=== PATIENT | male | born 1940 | race Caucasian/White ===

== ENCOUNTER 2017-08-20 12:15 | Outpatient (RCR) | payer MEDICARE, OTHER, SELFPAY ==
--- NOTE | 2017-07-11 11:16 | PT.OTN ---
Current Diagnoses Achilles tendinitis, left leg (07/11/17) Transition note: On July 10, 2017 our therapy services consisting of Speech, Occupational, and Physical Therapy transitioned from the [employer] electronic documentation system to a new [employer] electronic documentation system.?? All documentation prior to July 10 can be found under [employer] saved data. From July 10 forward all medical record documentation will be in [employer] 6[employer]1.
--- NOTE | 2017-07-11 15:21 | PT.OTN ---
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 6 PT-OP-C Subjective Start: 07/11/17 14:50 Freq: Status: Active Protocol: Activity Type Activity Date Activity User E-Sign Co-Sign Detail Recorded Client Recorded Date Recorded By Document 07/11/17 14:57 CHUY [id number] 07/11/17 14:59 EA 07/11/17 14:57 OP-PT Subjective [Patient Comments] -Patient Comments Pt reports able to help his neighbour to move furniture and left heel pain did not increa -Patient Reported Progress Improving PT-OP-Q Treatments Start: 07/11/17 14:50 Freq: Status: Active Protocol: Activity Type Activity Date Activity User E-Sign Co-Sign Detail Recorded Client Recorded Date Recorded By Document 07/11/17 15:04 CHUY [id number] 07/11/17 15:06 EA 07/11/17 15:04 Cardio Equipment [Recumbent Stepper (Sci-Fit)] -Duration (Minutes) 5 -Resistance 2 -Seat Position seat 12 w/ no arm help Gym Equipment [Shuttle Recovery] Unilateral Squats -Resistance 1-3 cords -Shuttle Recovery Platform Stable -Reps/Time 12 x3 Therapeutic Exercises [Sitting Exercises] 1 -Sitting Exercise Name GTB ankle plantarflexion -Side left -Resistance green TB -Reps/Minutes 12 x 3 [Other Exercises] 2 -Other Exercise Name Sit to stand heel raises w/ rails support -Side bilateral -Resistance BW -Reps/Minutes 10 x 2 1 -Other Exercise Name 4 step down and up backward leading w/ right foot -Side left -Resistance BW -Equipment Used step rails for support -Reps/Minutes 10x2 Manual Therapy Treatment [Soft Tissue Mobilization] 2 -Body Location Gastrocsoleus -Mobilization Type Sustained Pressure -Intensity/Depth Moderate -Body Position Prone 1 -Mobilization Type Cross-Friction -Intensity/Depth Moderate -Body Position Prone -Comments Left heel cord to calcaneal junction Self-Care/Home Management Treatment [Education] -Patient Education Home Exercise Program [Activities] -Self-Care/Home Management Activities TB exercises PT-OP-R Modalities Start: 07/11/17 14:50 Freq: Status: Active Protocol: Activity Type Activity Date Activity User E-Sign Co-Sign Detail Recorded Client Recorded Date Recorded By Document 07/11/17 15:00 CHUY [id number] 07/11/17 15:04 EA 07/11/17 15:00 Electric Stimulation [Electric Stimulation] Interferential Current (IFC) -Body Location L, gastrocsoleus -Duration (Minutes) 15 -Patient Position Sidelying -Combined With Heat/Cold Cold Pack Hot Pack/Cold Pack [Treatment] Cold Pack -Location left heel -Patient Position Sidelying -Treatment Duration (minutes) 15 -Patient Tolerance Good Ultrasound Therapy [Treatment] Left Ankle -Treatment Duration (minutes) 5 -Patient Position Prone -Coupling Medium Ultrasound Gel -Frequency Setting (mHz) 3 -Mode Setting Continuous -Intensity Setting (w/cm2) 1 -Patient Tolerance Good PT-OP-T Assessment and Plan Start: 07/11/17 14:50 Freq: Status: Active Protocol: Activity Type Activity Date Activity User E-Sign Co-Sign Detail Recorded Client Recorded Date Recorded By Document 07/11/17 14:59 CHUY [id number] 07/11/17 15:00 EA 07/11/17 14:59 Physical Therapy Assessment [Assessment Summary] -Assessment Patient tolerated treatment well w/ no signs of adverse effect after therapeutic exercises. Physical Therapy Plan [Next Visit Focus/Plan] -Next Visit Plan Cont. with current program , advance as toerated.
--- NOTE | 2017-07-16 16:15 | PT.OTN ---
Current Diagnoses Achilles tendinitis, left leg (07/16/17) Physical Therapy Treatment Note PT-OP-A Visit Information Start: 07/11/17 14:50 Freq: Status: Active Protocol: Activity Type Activity Date Activity User E-Sign Co-Sign Detail Recorded Client Recorded Date Recorded By Document 07/16/17 15:59 EA [id number] 07/16/17 16:13 EA 07/16/17 15:59 Out-Patient Physical Therapy Visit Information [Visit Information] -Total Visit Minutes 60 -Visit Number 7 PT-OP-C Subjective Start: 07/11/17 14:50 Freq: Status: Active Protocol: Activity Type Activity Date Activity User E-Sign Co-Sign Detail Recorded Client Recorded Date Recorded By Document 07/16/17 15:59 EA [id number] 07/16/17 16:13 EA 07/16/17 15:59 OP-PT Subjective [Patient Comments] -Patient Comments Patient reports left heel is getting better and he has been doing yard work and no reports of aggravating factors at this time. PT-OP-Q Treatments Start: 07/11/17 14:50 Freq: Status: Active Protocol: Activity Type Activity Date Activity User E-Sign Co-Sign Detail Recorded Client Recorded Date Recorded By Document 07/16/17 15:59 EA [id number] 07/16/17 16:13 EA 07/16/17 15:59 Cardio Equipment [Recumbent Stepper (Sci-Fit)] -Duration (Minutes) 5 -Resistance 2 -Seat Position seat 12 w/ no arm help Gym Equipment [Shuttle Recovery] Unilateral Squats -Resistance 1-3 cords -Shuttle Recovery Platform Stable -Reps/Time 12 x3 Therapeutic Exercises [Sitting Exercises] 1 -Sitting Exercise Name GTB ankle plantarflexion -Side left -Resistance green TB -Reps/Minutes 12 x 3 [Other Exercises] 2 -Other Exercise Name Sit to stand heel raises w/ rails support -Side bilateral -Resistance BW -Reps/Minutes 10 x 2 1 -Other Exercise Name 4 step down and up backward leading w/ right foot -Side left -Resistance BW -Equipment Used step rails for support -Reps/Minutes 10x2 Manual Therapy Treatment [Soft Tissue Mobilization] 2 -Body Location Gastrocsoleus -Mobilization Type Sustained Pressure -Intensity/Depth Moderate -Body Position Prone 1 -Mobilization Type Cross-Friction -Intensity/Depth Moderate -Body Position Prone -Comments Left heel cord to calcaneal junction PT-OP-R Modalities Start: 07/11/17 14:50 Freq: Status: Active Protocol: Activity Type Activity Date Activity User E-Sign Co-Sign Detail Recorded Client Recorded Date Recorded By Document 07/16/17 15:59 CHUY [id number] 07/16/17 16:13 EA 07/16/17 15:59 Hot Pack/Cold Pack [Treatment] Cold Pack -Location left heel -Patient Position Sidelying -Treatment Duration (minutes) 15 -Patient Tolerance Good Ultrasound Therapy [Treatment] Left Ankle -Treatment Duration (minutes) 5 -Patient Position Prone -Coupling Medium Ultrasound Gel -Frequency Setting (mHz) 3 -Mode Setting Continuous -Intensity Setting (w/cm2) 1 -Patient Tolerance Good PT-OP-T Assessment and Plan Start: 07/11/17 14:50 Freq: Status: Active Protocol: Activity Type Activity Date Activity User E-Sign Co-Sign Detail Recorded Client Recorded Date Recorded By Document 07/16/17 15:59 CHUY [id number] 07/16/17 16:13 EA 07/16/17 15:59 Physical Therapy Assessment [Assessment Summary] -Assessment Patient is progressing well Physical Therapy Plan [Next Visit Focus/Plan] -Next Visit Plan Cont. w/ current plan and progress as tolerated
--- NOTE | 2017-07-19 16:36 | PT.OTN ---
Current Diagnoses Achilles tendinitis, left leg (07/19/17) Physical Therapy Treatment Note PT-OP-A Visit Information Start: 07/11/17 14:50 Freq: Status: Active Protocol: Document 07/19/17 16:31 EA (Rec: 07/19/17 16:35 EA [id number]) Out-Patient Physical Therapy Visit Information Visit Information Visit Type Treatment Note Total Visit Minutes 60 Visit Number 8 PT-OP-C Subjective Start: 07/11/17 14:50 Freq: Status: Active Protocol: Document 07/19/17 16:31 EA (Rec: 07/19/17 16:35 EA [id number]) OP-PT Subjective Patient Comments Patient Comments Patient reports has been on his knees all day and foot is quite sore today. PT-OP-Q Treatments Start: 07/11/17 14:50 Freq: Status: Active Protocol: Document 07/19/17 16:31 EA (Rec: 07/19/17 16:35 EA [id number]) Cardio Equipment Recumbent Stepper (Sci-Fit) Duration (Minutes) 5 Resistance 2 Seat Position seat 12 w/ no arm help Gym Equipment Shuttle Recovery Unilateral Squats Resistance 1-3 cords Shuttle Recovery Platform Stable Reps/Time 12 x3 Therapeutic Exercises Sitting Exercises 1 Sitting Exercise Name GTB ankle plantarflexion Side left Resistance green TB Reps/Minutes 12 x 3 Other Exercises 2 Other Exercise Name Sit to stand heel raises w/ rails support Side bilateral Resistance BW Reps/Minutes 10 x 2 1 Other Exercise Name 4 step down and up backward leading w/ right foot Side left Resistance BW Equipment Used step rails for support Reps/Minutes 10x2 Manual Therapy Treatment Soft Tissue Mobilization 2 Body Location Gastrocsoleus Mobilization Type Sustained Pressure Intensity/Depth Moderate Body Position Prone 1 Mobilization Type Cross-Friction Intensity/Depth Moderate Body Position Prone Comments Left heel cord to calcaneal junction PT-OP-R Modalities Start: 07/11/17 14:50 Freq: Status: Active Protocol: Document 07/19/17 16:31 EA (Rec: 07/19/17 16:35 EA [id number]) Ultrasound Therapy Treatment Left Ankle Treatment Duration (minutes) 5 Patient Position Prone Coupling Medium Ultrasound Gel Frequency Setting (mHz) 3 Mode Setting Continuous Intensity Setting (w/cm2) 1 Patient Tolerance Good PT-OP-T Assessment and Plan Start: 07/11/17 14:50 Freq: Status: Active Protocol: Document 07/19/17 16:31 CHUY (Rec: 07/19/17 16:35 EA [id number]) Physical Therapy Assessment Assessment Summary Assessment Patient tolerated treatment well Physical Therapy Plan Next Visit Focus/Plan Next Visit Plan Advanced as tolerated
--- NOTE | 2017-07-25 17:02 | PT.OTN ---
Current Diagnoses Achilles tendinitis, left leg (07/25/17) Physical Therapy Treatment Note PT-OP-A Visit Information Start: 07/11/17 14:50 Freq: Status: Active Protocol: Document 07/25/17 15:14 EA (Rec: 07/25/17 15:24 EA [id number]) Out-Patient Physical Therapy Visit Information Visit Information Visit Type Treatment Note Total Visit Minutes 60 Visit Number 9 PT-OP-C Subjective Start: 07/11/17 14:50 Freq: Status: Active Protocol: Document 07/25/17 15:14 EA (Rec: 07/25/17 15:24 EA [id number]) OP-PT Subjective Patient Comments Patient Comments Patient reports that he has been working in the yard and no increased in pain and he feels that it's getting better . PT-OP-Q Treatments Start: 07/11/17 14:50 Freq: Status: Active Protocol: Document 07/25/17 15:14 EA (Rec: 07/25/17 15:24 EA [id number]) Cardio Equipment Recumbent Stepper (Sci-Fit) Duration (Minutes) 5 Resistance 3 Seat Position seat 12 w/ no arm help Gym Equipment Shuttle Recovery Unilateral Squats Resistance 2-4 cords Shuttle Recovery Platform Stable Reps/Time 12 x3 Therapeutic Exercises Prone Exercises 1 Prone Exercise Name Flexibility exercises to left HIP ER, and calves Reps/Minutes x 30 SH x 3 Sitting Exercises 1 Sitting Exercise Name GTB ankle plantarflexion Side left Resistance green TB Reps/Minutes 12 x 3 Other Exercises 2 Other Exercise Name Sit to stand heel raises w/ rails support Side bilateral Resistance BW Reps/Minutes 10 x 2 1 Other Exercise Name 4 step down and up backward leading w/ right foot Side left Resistance BW Equipment Used step rails for support Reps/Minutes 10x2 Manual Therapy Treatment Soft Tissue Mobilization 2 Body Location Gastrocsoleus Mobilization Type Sustained Pressure Intensity/Depth Moderate Body Position Prone 1 Mobilization Type Cross-Friction Intensity/Depth Moderate Body Position Prone Comments Left heel cord to calcaneal junction PT-OP-R Modalities Start: 07/11/17 14:50 Freq: Status: Active Protocol: Document 07/25/17 15:14 EA (Rec: 07/25/17 15:24 EA [id number]) Ultrasound Therapy Treatment Left Ankle Treatment Duration (minutes) 5 Patient Position Prone Coupling Medium Ultrasound Gel Frequency Setting (mHz) 3 Mode Setting Continuous Intensity Setting (w/cm2) 1 Patient Tolerance Good PT-OP-T Assessment and Plan Start: 07/11/17 14:50 Freq: Status: Active Protocol: Document 07/25/17 15:14 CHUY (Rec: 07/25/17 15:24 EA [id number]) Physical Therapy Assessment Goals One Impairment LEFS score of 45 Boom Man Goal (LTG) LEFS score of 55 LTG Duration 2 Progress Towards Goals Progress Towards Goals Progressing Toward Goals Assessment Summary Assessment Patient have improved gait and has decreased tednerness to left heel. Recommended to see patient in two weeks. Physical Therapy Plan Next Visit Focus/Plan Next Visit Plan Advance as tolerated. Re- assess next visit.
--- NOTE | 2017-08-07 16:00 | PT.OTN ---
Current Diagnoses Achilles tendinitis, left leg (08/07/17) Physical Therapy Treatment Note PT-OP-A Visit Information Start: 07/11/17 14:50 Freq: Status: Active Protocol: Document 08/07/17 14:18 EA (Rec: 08/07/17 14:31 EA [id number]) Out-Patient Physical Therapy Visit Information Visit Information Visit Type Treatment Note Visit Note No charge re-eval performed at this visit. Total Visit Minutes 60 Visit Number 10 PT-OP-C Subjective Start: 07/11/17 14:50 Freq: Status: Active Protocol: Document 08/07/17 14:18 EA (Rec: 08/07/17 14:31 EA [id number]) OP-PT Subjective Patient Comments Patient Comments Patient reports neck is improving very well and pain frequecy is much less than before. Patient reports that he has been doing yard work and pain to left heel is not bother him as much as before. Patient Reported Progress Improving Patient Questionnaires Lower Extremity Functional Scale LEFS Score 60 LEFS Impairment 20 to 39% Impaired (Score 48- 62) PT-OP-Q Treatments Start: 07/11/17 14:50 Freq: Status: Active Protocol: Document 08/07/17 14:18 EA (Rec: 08/07/17 14:31 EA [id number]) Therapeutic Exercises Prone Exercises 1 Prone Exercise Name Flexibility exercises to left HIP ER, and calves Reps/Minutes x 30 SH x 3 Sitting Exercises 1 Sitting Exercise Name RTB ankle plantarflexion Side left Resistance green TB Reps/Minutes 12 x 3 Other Exercises 2 Other Exercise Name Sit to stand heel raises w/ rails support Side bilateral Resistance BW Reps/Minutes 10 x 2 1 Other Exercise Name 6 step down and up backward leading w/ right foot Side left Resistance BW Equipment Used step rails for support Reps/Minutes 10x2 Manual Therapy Treatment Soft Tissue Mobilization 2 Body Location Gastrocsoleus Mobilization Type Sustained Pressure Intensity/Depth Moderate Body Position Prone 1 Mobilization Type Cross-Friction Intensity/Depth Moderate Body Position Prone Comments Left heel cord to calcaneal junction PT-OP-R Modalities Start: 07/11/17 14:50 Freq: Status: Active Protocol: Document 08/07/17 14:18 EA (Rec: 08/07/17 14:31 EA [id number]) Hot Pack/Cold Pack Treatment Cold Pack Location left heel Patient Position Sidelying Treatment Duration (minutes) 15 Patient Tolerance Good Ultrasound Therapy Treatment Left Ankle Treatment Duration (minutes) 5 Patient Position Prone Coupling Medium Ultrasound Gel Frequency Setting (mHz) 3 Mode Setting Continuous Intensity Setting (w/cm2) 1 Patient Tolerance Good PT-OP-T Assessment and Plan Start: 07/11/17 14:50 Freq: Status: Active Protocol: Document 08/07/17 14:18 EA (Rec: 08/07/17 14:31 EA [id number]) Physical Therapy Assessment Goals Two Impairment [place] 1 tenderness to distal TA attachment Fpc Goal (LTG) Patient will exhibit 0 tenderness to distal L heel cord attachment LTG Duration 4 wks One Impairment LEFS score of 60 Fpc Goal (LTG) LEFS score of 65 LTG Duration 4 wks Progress Towards Goals Progress Towards Goals Progressing Toward Goals Progress Comments Patient is progress well toward goals and will cont. to benefit with skilled PT. Assessment Summary Assessment Patient is progress well toward goals and will cont. to benefit with skilled PT. Physical Therapy Plan Frequency and Duration Frequency of Treatment 1x/Week Plan of Care Start Date 08/06/17 Plan of Care End Date 09/03/17 Therapeutic Interventions Therapeutic Interventions Home Exercise Program Neuromuscular Re-education Patient/Caregiver Education Self-Care/Home Management Soft Tissue Mobilization Taping Therapeutic Exercises Modalities Cold Pack/Ice Massage Hot Packs Ultrasound Next Visit Focus/Plan Next Visit Plan Functional mobility exercises that mimics kneeling, gardening and stari climbing. Please Sign and Return: I have reviewed this Plan of Care and certify that the skilled therapy services above are required to meet the patient???s needs. Physician Signature Date Printed Name and Credentials Clinical Instructor Signature Printed Name and Credentials
--- NOTE | 2017-08-07 16:01 | PT.OPPOC ---
Current Diagnoses Achilles tendinitis, left leg (08/07/17) Provider Visit Care Team Role Provider Type Dhruv Ocampo MD Family Provider Physician Primary Care Provider Specialty: Family Practice Address: [address] [place] [address], [id number] Email: [email or web address] Alvaro Peter DPM Attending Provider Physician Specialty: Podiatry Address: [address] [place] [address], [id number] Email: [email or web address] Plan Of Care PT-OP-T Assessment and Plan Start: 07/11/17 14:50 Freq: Status: Active Protocol: Document 08/07/17 14:18 EA (Rec: 08/07/17 14:31 EA [id number]) Physical Therapy Assessment Goals Two Impairment [place] 1 tenderness to distal TA attachment Residential Goal (LTG) Patient will exhibit 0 tenderness to distal L heel cord attachment LTG Duration 4 wks One Impairment LEFS score of 60 Residential Goal (LTG) LEFS score of 65 LTG Duration 4 wks Progress Towards Goals Progress Towards Goals Progressing Toward Goals Progress Comments Patient is progress well toward goals and will cont. to benefit with skilled PT. Assessment Summary Assessment Patient is progress well toward goals and will cont. to benefit with skilled PT. Physical Therapy Plan Frequency and Duration Frequency of Treatment 1x/Week Plan of Care Start Date 08/06/17 Plan of Care End Date 09/03/17 Therapeutic Interventions Therapeutic Interventions Home Exercise Program Neuromuscular Re-education Patient/Caregiver Education Self-Care/Home Management Soft Tissue Mobilization Taping Therapeutic Exercises Modalities Cold Pack/Ice Massage Hot Packs Ultrasound Next Visit Focus/Plan Next Visit Plan Functional mobility exercises that mimics kneeling, gardening and stari climbing. Plan of Care Dates Plan of Care Start Date 08/06/17 Plan of Care End Date 09/03/17 Please Sign and Return: I have reviewed this Plan of Care and certify that the skilled therapy services above are required to meet the patient???s needs. Physician Signature Date Printed Name and Credentials Clinical Instructor Signature Printed Name and Credentials
--- NOTE | 2017-08-13 13:43 | PT.OTN ---
Current Diagnoses Achilles tendinitis, left leg (08/13/17) Physical Therapy Treatment Note PT-OP-A Visit Information Start: 07/11/17 14:50 Freq: Status: Active Protocol: Document 08/13/17 13:38 EA (Rec: 08/13/17 13:43 EA [id number]) Out-Patient Physical Therapy Visit Information Visit Information Visit Type Treatment Note Total Visit Minutes 45 Visit Number 11 PT-OP-C Subjective Start: 07/11/17 14:50 Freq: Status: Active Protocol: Document 08/13/17 13:38 EA (Rec: 08/13/17 13:43 EA [id number]) OP-PT Subjective Patient Comments Patient Comments Patient reports left ankle is feeling much better at this time. PT-OP-Q Treatments Start: 07/11/17 14:50 Freq: Status: Active Protocol: Document 08/13/17 13:38 EA (Rec: 08/13/17 13:43 EA [id number]) Cardio Equipment Recumbent Stepper (Sci-Fit) Duration (Minutes) 5 Resistance 3 Seat Position seat 12 w/ no arm help Gym Equipment Shuttle Recovery Unilateral Squats Resistance 2-4 cords Shuttle Recovery Platform Stable Reps/Time 12 x3 Therapeutic Exercises Prone Exercises 1 Prone Exercise Name Flexibility exercises to left HIP ER, and calves Reps/Minutes x 30 SH x 3 Sitting Exercises 1 Sitting Exercise Name RTB ankle plantarflexion Side left Resistance green TB Reps/Minutes 12 x 3 Standing Exercises 1 Standing Exercise Name Lunges with // bars support Reps/Minutes x 8 reps x 2 sets each side Other Exercises 2 Other Exercise Name Sit to stand heel raises w/ rails support Side bilateral Resistance BW Reps/Minutes 10 x 2 1 Other Exercise Name 6 step down and up backward leading w/ right foot Side left Resistance BW Equipment Used step rails for support Reps/Minutes 10x2 PT-OP-R Modalities Start: 07/11/17 14:50 Freq: Status: Active Protocol: Document 08/13/17 13:38 EA (Rec: 08/13/17 13:43 EA [id number]) Ultrasound Therapy Treatment Left Ankle Treatment Duration (minutes) 5 Patient Position Prone Coupling Medium Ultrasound Gel Frequency Setting (mHz) 3 Mode Setting Continuous Intensity Setting (w/cm2) 1.5 PT-OP-T Assessment and Plan Start: 07/11/17 14:50 Freq: Status: Active Protocol: Document 08/13/17 13:38 EA (Rec: 08/13/17 13:43 EA [id number]) Physical Therapy Assessment Assessment Summary Assessment Tolerated treatment well. Physical Therapy Plan Next Visit Focus/Plan Next Note Type Treatment Note Next Visit Plan Progress as tolerated Please Sign and Return: I have reviewed this Plan of Care and certify that the skilled therapy services above are required to meet the patient?s needs. Physician Signature Date Printed Name and Credentials Clinical Instructor Signature Printed Name and Credentials
--- NOTE | 2017-08-20 17:33 | PT.OTN ---
Current Diagnoses Achilles tendinitis, left leg (08/20/17) Physical Therapy Treatment Note PT-OP-A Visit Information Start: 07/11/17 14:50 Freq: Status: Active Protocol: Document 08/20/17 12:56 EA (Rec: 08/20/17 13:00 EA [id number]) Out-Patient Physical Therapy Visit Information Visit Information Visit Type Treatment Note Total Visit Minutes 30 Visit Number 12 PT-OP-C Subjective Start: 07/11/17 14:50 Freq: Status: Active Protocol: Document 08/20/17 12:56 EA (Rec: 08/20/17 13:00 EA [id number]) OP-PT Subjective Patient Comments Patient Comments Patient reports pain is very minimal and frequency is less than 3 x per week. Patient reports he is now okay to discharge from skilled PT. PT-OP-Q Treatments Start: 07/11/17 14:50 Freq: Status: Active Protocol: Document 08/20/17 13:05 EA (Rec: 08/20/17 13:07 EA [id number]) Cardio Equipment Recumbent Stepper (Sci-Fit) Duration (Minutes) 5 Resistance 3 Seat Position seat 12 w/ no arm help Gym Equipment Shuttle Recovery Unilateral Squats Resistance 2-4 cords Shuttle Recovery Platform Stable Reps/Time 12 x3 Therapeutic Exercises Prone Exercises 1 Prone Exercise Name Flexibility exercises to left HIP ER, and calves Reps/Minutes x 30 SH x 3 Comments home component Sitting Exercises 1 Sitting Exercise Name RTB ankle plantarflexion Side left Resistance green TB Reps/Minutes 12 x 3 Comments Home component Standing Exercises 1 Standing Exercise Name Lunges with // bars support Reps/Minutes x 8 reps x 2 sets each side Comments HEP Other Exercises 2 Other Exercise Name Sit to stand heel raises w/ rails support Side bilateral Resistance BW Reps/Minutes 10 x 2 Comments home component 1 Other Exercise Name 6 step down and up backward leading w/ right foot Side left Resistance BW Equipment Used step rails for support Reps/Minutes 10x2 Comments Home component Self-Care/Home Management Treatment Education Patient Education Home Exercise Program Joint Protection Pain Management PT-OP-R Modalities Start: 07/11/17 14:50 Freq: Status: Active Protocol: Document 08/20/17 13:05 EA (Rec: 08/20/17 13:07 EA [id number]) Hot Pack/Cold Pack Treatment Cold Pack Location left heel Patient Position Sidelying Treatment Duration (minutes) 10 Patient Tolerance Good PT-OP-T Assessment and Plan Start: 07/11/17 14:50 Freq: Status: Active Protocol: Document 08/20/17 12:56 CHUY (Rec: 08/20/17 13:00 EA [id number]) Physical Therapy Assessment Goals Two Impairment Garde 1 tenderness to distal TA attachment Unhairing Machine Operator Goal (LTG) Patient will exhibit 0 tenderness to distal L heel cord attachment LTG Duration goal reached Progress Towards Goals Progress Towards Goals Progressing Toward Goals Assessment Summary Assessment Patient is discharge today with HEP. Patient tolerated treatment with no signs of discomfort. Patient educated with HEP and exhibit good/safe carryover. Physical Therapy Plan Next Visit Focus/Plan Next Visit Plan discharge. Please Sign and Return: I have reviewed this Plan of Care and certify that the skilled therapy services above are required to meet the patient?s needs. Physician Signature Date Printed Name and Credentials Clinical Instructor Signature Printed Name and Credentials
--- NOTE | 2017-08-20 17:33 | PT.OPDS ---
Current Diagnoses Achilles tendinitis, left leg (08/20/17) Provider Visit Care Team Role Provider Type Dhruv Ocampo MD Family Provider Physician Primary Care Provider Specialty: Family Practice Address: [address] [place] [address], [id number] Email: [email or web address] Alvaro Peter DPM Attending Provider Physician Specialty: Podiatry Address: [address] [place] [address], [id number] Email: [email or web address] Visit Number Visit Number 6 Discharge Summary PT-OP-C Subjective Start: 07/11/17 14:50 Freq: Status: Active Protocol: Document 08/20/17 12:56 EA (Rec: 08/20/17 13:00 EA [id number]) OP-PT Subjective Patient Comments Patient Comments Patient reports pain is very minimal and frequency is less than 3 x per week. Patient reports he is now okay to discharge from skilled PT. PT-OP-T Assessment and Plan Start: 07/11/17 14:50 Freq: Status: Active Protocol: Document 08/20/17 12:56 EA (Rec: 08/20/17 13:00 EA [id number]) Physical Therapy Assessment Goals Two Impairment Garde 1 tenderness to distal TA attachment Web Operations Administrator Goal (LTG) Patient will exhibit 0 tenderness to distal L heel cord attachment LTG Duration goal reached Progress Towards Goals Progress Towards Goals Progressing Toward Goals Assessment Summary Assessment Patient is discharge today with HEP. Patient tolerated treatment with no signs of discomfort. Patient educated with HEP and exhibit good/safe carryover. Physical Therapy Plan Next Visit Focus/Plan Next Visit Plan discharge.
== END 2017-11-09 09:45 ==
LOC: PHYS 12:15
PROVIDERS: Family Provider Family Medicine; PCP Family Medicine; Visit Provider Podiatrist
DX: M76.62 Achilles tendinitis, left leg (principal)
CPT/HCPCS: 97010; 97014; 97110; 97140; 97535; G0283

== ENCOUNTER → 2017-11-14 10:00 | Outpatient (CLI) | payer MEDICARE, OTHER, SELFPAY ==
[2017-11-14 11:03] LABS: Add Manual Diff / Slide Review NO; Basophils Percent Auto 0.8 % (0-2); Eosinophils Percent Auto 4.8 % (2-4); Hematocrit 41.5 % (41-53); Hemoglobin 14.1 g/dL (13.5-17.5); Mean Corpuscular HGB Conc 33.9 % (30-36); Mean Corpuscular Hemoglobin 34.3 PG (26-34); Mean Corpuscular Volume 101.3 fL (80-100); Monocytes Percent Auto 11.4 % (3-14); Neutrophils Absolute Auto 4000 /uL (3000-5900); Platelet Count 186 X10^3/uL (150-400); Red Cell Distribution Width 13.5 % (11.6-14.8); White Blood Cell Count 6.6 X10^3/uL (4.5-11.0)
[2017-11-14 11:17] LABS: Alanine Aminotransferase 30 IU/L (21-72); Albumin 4.8 g/dL (3.5-5.0); Albumin Globulin Ratio 1.7 (1.0-2.8); Alkaline Phosphatase 80 U/L (38-126); Aspartate Aminotransferase 32 IU/L (17-59); Bilirubin Total 0.8 mg/dL (0.2-1.3); Blood Urea Nitrogen 22 mg/dL (9-20); Calcium 9.7 mg/dL (8.4-10.2); Carbon Dioxide 23 mmol/L (22-32); Chloride 108 mmol/L (98-107); Cholesterol 108 mg/dL (140-199); Estimated Glomerular Filt Rate > 60.0 mL/min (>60); Globulin 2.9 g/dL (1.7-4.1); Glucose 100 mg/dL (80-110); HDL Cholesterol 38 mg/dL (40-60); HEMOLYSIS < 15 (0-50); LDL Cholesterol Calculated 51 mg/dL (<100); Sodium 147 mmol/L (137-145); Total Protein 7.7 g/dL (6.3-8.2); Triglycerides 96 mg/dL (35-150)
== END ==
PROVIDERS: PCP Family Medicine; Visit Provider Family Medicine
DX: E78.2 Mixed hyperlipidemia (principal); I25.10 Atherosclerotic heart disease of native coronary artery without angina pectoris; I50.9 Heart failure, unspecified
CPT/HCPCS: 36415; 80053; 80061; 85025

== ENCOUNTER → 2018-04-26 11:41 | Outpatient (CLI) | payer MEDICARE, OTHER, SELFPAY ==
[2018-04-26 12:42] LABS: Blood Urea Nitrogen 24 mg/dL (9-20); Calcium 9.9 mg/dL (8.4-10.2); Carbon Dioxide 22 mmol/L (22-32); Chloride 106 mmol/L (98-107); Estimated Glomerular Filt Rate 58.7 mL/min (>60); Glucose 106 mg/dL (80-110); HEMOLYSIS 22 (0-50); Potassium 4.6 mmol/L (3.4-5.1); Sodium 142 mmol/L (137-145)
== END ==
PROVIDERS: Family Provider Internal Medicine; PCP Internal Medicine; Visit Provider Nurse Practitioner Family
DX: I50.22 Chronic systolic (congestive) heart failure (principal)
CPT/HCPCS: 36415; 80048

== ENCOUNTER → 2018-10-11 14:10 | Outpatient (CLI) | payer MEDICARE, OTHER, SELFPAY ==
--- NOTE | 2018-10-11 | DI.US.S_ITS ---
PROCEDURE: US ABDOMEN COMPLETE INDICATIONS: RIGHT FLANK PAIN TECHNIQUE: Real-time scanning was performed of the abdominal and retroperitoneal organs, with image documentation. COMPARISON: None. FINDINGS: Liver: Liver is normal in size and homogeneous in echotexture. Gallbladder: Gallstones are seen. The gallbladder wall is not thickened, measuring 3 mm or less. No specific pericholecystic fluid is seen. The sonographic Tenorio sign is negative. Biliary ducts: Intrahepatic bile ducts are non-dilated. Extrahepatic bile duct caliber measures 4 mm. Normal is 6-7 mm or less in diameter, or 10 mm or less post-cholecystectomy. Pancreas: Visualized portions of the pancreas are sonographically normal. Spleen: Spleen is normal in size and homogeneous in echotexture. Kidneys: Kidneys are normal in size and echotexture. Right kidney measures 10.5 cm long; left kidney measures 9.9 cm long. No hydronephrosis or nephrolithiasis. No solid masses. The renal cortex measures within normal limits for thickness. A simple appearing renal cyst is seen superiorly that measures up to 2.3 cm in Aorta: Visualized aorta is normal in caliber at less than 3 cm. Iliacs: Proximal common iliac arteries are normal in caliber at less than 2.5 cm. IVC: Intrahepatic inferior vena cava is patent. Miscellaneous: No free abdominal fluid. IMPRESSION: Negative for hydronephrosis. No shadowing stones are seen. A simple appearing right renal cyst is seen that measures up to 2.3 cm. A gallstone can be seen, without additional sonographic signs of cholecystitis. Dictated by: Kel Lin M.D. on 10/11/2018 at 14:56 Approved by: Kel Lin M.D. on 10/11/2018 at 14:57
== END ==
PROVIDERS: PCP Internal Medicine; Visit Provider Internal Medicine
DX: R10.9 Unspecified abdominal pain (principal); N28.1 Cyst of kidney, acquired; K80.80 Other cholelithiasis without obstruction
CPT/HCPCS: 76700

== ENCOUNTER → 2019-01-07 14:51 | Outpatient (CLI) | payer MEDICARE, OTHER, SELFPAY ==
[2019-01-07 15:47] LABS: Add Manual Diff / Slide Review NO; Basophils Absolute Auto 0 /uL (0-100); Basophils Percent Auto 0.8 % (0-2); Eosinophils Absolute Auto 100 /uL (0-450); Eosinophils Percent Auto 1.9 % (2-4); Hematocrit 41.5 % (41-53); Hemoglobin 14.1 g/dL (13.5-17.5); Lymphocytes Absolute Auto 1500 /uL (1100-4500); Lymphocytes Percent Auto 23.7 % (25-40); Mean Corpuscular HGB Conc 34.1 % (30-36); Mean Corpuscular Hemoglobin 34.2 PG (26-34); Mean Corpuscular Volume 100.5 fL (80-100); Monocytes Absolute Auto 700 /uL (0-900); Neutrophils Absolute Auto 3800 /uL (1500-7000); Neutrophils Percent Auto 61.6 % (50-75); Platelet Count 178 X10^3/uL (150-400); Red Blood Cell Count 4.13 X10^6/uL (4.5-5.9); Red Cell Distribution Width 13.1 % (11.6-14.8); White Blood Cell Count 6.2 X10^3/uL (4.5-11.0)
[2019-01-07 16:24] LABS: Alanine Aminotransferase 38 IU/L (21-72); Albumin 4.7 g/dL (3.5-5.0); Albumin Globulin Ratio 1.9 (1.0-2.8); Alkaline Phosphatase 66 U/L (38-126); Aspartate Aminotransferase 31 IU/L (17-59); BUN Creatinine Ratio 13.8 (6-22); Bilirubin Total 0.9 mg/dL (0.2-1.3); Blood Urea Nitrogen 18 mg/dL (9-20); Calcium 9.9 mg/dL (8.4-10.2); Carbon Dioxide 23 mmol/L (22-32); Chloride 106 mmol/L (98-107); Estimated Glomerular Filt Rate 53.4 mL/min (>60); Globulin 2.5 g/dL (1.7-4.1); Glucose 99 mg/dL (80-110); HEMOLYSIS < 15 (0-50); Potassium 4.5 mmol/L (3.4-5.1); Sodium 141 mmol/L (137-145); Total Protein 7.2 g/dL (6.3-8.2)
== END ==
PROVIDERS: Family Provider Psychiatry & Neurology Neurology; PCP Internal Medicine; Visit Provider Nurse Practitioner Family
DX: I50.22 Chronic systolic (congestive) heart failure (principal); G25.0 Essential tremor
CPT/HCPCS: 36415; 80053; 85025

== ENCOUNTER → 2019-09-02 14:35 | Outpatient (CLI) | payer MEDICARE, OTHER, SELFPAY ==
[2019-09-02 16:40] LABS: BUN Creatinine Ratio 17.6 (6-22); Blood Urea Nitrogen 21 mg/dL (9-20); Calcium 9.9 mg/dL (8.4-10.2); Carbon Dioxide 17 mmol/L (22-32); Chloride 111 mmol/L (98-107); Glucose 122 mg/dL (80-110); HEMOLYSIS < 15 (0-50); Potassium 3.8 mmol/L (3.4-5.1); Sodium 141 mmol/L (137-145)
== END ==
PROVIDERS: Family Provider Psychiatry & Neurology Neurology; PCP Internal Medicine; Referring Provider Internal Medicine Cardiovascular Disease; Visit Provider Internal Medicine Cardiovascular Disease
DX: I50.22 Chronic systolic (congestive) heart failure (principal)
CPT/HCPCS: 36415; 80048

== ENCOUNTER → 2020-04-06 13:16 | Outpatient (CLI) | payer MEDICARE, OTHER, SELFPAY ==
[2020-04-06] MEDS: COVID-19 VACC #1, MRNA(MOD) 100 MCG/0.5 ML VIAL IM (13:22)
== END ==
PROVIDERS: Family Provider Psychiatry & Neurology Neurology; PCP Internal Medicine; Visit Provider Internal Medicine
DX: Z23 Encounter for immunization (principal)
CPT/HCPCS: 0011A; 91301

== ENCOUNTER → 2020-05-04 13:26 | Outpatient (CLI) | payer MEDICARE, OTHER, SELFPAY ==
[2020-05-04] MEDS: COVID-19 VACC #2, MRNA(MOD) 100 MCG/0.5 ML VIAL IM (13:29)
== END ==
PROVIDERS: Family Provider Psychiatry & Neurology Neurology; PCP Internal Medicine; Visit Provider Internal Medicine
DX: Z23 Encounter for immunization (principal)
CPT/HCPCS: 0012A; 91301

== ENCOUNTER → 2020-08-13 18:56 | Outpatient (ROUT) | payer MEDICARE, OTHER, SELFPAY ==
[2020-08-13 19:15] LABS: Add Manual Diff / Slide Review NO; Basophils Absolute Auto 0 /uL (0-100); Basophils Percent Auto 0.6 % (0-2); Eosinophils Absolute Auto 200 /uL (0-450); Eosinophils Percent Auto 2.5 % (2-4); Hematocrit 43.2 % (41-53); Hemoglobin 14.1 g/dL (13.5-17.5); Lymphocytes Absolute Auto 1100 /uL (1100-4500); Lymphocytes Percent Auto 16.8 % (25-40); Mean Corpuscular HGB Conc 32.7 % (30-36); Mean Corpuscular Hemoglobin 33.3 PG (26-34); Mean Corpuscular Volume 101.8 fL (80-100); Monocytes Absolute Auto 600 /uL (0-900); Monocytes Percent Auto 9.7 % (3-14); Neutrophils Absolute Auto 4500 /uL (1500-7000); Neutrophils Percent Auto 70.4 % (50-75); Platelet Count 188 X10^3/uL (150-400); Red Blood Cell Count 4.24 X10^6/uL (4.5-5.9); White Blood Cell Count 6.4 X10^3/uL (4.5-11.0)
[2020-08-13 19:34] LABS: Aspartate Aminotransferase 37 IU/L (17-59); Blood Urea Nitrogen 23 mg/dL (9-20); Calcium 10.2 mg/dL (8.4-10.2); Carbon Dioxide 21 mmol/L (22-32); Chloride 107 mmol/L (98-107); Cholesterol 123 mg/dL (140-199); Estimated Glomerular Filt Rate 54.1 mL/min (>60); Glucose 102 mg/dL (80-110); HDL Cholesterol 51 mg/dL (40-60); HEMOLYSIS < 15 (0-50); LDL Cholesterol Calculated 60 mg/dL (<100); Potassium 4.1 mmol/L (3.4-5.1); Sodium 140 mmol/L (137-145); Triglycerides 61 mg/dL (35-150)
== END ==
PROVIDERS: Family Provider Psychiatry & Neurology Neurology; PCP Internal Medicine; Visit Provider Internal Medicine
DX: I10 Essential (primary) hypertension (principal); E78.2 Mixed hyperlipidemia; I48.20 Chronic atrial fibrillation, unspecified
CPT/HCPCS: 80048; 80061; 84443; 84450; 85025

== ENCOUNTER → 2020-08-20 15:27 | Outpatient (CLI) | payer MEDICARE, OTHER, SELFPAY ==
[2020-08-20 16:24] LABS: BUN Creatinine Ratio 13.7 (6-22); Blood Urea Nitrogen 17 mg/dL (9-20); Calcium 9.6 mg/dL (8.4-10.2); Carbon Dioxide 23 mmol/L (22-32); Chloride 105 mmol/L (98-107); Estimated Glomerular Filt Rate 56.1 mL/min (>60); Glucose 107 mg/dL (80-110); HEMOLYSIS < 15 (0-50); Potassium 4.2 mmol/L (3.4-5.1); Sodium 137 mmol/L (137-145)
== END ==
PROVIDERS: Family Provider Psychiatry & Neurology Neurology; PCP Internal Medicine; Referring Provider Internal Medicine Cardiovascular Disease; Visit Provider Internal Medicine Cardiovascular Disease
DX: I50.22 Chronic systolic (congestive) heart failure (principal)
CPT/HCPCS: 36415; 80048

== ENCOUNTER 2021-06-22 13:10 | Inpatient (IN) | payer MEDICARE, OTHER, SELFPAY ==
[2021-06-22] VITALS (30 sets, daily range): BP systolic 102–141; BP diastolic 48–65; PULSE 39–63; RESP 13–24; TEMP 36.2–36.8; O2SAT 97–100; BMI 24.3
--- NOTE | 2021-06-22 13:20 | DI.RAD.S_ITS ---
PROCEDURE: XR CHEST 1V INDICATIONS: short of breath TECHNIQUE: One view of the chest was acquired. COMPARISON: [facility], , CHEST 1 VIEW, 07/13/2016, 7:29. FINDINGS: Surgical changes and devices: Sternotomy and CABG. Lungs and pleura: Lungs are clear. No pleural effusions or pneumothorax. Mediastinum: Mediastinal contours appear normal. Heart size is normal. Bones and chest wall: No suspicious bony lesions. Overlying soft tissues appear unremarkable. IMPRESSION: No acute cardiopulmonary disease. Dictated by: Yris Salinas M.D. on 06/22/2021 at 13:38 Approved by: Yris Salinas M.D. on 06/22/2021 at 13:38
--- NOTE | 2021-06-22 13:22 | ED_ITS ---
HPI - SOB/Dyspnea General Chief Complaint: Shortness of Breath/Dyspnea Stated Complaint: SOB dyspnea Time Seen by Provider: 06/22/21 13:19 Source: patient Mode of arrival: Ambulatory History of Present Illness HPI Narrative: Patient is 81-year-old male who has a history of atrial fibrillation on Eliquis and Coreg presenting with increased weakness. He said he has had shortness of breath for a number of weeks. However he is feeling extremely weak and lightheaded. Heart rate is noted to be intermittently in the 30s. He has no numbness or tingling or obvious focal deficits but complaining of generalized weakness. He has no chest pain or palpitations. No fever chills nausea or vomiting. He states that he has not passed out or fallen. Related Data Home Medications Medication Instructions Recorded Confirmed aspirin 81 mg tablet,delayed 81 mg PO QDAY #0 04/10/16 06/22/21 release omeprazole 20 mg capsule,delayed 20 mg PO DAILY #0 04/10/16 06/22/21 release carvedilol 6.25 mg tablet (Coreg) 6.25 mg PO 1-2XD #0 08/15/16 06/22/21 losartan 25 mg tablet (Cozaar) 12.5 mg PO QDAY #0 09/20/16 06/22/21 spironolactone 25 mg tablet 12.5 mg PO QDAY #0 09/20/16 06/22/21 (Aldactone) [Vitamin B12] 15 ml PO QDAY #0 03/14/17 06/22/21 primidone 50 mg tablet (Mysoline) 1 - 5 tab PO QDAY #0 03/14/17 06/22/21 Disabled Parking Permit See Protocol DAILY 06/22/21 06/22/21 Previous Rx's Medication Instructions Recorded furosemide 40 mg tablet 40 mg PO Q DAY #30 07/05/16 nystatin 100,000 unit/gram topical 1 grey TOPICAL BID #30 gm 03/14/17 cream lamotrigine 200 mg tablet 200 mg PO BID #180 tab 05/31/17 (Lamictal) bupropion HCl 75 mg tablet 75 mg PO BID #60 tab 04/10/18 Allergies Allergy/AdvReac Type Severity Reaction Status Date / Time No Known Drug Allergies Allergy Verified 04/06/20 13:19 Review of Systems Constitutional Constitutional: Denies body ache(s), Denies chills, Denies headache(s), Reports lethargy and Reports weakness Eyes Eyes: Denies blurry vision ENT Ears, Nose, Mouth, and Throat: Denies headache(s) Cardiovascular Cardiovascular: Denies chest pain, Reports irregular heart rhythm (hx afib) and Reports dyspnea Respiratory Respiratory: Denies chest congestion, Denies cough and Reports dyspnea Neurologic Neurologic: Denies headache(s) and Reports weakness Patient History Surgical History (Updated 07/10/17 @ 05:46 by Conversion Provider) Status post appendectomy Status post coronary artery bypass graft Family History (Updated 12/22/14 @ 00:00 by Conversion Provider) Sister Age: 79 COPD (chronic obstructive pulmonary disease) Social History household members: spouse Smoking Status: Never smoker alcohol intake: never Exam Initial Vital Signs Initial Vital Signs: Vital Signs Temperature 97.2 F L 06/22/21 13:13 Pulse Rate 39 L 06/22/21 13:13 Respiratory Rate 24 06/22/21 13:13 Blood Pressure 141/65 H 06/22/21 13:13 Pulse Oximetry 99 06/22/21 13:13 GENERAL: Alert week 81-year-old male slightly pale HEENT: Head atraumatic,EOMI, pupils reactive, face symmetric, moist mucous membranes CARDIOVASCULAR: Bradycardic irregular RESPIRATORY: Breath sounds equal bilaterally, no wheezes rales or rhonchi. ABDOMEN: Soft, nontender. Normoactive bowel sounds all 4 quadrants. No guarding or rebound. EXTREMITIES: Normal range of motion, no clubbing or edema. Neurovascularly intact NEUROLOGICAL: Alert and oriented x4. Digital Account Manager strength equal bilaterally lower extremity equal SKIN: Warm, dry, no laceration, no petechiae, no rashes or lesions. Course Orders Ordered: ED Orders 06/22/21 13:20 XR chest 1V Stat EKG-12 Lead Stat 06/22/21 13:37 D Dimer Stat Partial Thromboplastin Time Stat Prothrombin Time INR Stat 06/22/21 13:45 Complete Blood Count AUTO DIFF Stat Comprehensive Metabolic Panel Stat Lipase Stat MAG [Magnesium] Stat NT-proBNP (BNP-Adult 18+) Stat Troponin & CK Cardiac Panel Stat 06/22/21 13:48 CT head/brain wo con Stat 06/22/21 13:50 COVID19 -Nasal RAPID/Pre-Proc Stat 06/22/21 14:15 Lactate (Lactic Acid) Stat Apixaban (Apixaban 5 Mg Tablet) 5 mg PO BID NAVDEEP Aspirin (Aspirin Ec 81 Mg Tablet) 81 mg PO DAILY NAVDEEP Bupropion HCl (Bupropion 75 Mg Tablet) 75 mg PO BID NAVDEEP Furosemide (Furosemide 40 Mg Tablet) 40 mg PO DAILY NAVDEEP Lamotrigine (Lamotrigine 100 Mg Tablet) 200 mg PO BID NAVDEEP Discontinued Medications Atropine Sulfate (Atropine 1 Mg/10 Ml Syringe) 0.5 mg IV NOW ONE Stop: 06/22/21 14:35 Last Admin: 06/22/21 14:38 Dose: 0.5 mg Documented by: KPETERSON Sodium Chloride (Normal Saline 0.9%) 1,000 mls @ 150 mls/hr IV CONT NAVDEEP Last Infusion: 06/22/21 16:24 Dose: 0 mls/hr Documented by: BTONESherry Admin: 06/22/21 14:18 Dose: 150 mls/hr Documented by: DAMASO Vital Signs Vital signs: Vital Signs - 8 hr 06/22/21 13:13 06/22/21 13:22 06/22/21 13:30 Temperature 97.2 F L Pulse Rate 39 L 50 L 62 Respiratory Rate 24 14 21 Blood Pressure 141/65 H Pulse Oximetry 99 100 100 06/22/21 13:40 06/22/21 13:41 06/22/21 13:50 Temperature Pulse Rate 52 L 51 L 47 L Respiratory Rate 19 20 19 Blood Pressure 128/58 L 105/53 L Pulse Oximetry 99 100 100 06/22/21 13:58 06/22/21 14:00 06/22/21 14:06 Temperature Pulse Rate 50 L 47 L 52 L Respiratory Rate 19 17 Blood Pressure 118/52 L 107/51 L 107/53 L Pulse Oximetry 99 98 99 06/22/21 14:10 06/22/21 14:20 06/22/21 14:21 Temperature Pulse Rate 50 L 46 L 49 L Respiratory Rate 18 14 16 Blood Pressure 119/58 L 118/53 L Pulse Oximetry 99 98 99 06/22/21 14:30 06/22/21 14:31 06/22/21 14:40 Temperature Pulse Rate 40 L 44 L 55 L Respiratory Rate 17 17 Blood Pressure 112/53 L 106/51 L Pulse Oximetry 99 98 98 06/22/21 14:50 06/22/21 14:51 06/22/21 15:00 Temperature Pulse Rate 63 60 59 L Respiratory Rate Blood Pressure 120/53 L 123/59 L Pulse Oximetry 99 99 99 06/22/21 15:10 06/22/21 15:20 06/22/21 15:30 Temperature Pulse Rate 58 L 54 L 52 L Respiratory Rate Blood Pressure 113/53 L 118/55 L 122/58 L Pulse Oximetry 99 97 98 06/22/21 15:40 06/22/21 15:43 Temperature Pulse Rate 50 L 62 Respiratory Rate Blood Pressure 102/49 L 106/51 L Pulse Oximetry 98 98 MDM - SOB/Dyspnea Lab Data Result diagrams: 06/22/21 13:45 06/22/21 13:45 Labs: Lab Results 06/22/21 06/22/21 06/22/21 Range/Units 13:37 13:45 13:45 WBC 7.7 (4.5-11.0) X10^3/uL RBC 4.18 L (4.5-5.9) X10^6/uL Hgb 13.8 (13.5-17.5) g/dL Hct 41.8 (41-53) % MCV 100.0 (80-100) fL MCH 33.0 (26-34) PG MCHC 33.0 (30-36) % RDW 13.6 (11.6-14.8) % Plt Count 210 (150-400) X10^3/uL Neut % (Auto) 75.2 H (50-75) % Lymph % (Auto) 12.4 L (25-40) % Nolan % (Auto) 9.8 (3-14) % Eos % (Auto) 2.0 (2-4) % Baso % (Auto) 0.6 (0-2) % Neut # (Auto) 5800 (5020-7815) /uL Lymph # (Auto) 1000 L (5391-1656) /uL Nolan # (Auto) 800 (0-900) /uL Eos # (Auto) 200 (0-450) /uL Baso # (Auto) 0 (0-100) /uL PT 24.3 H (10.1-12.7) SECONDS INR 2.1 H (0.9-1.3) APTT 39 H (26.4-36.2) SECONDS D-Dimer < 200 (<230) ng/mL Sodium 140 (137-145) mmol/L Potassium 4.0 (3.4-5.1) mmol/L Chloride 106 (98-107) mmol/L Carbon Dioxide 21 L (22-32) mmol/L BUN 25 H (9-20) mg/dL Creatinine 1.52 H (0.66-1.25) mg/dL Estimated GFR 46 L (>60) mL/min BUN/Creatinine Ratio 16.4 (6-22) Glucose 108 (80-110) mg/dL Lactate (0.7-2.1) mmol/L Calcium 9.1 (8.4-10.2) mg/dL Magnesium (1.6-2.3) mg/dL Total Bilirubin 0.8 (0.2-1.3) mg/dL AST 40 (17-59) IU/L ALT 38 (<50) IU/L Alkaline Phosphatase 79 (38-126) U/L Total Creatine Kinase 54 L (55-170) U/L CK-MB (CK-2) TNP CK-MB (CK-2) Rel Index TNP Troponin I 0.016 (0.01-0.034) ng/mL NT-Pro-B Natriuret Pep 1080 H (<450) pg/mL Total Protein 7.5 (6.3-8.2) g/dL Albumin 4.4 (3.5-5.0) g/dL Globulin 3.1 (1.7-4.1) g/dL Albumin/Globulin Ratio 1.4 (1.0-2.8) Lipase 50 (23-300) U/L SARS-CoV-2 (PCR) (Negative) 06/22/21 06/22/21 06/22/21 Range/Units 13:45 13:50 14:15 WBC (4.5-11.0) X10^3/uL RBC (4.5-5.9) X10^6/uL Hgb (13.5-17.5) g/dL Hct (41-53) % MCV (80-100) fL MCH (26-34) PG MCHC (30-36) % RDW (11.6-14.8) % Plt Count (150-400) X10^3/uL Neut % (Auto) (50-75) % Lymph % (Auto) (25-40) % Nolan % (Auto) (3-14) % Eos % (Auto) (2-4) % Baso % (Auto) (0-2) % Neut # (Auto) (9470-9900) /uL Lymph # (Auto) (6682-0282) /uL Nolan # (Auto) (0-900) /uL Eos # (Auto) (0-450) /uL Baso # (Auto) (0-100) /uL PT (10.1-12.7) SECONDS INR (0.9-1.3) APTT (26.4-36.2) SECONDS D-Dimer (<230) ng/mL Sodium (137-145) mmol/L Potassium (3.4-5.1) mmol/L Chloride (98-107) mmol/L Carbon Dioxide (22-32) mmol/L BUN (9-20) mg/dL Creatinine (0.66-1.25) mg/dL Estimated GFR (>60) mL/min BUN/Creatinine Ratio (6-22) Glucose (80-110) mg/dL Lactate 1.2 (0.7-2.1) mmol/L Calcium (8.4-10.2) mg/dL Magnesium 2.3 (1.6-2.3) mg/dL Total Bilirubin (0.2-1.3) mg/dL AST (17-59) IU/L ALT (<50) IU/L Alkaline Phosphatase (38-126) U/L Total Creatine Kinase (55-170) U/L CK-MB (CK-2) CK-MB (CK-2) Rel Index Troponin I (0.01-0.034) ng/mL NT-Pro-B Natriuret Pep (<450) pg/mL Total Protein (6.3-8.2) g/dL Albumin (3.5-5.0) g/dL Globulin (1.7-4.1) g/dL Albumin/Globulin Ratio (1.0-2.8) Lipase (23-300) U/L SARS-CoV-2 (PCR) Negative (Negative) ECG Data Interpretation: Atrial fibrillation rate 37 previous EKG with right bundle-branch block noted MDM Narrative Medical decision making narrative: Patient has had ongoing weakness some shortness of breath with exertion ongoing for number of weeks. He overall is getting weaker without focal deficits. He is found to be quite bradycardic in the high 30s and low 40s and in atrial fibrillation rhythm. He is also noted to be on Coreg but a low dose. His head CT and other workup negative. No sign of infection at this time. is given 1 dose of atropine which she response to nicely and remains in AFib however it does wear off. [address] Yan Cardiology who agrees that patient needs observation and holding of Coreg. Patient remains stable. He does have mild elevation of BNP at 1000 but no evidence of acute congestive heart failure. His lungs are clear no peripheral edema or hypoxia. Discharge Plan Departure Patient Disposition: Admitted as Observation Clinical Impression: Bradycardia Admit Date/Time: 06/22/21 15:47 Admit Provider: Esme Baig
--- NOTE | 2021-06-22 13:48 | DI.CT.S_ITS ---
PROCEDURE: CT HEAD/BRAIN WO CON INDICATIONS: weakness on eliquis TECHNIQUE: Noncontrast 4.5 mm thick angled axial sections acquired from the foramen magnum to the vertex, with coronal and sagittal reformats. For radiation dose reduction, the following was used: automated exposure control, adjustment of mA and/or kV according to patient size. COMPARISON: [facility], MR, STROKE PROTOCOL, 11/15/2012, 12:19. [facility], CT, HEAD WITHOUT CONTRAST, 10/09/2012, 11:31. FINDINGS: Image quality: Excellent. CSF spaces: Basal cisterns are patent. No extra-axial fluid collections. Ventricles are normal in size and shape. Brain: No midline shift. No intracranial masses or hemorrhage. No area of hypodensity in a large vascular distribution to suggest acute infarction. Periventricular hypodensity consistent with chronic microvascular ischemic change. Age-related parenchymal loss. Skull and face: Calvarium and visualized facial bones are intact, without suspicious lesions. Sinuses: Left maxillary mucosal thickening. Mastoids are clear. IMPRESSION: No acute intracranial abnormality. Chronic microvascular ischemic disease. Dictated by: Mak Funk M.D. on 06/22/2021 at 14:13 Approved by: Mak Funk M.D. on 06/22/2021 at 14:16
[2021-06-22 13:55] LABS: Add Manual Diff / Slide Review NO; Basophils Absolute Auto 0 /uL (0-100); Basophils Percent Auto 0.6 % (0-2); Eosinophils Absolute Auto 200 /uL (0-450); Hematocrit 41.8 % (41-53); Hemoglobin 13.8 g/dL (13.5-17.5); Lymphocytes Absolute Auto 1000 /uL (1100-4500); Lymphocytes Percent Auto 12.4 % (25-40); Monocytes Absolute Auto 800 /uL (0-900); Monocytes Percent Auto 9.8 % (3-14); Neutrophils Absolute Auto 5800 /uL (1500-7000); Neutrophils Percent Auto 75.2 % (50-75); Platelet Count 210 X10^3/uL (150-400); Red Blood Cell Count 4.18 X10^6/uL (4.5-5.9); Red Cell Distribution Width 13.6 % (11.6-14.8); White Blood Cell Count 7.7 X10^3/uL (4.5-11.0)
[2021-06-22 13:57] LABS: INR 2.1 (0.9-1.3); Prothrombin Time 24.3 SECONDS (10.1-12.7)
[2021-06-22 14:00] LABS: PTT Partial Thromboplastin Tim 39 SECONDS (26.4-36.2)
[2021-06-22 14:07] LABS: D Dimer < 200 ng/mL (<230)
[2021-06-22 14:09] LABS: Alanine Aminotransferase 38 IU/L (<50); Albumin 4.4 g/dL (3.5-5.0); Albumin Globulin Ratio 1.4 (1.0-2.8); Alkaline Phosphatase 79 U/L (38-126); Aspartate Aminotransferase 40 IU/L (17-59); BUN Creatinine Ratio 16.4 (6-22); Bilirubin Total 0.8 mg/dL (0.2-1.3); Blood Urea Nitrogen 25 mg/dL (9-20); Calcium 9.1 mg/dL (8.4-10.2); Carbon Dioxide 21 mmol/L (22-32); Chloride 106 mmol/L (98-107); Creatine Kinase 54 U/L (55-170); Estimated Glomerular Filt Rate 46 mL/min (>60); Globulin 3.1 g/dL (1.7-4.1); Glucose 108 mg/dL (80-110); HEMOLYSIS < 15 (0-50); Lipase 50 U/L (23-300); Sodium 140 mmol/L (137-145); Total Protein 7.5 g/dL (6.3-8.2)
[2021-06-22] MEDS: SODIUM CHLORIDE 0.9% 1,000 ML 150 ML IV (14:18)
[2021-06-22 14:19] LABS: NT-proBNP (BNP-Adult 18+) 1080 pg/mL (<450); Troponin I 0.016 ng/mL (0.01-0.034)
[2021-06-22 14:22] LABS: COVID19 -Nasal RAPID Negative (Negative)
[2021-06-22] MEDS: ATROPINE 1 MG/10 ML SYRINGE 0.5 MG IV (14:38)
[2021-06-22 15:25] LABS: Lactate (Lactic Acid) 1.2 mmol/L (0.7-2.1)
[2021-06-22 15:26] LABS: Magnesium 2.3 mg/dL (1.6-2.3)
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
[2021-06-22] MEDS: buPROPion 75 MG TABLET PO (20:26)
[2021-06-22] MEDS: lamoTRIgine 100 MG TABLET 200 MG PO (20:26)
[2021-06-22] MEDS: APIXABAN 5 MG TABLET PO (20:26)
[2021-06-23 03:00] VITALS: BP 117/50; PULSE 64; RESP 14; TEMP 36.1; O2SAT 100
[2021-06-23 05:34] LABS: BUN Creatinine Ratio 17.6 (6-22); Blood Urea Nitrogen 21 mg/dL (9-20); Calcium 9.1 mg/dL (8.4-10.2); Carbon Dioxide 20 mmol/L (22-32); Chloride 110 mmol/L (98-107); Estimated Glomerular Filt Rate > 60 mL/min (>60); Glucose 84 mg/dL (80-110); HEMOLYSIS < 15 (0-50); Magnesium 2.2 mg/dL (1.6-2.3); Potassium 4.1 mmol/L (3.4-5.1); Sodium 142 mmol/L (137-145)
[2021-06-23 08:55] VITALS: BP 121/53; PULSE 63; RESP 16; TEMP 36.5; O2SAT 98
[2021-06-23] MEDS: FUROSEMIDE 40 MG TABLET PO (09:42)
[2021-06-23] MEDS: APIXABAN 5 MG TABLET PO (09:42)
[2021-06-23] MEDS: ASPIRIN EC 81 MG TABLET PO (09:42)
[2021-06-23] MEDS: buPROPion 75 MG TABLET PO (09:42)
[2021-06-23] MEDS: lamoTRIgine 100 MG TABLET 200 MG PO (09:42)
[2021-06-23] MEDS: ACETAMINOPHEN 325 MG TABLET 650 MG PO (10:39)
--- NOTE | 2021-06-23 11:51 | DI.ECHO.S_ITS ---
[facility] +---------+ : : [address] : : : : [id number] : : : : Phone: [phone]+ Echocardiogram Report + + :Name: AAKASH DARBY Study Date: 06/23/2021 Height: 67 in : :[facility] ReadingLocation: Weight: 155 lb : : Gender: Male BSA: 1.8 m2 : :: 1940 Age: 81 yrs BP: 114/48 mmHg: :Reason For Study: SYMPTOMATIC BRADYCARDIA, POSSIBLE SICK SINUS : :SYNDROM : :Ordering Physician: ANASTACIO ALONSO : : Performed By: Thalia Watts : :Referring: ANASTACIO ALONSO MD : + + Interpretation Summary Afib with variable rate. HR was 45-61 bpm during the study. Mildly dilated LV size and normal wall thickness. There is basal inferior akinesis; there is basal inferoseptal, mid-inferoseptal, mid-inferior and distal inferior hypokinesis. Otheriwse normal wall motion. Severe LA enlargement; borderline RA enlargement. No significant valvular abnormalities. Compared to prior study 07/24/2016 LV is less dynamic. EF is down from 45-50%. to 30-35%. LV is more dilated. Afib is new. EPSS is up from 1.1 to 1.9 cm consistent with worsening cardiomyopathy. Procedure: A two-dimensional transthoracic echocardiogram with color flow and Doppler was performed. The study quality was technically adequate. Comparison is made with the echocardiogram of 07/24/2016. The patient was in atrial fibrillation with heart rates between 48-66 bpm during the exam. Left Ventricle: The left ventricle is borderline dilated. The estimated left ventricular end diastolic volume is 137 ml. There is normal left ventricular wall thickness. The ejection fraction is estimated to be 30-35%. Right Ventricle: The right ventricle is mildly dilated. Right ventricular systolic function is at the lower limits of normal. Atria: The left atrium is severely dilated. The right atrium is borderline dilated. There is no Doppler evidence for an interatrial shunt. Mitral Valve: The mitral valve leaflets appear mildly thickened, but open well. There is mild to moderate mitral regurgitation. Aortic Valve: The aortic valve is trileaflet. The aortic valve opens well. There is no aortic valve stenosis. There is mild to moderate aortic regurgitation. Tricuspid Valve: The tricuspid valve is normal in structure and function. There is mild tricuspid regurgitation. The right ventricular systolic pressure is estimated to be at least 30 mmHg based on an estimated right atrial pressure of 3 mm Hg. Pulmonic Valve: The pulmonic valve leaflets are thin and pliable; valve motion is normal. There is a trace or physiologic amount of pulmonic regurgitation. Great Vessels: The aortic root is normal size. The dimensions of the ascending aorta are normal. The IVC is of normal diameter and collapses greater than 50% with a sniff. This suggests a low right atrial pressure of 3 mm Hg. Pericardium/ Pleura There is no pericardial effusion. There is no pleural effusion. MMode/2D Measurements & Calculations LVIDd: 6.0 cm LVOT diam: 2.0 cm LVIDs: 5.1 cm Ao root diam: 3.1 cm FS: 16.3 % asc Aorta Diam: 3.4 cm EPSS: 1.9 cm Ao Arch Diam (Prox Trans): 2.8 cm IVSd: 0.73 cm LVPWd: 1.0 cm LV zamarripa. diameter/BSA (cm/m^2): 3.3 LV sys. diameter/BSA (cm/m^2): 2.8 LA A2 area: 26.8 cm2 RA long axis: 5.8 cm LA A4 area: 23.0 cm2 RA area: 20.2 cm2 LA length (vol): 5.8 cm RA vol: 59.9 ml LA vol: 90.5 ml RA : 33.0 ml/m2 LA vol index: 49.9 ml/m2 IVC diam: 1.4 cm RVD1 (basal): 4.1 cm RVD2 (mid): 3.8 cm TAPSE: 1.6 cm Doppler Measurements & Calculations Ao V2 max: 142.7 cm/sec LVOT Max Andrés: 68.2 cm/sec Ao V2 mean: 103.3 cm/sec LV V1 max P.9 mmHg Ao max P.1 mmHg LV V1 VTI: 13.2 cm Ao mean P.7 mmHg ОЛЬГА(I,D): 1.3 cm2 Ao V2 VTI: 31.9 cm ОЛЬГА(V,D): 1.5 cm2 sev ratio: 0.41 ОЛЬГА indexed to BSA (cm^2/m^2): 0.73 AI P1/2t: 750.4 msec AI dec slope: 136.8 cm/sec2 MV E max andrés: 87.1 cm/sec TR max andrés: 261.4 cm/sec MV A max andrés: 2.2 cm/sec TR max P.3 mmHg MV E/A: 39.2 PA V2 max: 63.7 cm/sec Med Peak E' Andrés: 3.4 cm/sec PA V2 mean: 41.0 cm/sec E/E' med: 25.5 PA mean P.78 mmHg Lat Peak E' Andrés: 8.1 cm/sec PA pr(Accel): 44.7 mmHg E/E' lat: 10.7 E/e' average: 18.1 MV dec time: 0.20 sec SV(LVOT): 41.9 ml Electronically signed by: Gladis Vazquez M.D. on Reading Physician:06/23/2021 04:36 PM
[2021-06-23 12:40] VITALS: BP 119/54; PULSE 55; RESP 16; TEMP 36.4; O2SAT 99
--- NOTE | 2021-06-23 13:25 | CM.DANOTE ---
DCP: Case received, EMR reviewed and met with patient. Introduced self and role. Was able to obtain information regarding patient's baseline activity status at home prior to hospitalization. DCP assessment completed with information currently available. Patient is an 81 year old male who admitted yesterday afternoon to the care of the hospitalist team. PCP: Dr. Huber. Payer: confirmed: Medicare/[facility]. Patient came to the hospital via private vehicle secondary to having increased shortness of breath. Patient has history of atrial fibrillation, and is on Eliquis and Coreg. He presented with increased weakness. His heart rate was noted to be in the 30s. Patient had been given a dose of Atropine in the ER. Dr. Baig had discussed patient during team rounds. He had taken patient off some of his medications to see if his heart rate wound increase, but still bradycardic. He indicated that he would contact cardiology. He then later indicated that patient would need to be transferred out for a pacemaker. He was going to start with [facility]. Met with patient in his room. He was sitting up in his chair, marlyn. Confirmed that he resides here in [place] with his spouse, Kacy. At his baseline, he is independent and drives. Patient is aware that he will need a pacemaker, he stated, he heard [facility] is full, hospitalist may be looking for an alternate hospital. P: DCP to continue to follow to see when patient will be transferred, when higher level hospital is available. Delia Chatman RN/Sheep Shearer Discharge Planning/Care Management CM Discharge Assessment Start: 06/23/21 12:07 Freq: Status: Active Protocol: Document 06/23/21 13:23 (Rec: 06/23/21 13:25 [id number]) Discharge Planning Assessment Advance Directives? No History Provided By Patient,Medical Record Prior Living Arrangements House Household Members spouse Type of transporation used prior to Drives own vehicle admit Independent with ADL's Yes Is patient alert and oriented? Yes Comment Hospitalist is working on getting patient to higher level hospital for a pacemaker , [facility] is full, attempting other hospitals. Discharge Plan Transfer to Higher Level of Care Transportation Arrangement Ambulance, ALS Referrals Initiated None needed Review Status In Process Next Review Type Continued Stay Review
--- NOTE | 2021-06-23 14:03 | OT.IPNOTE ---
Pt getting echo, therefore not able to do OT eval. To check on the pt tomorrow.
--- NOTE | 2021-06-23 14:09 | PM.PN.1 ---
Subjective Subjective Interval history: The patient endorses episodes of lightheadedness overnight. RN reports overnight RN noted episodes of bradycardia into the 30's again. He denies any other acute complaints. Exam Vital Signs (past 8 hours): - 06/23/21 08:55 06/23/21 12:40 Temperature 97.7 F 97.5 F L Pulse Rate 63 55 L Respiratory Rate 16 16 Blood Pressure 121/53 L 119/54 L Pulse Oximetry 98 99 Oxygen Delivery Method Room Air Oxygen Flow Rate 0 Narrative Exam Narrative: Const Other: Patient is laying comfortably upon my entering the room, in no apparent acute distress Eyes Other: No scleral icterus appreciated Resp Other: Lungs clear to auscultation bilaterally Cardio Other: Bradycardic rate with irregularly irregular rhythm, S1 and S2 heart sounds normal, no extra heart sounds or murmurs appreciated GI Other: Soft, non-distended, non-tender, bowel sounds present Skin Other: No grossly abnormal skin lesions noted Extrem Other: Palpable doralis pedis pulses bilaterally Objective Labs Result Diagrams: 06/22/21 13:45 06/23/21 04:50 Labs: Laboratory Results - last 24 hr 06/22/21 06/22/21 06/22/21 13:45 13:45 13:50 Sodium 140 Potassium 4.0 Chloride 106 Carbon Dioxide 21 L BUN 25 H Creatinine 1.52 H Estimated GFR 46 L BUN/Creatinine Ratio 16.4 Glucose 108 Lactate Calcium 9.1 Magnesium 2.3 Total Bilirubin 0.8 AST 40 ALT 38 Alkaline Phosphatase 79 Total Creatine Kinase 54 L CK-MB (CK-2) TNP CK-MB (CK-2) Rel Index TNP Troponin I 0.016 NT-Pro-B Natriuret Pep 1080 H Total Protein 7.5 Albumin 4.4 Globulin 3.1 Albumin/Globulin Ratio 1.4 Lipase 50 TSH SARS-CoV-2 (PCR) Negative 06/22/21 06/23/21 06/23/21 14:15 04:50 04:50 Sodium 142 Potassium 4.1 Chloride 110 H Carbon Dioxide 20 L BUN 21 H Creatinine 1.19 Estimated GFR > 60 BUN/Creatinine Ratio 17.6 Glucose 84 Lactate 1.2 Calcium 9.1 Magnesium 2.2 Total Bilirubin AST ALT Alkaline Phosphatase Total Creatine Kinase CK-MB (CK-2) CK-MB (CK-2) Rel Index Troponin I NT-Pro-B Natriuret Pep Total Protein Albumin Globulin Albumin/Globulin Ratio Lipase TSH 2.00 SARS-CoV-2 (PCR) PFSH Surgical History (Updated 07/10/17 @ 05:46 by Conversion Provider) Status post appendectomy Status post coronary artery bypass graft Family History (Updated 12/22/14 @ 00:00 by Conversion Provider) Sister Age: 79 COPD (chronic obstructive pulmonary disease) Social History household members: spouse Smoking Status: Never smoker alcohol intake: never Assessment & Plan Assessment & Plan narrative: Assessment: 1. Bradycardia, likely medication-related, ongoing 2. JON, likely pre-renal, resolved 3. Atrial fibrillation on Eliquis 4. Hypertension 5. Hx of quintuple CABG, remote 6. Essential tremor 7. Bipolar disorder Plan: 1. Will hold home carvedilol indefinitely, along with any future negative chronotropic agents. Beta brendan is likely contributing to his tiredness, too. Telemetry on-board. Discussed continued episodes of symptomatic bradycardia with Dr. Canseco (on-call cardiology) and he recommends patient be transferred to [facility] for [facility] pacemaker [facility]. 2. Received IV fluids in ER, and will continue to encourage PO intake. 3. CHADSVASc 4 (HTN, age > 75, vasculopathy). Will continue home Eliquis 5 mg bid. If patient has episodes of nino-tachy, might have SSS. 4. Will continue home Lasix at half the dose. Will hold home losartan 12.5 mg daily and Aldactone 12.5 mg daily, for now, given relative normotension, along with JON. If patient is baseline normotensive, then these anti-BP agents might be contributing to his tiredness, too. 5. Will continue home aspirin 81 mg daily. Unclear as to why patient is not on home statin. 6. Will hold home primidone for now. 7. Will continue home bupropion 75 mg daily and Lamictal 200 mg bid. VTE prophylaxis: Beni, as above Time Spent With Patient Critical Care time: I spent a total of [] minutes of critical care time on this patient's care today; this time is exclusive of procedural time. Quality VTE Deep Vein Thrombosis/Pulmonary Embolism Present on Admission: No
--- NOTE | 2021-06-23 14:51 | PC.NURSE ---
Addendum entered by Hermelindo Cuellar R.N. 06/23/21 15:22: Pt taken by S staff offunit at 1523. Pt stable and report was given to S RN. Original Note: Day Shift - I called [facility] to give report on Pt to the nurse who will be taking over care his name is Rodriguez. Waiting for BLS to come and take the Pt.
--- NOTE | 2021-06-23 15:01 | PM.DS.1 ---
History of Present Illness History of Present Illness Chief complaint: SOB dyspnea Narrative: 81yo male with a history of remote quintuple CABG (2003), hypertension, atrial fibrillation on Coreg and Eliquis, and essential tremore that presents with feeling tired. The patient states this started about 2 weeks ago. He attributes this to a bout of bronchitis. He does endorse a productive cough, of yellow-green sputum. He denies any copious sputum production. He reports taking OTC cough suppresant medications with mild relief. He denies any recent sick contacts or travel. He reports being immunized against COVID. He denies any hx of catching COVID during the pandemic. The patient endorses taking all his listed medications, including Eliquis for a fib anticoagulation. He denies that carvedilol is a new medications. He denies having a hx of bradycardia in the past. He denies any new medications. He denies feelings of depression, hoplessness, guilt, lack of concentration, or anhedonia. He reports his bipolar disorder is stable on current meds. He states primidone was prescribed for essential tremor, and denies that this is a new med. The patient denies ever smoking tobacco, using illicit drugs, or abusing EtOH. Other than CABG, the patient has also undergone appendectomy. No other surgical history. He denies any known drug allergies. He lives with his nearby. 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 Discharge Providers Provider Date of admission: 06/23/21 14:32 Discharge Date: 06/23/21 Primary care physician: Shane Huber MD Consults: 06/22/21 17:20 Consult to Dietitian, Adult Routine Comment: Reason For Exam: Significant weight loss 06/23/21 09:14 Consult to Occupational Therapy Evaluate & Treat Comment: Physician Instructions: Evaluate and treat Consult to Physical Therapy Evaluate & Treat Comment: Physician Instructions: Evaluate and Treat Discharge provider: Esme Baig MD Summary Hospital Course Discharge Diagnosis: Assessment: 1. Bradycardia, symptomatic, possible SSS 2. JON, likely pre-renal, resolved 3. Atrial fibrillation on Eliquis 4. Hypertension 5. Hx of quintuple CABG, remote 6. Essential tremor 7. Bipolar disorder Plan: 1. Will hold home carvedilol indefinitely, along with any future negative chronotropic agents. Discussed continued episodes of symptomatic bradycardia with Dr. Canseco (on-call cardiology) and he recommends patient be transferred to [facility] for potential pacemaker placement. 2. Received IV fluids in ER, and will continue to encourage PO intake. 3. CHADSVASc 4 (HTN, age > 75, vasculopathy). Will continue home Eliquis 5 mg bid. 4. Will continue home Lasix at half the dose. Will hold home losartan 12.5 mg daily and Aldactone 12.5 mg daily, for now, given relative normotension, along with JON. If patient is baseline normotensive, then these anti-BP meds are likely not needed outpatient, too. 5. Will continue home aspirin 81 mg daily. Unclear as to why patient is not on home statin. 6. Will hold home primidone for now. 7. Will continue home bupropion 75 mg daily and Lamictal 200 mg bid. Exam Vital Signs (past 8 hours): - 06/23/21 08:55 06/23/21 12:40 Temperature 97.7 F 97.5 F L Pulse Rate 63 55 L Respiratory Rate 16 16 Blood Pressure 121/53 L 119/54 L Pulse Oximetry 98 99 Oxygen Delivery Method Room Air Oxygen Flow Rate 0 Objective Labs Result Diagrams: 06/22/21 13:45 06/23/21 04:50 Labs: Laboratory Results - last 24 hr 06/22/21 06/22/21 06/23/21 13:45 14:15 04:50 Sodium 142 Potassium 4.1 Chloride 110 H Carbon Dioxide 20 L BUN 21 H Creatinine 1.19 Estimated GFR > 60 BUN/Creatinine Ratio 17.6 Glucose 84 Lactate 1.2 Calcium 9.1 Magnesium 2.3 2.2 TSH 06/23/21 04:50 Sodium Potassium Chloride Carbon Dioxide BUN Creatinine Estimated GFR BUN/Creatinine Ratio Glucose Lactate Calcium Magnesium TSH 2.00 [facility] Surgical History (Updated 07/10/17 @ 05:46 by Conversion Provider) Status post appendectomy Status post coronary artery bypass graft Family History (Updated 12/22/14 @ 00:00 by Conversion Provider) Sister Age: 79 COPD (chronic obstructive pulmonary disease) Social History household members: spouse Smoking Status: Never smoker alcohol intake: never Discharge Assessment & Plan Assessment and Plan Assessment: Assessment: 1. Bradycardia, symptomatic, possible SSS 2. JON, likely pre-renal, resolved 3. Atrial fibrillation on Eliquis 4. Hypertension 5. Hx of quintuple CABG, remote 6. Essential tremor 7. Bipolar disorder Plan: 1. Will hold home carvedilol indefinitely, along with any future negative chronotropic agents. Discussed continued episodes of symptomatic bradycardia with Dr. Canseco (on-call cardiology) and he recommends patient be transferred to [facility] for potential pacemaker placement. 2. Received IV fluids in ER, and will continue to encourage PO intake. 3. CHADSVASc 4 (HTN, age > 75, vasculopathy). Will continue home Eliquis 5 mg bid. 4. Will continue home Lasix at half the dose. Will hold home losartan 12.5 mg daily and Aldactone 12.5 mg daily, for now, given relative normotension, along with JON. If patient is baseline normotensive, then these anti-BP meds are likely not needed outpatient, too. 5. Will continue home aspirin 81 mg daily. Unclear as to why patient is not on home statin. 6. Will hold home primidone for now. 7. Will continue home bupropion 75 mg daily and Lamictal 200 mg bid. Discharge Plan Discharge Plan Other facility: [facility] Discharge orders & Medications Discharge Orders: Discharge (Order); Ordered 06/23/21 Ordered By: Esme Baig Prescriptions: No Action aspirin 81 MG tablet,delayed release (DR/EC) 81 mg PO QDAY Qty: 0 0RF omeprazole 20 MG capsule,delayed release(DR/EC) 20 mg PO DAILY Qty: 0 0RF furosemide 40 MG tablet 40 mg PO Q DAY Qty: 30 0RF carvedilol [Coreg] 6.25 MG tablet 6.25 mg PO 1-2XD Qty: 0 0RF losartan [Cozaar] 25 MG tablet 12.5 mg PO QDAY Qty: 0 0RF spironolactone [Aldactone] 25 MG tablet 12.5 mg PO QDAY Qty: 0 0RF [Vitamin B12] 15 ml PO QDAY Qty: 0 0RF primidone [Mysoline] 50 MG tablet 1 - 5 tab PO QDAY Qty: 0 0RF nystatin 30 GM cream 1 grey Topical BID Qty: 30 0RF lamotrigine [Lamictal] 200 MG tablet 200 mg PO BID Qty: 180 3RF bupropion HCl 75 mg tablet 75 mg PO BID Qty: 60 2RF Rx Instructions: Will need to establish care or be seen by PCP prior to future fills. 3 months given. 04/10/18 Disabled Parking Permit See Protocol packet DAILY 0RF Protocol: Age Greater than 75 Protocol Text: Age less than 75 years, to be administred with initial in subcutaneous dose Follow up/Referrals: Shane Huber MD [Primary Care Provider] - Discharge Data Primary Care Provider: Shane Huber V Quality VTE Deep Vein Thrombosis/Pulmonary Embolism Present on Admission: No
--- NOTE | 2021-06-23 15:01 | PT-IP ANOTE ---
Received PT order and reviewed the chart. On attempt to meet with pt for evaluation, pt is in process of transfer to [facility].
== END 2021-06-23 15:23 | disposition short-term general hospital (02) | DRG 309 ==
LOC: ED 13:19 → AC 15:48
PROVIDERS: Admitting Provider Student in an Organized Health Care Education/Training Program; Emergency Provider Emergency Medicine; Family Provider Psychiatry & Neurology Neurology; PCP Internal Medicine; Referring Provider Emergency Medicine; Visit Provider Student in an Organized Health Care Education/Training Program
DX: I49.5 Sick sinus syndrome (principal); N17.9 Acute kidney failure, unspecified; I48.91 Unspecified atrial fibrillation; F31.9 Bipolar disorder, unspecified; I10 Essential (primary) hypertension; R53.1 Weakness; Z79.01 Long term (current) use of anticoagulants; Z95.1 Presence of aortocoronary bypass graft; Z20.822 Contact with and (suspected) exposure to COVID-19
CPT/HCPCS: 36415; 70450; 71045; 80048; 80053; 82550; 83605; 83690; 83735; 83880; 84443; 84484; 85025; 85379; 85610; 85730; 87635; 93005; 93010; 93306; 96374; 99284; 99285; C9803; G0378; J0461

== ENCOUNTER 2021-11-07 13:56 | Observation (INO) | payer MEDICARE, OTHER, SELFPAY ==
[2021-06-22 16:42] VITALS: BMI 24.3
[2021-11-07] VITALS (13 sets, daily range): BP systolic 105–142; BP diastolic 56–65; PULSE 68–72; RESP 16–21; TEMP 35.8–36.6; O2SAT 95–100; BMI 24.9
--- NOTE | 2021-11-07 | DI.ECHO.S_ITS ---
[facility]---------+ [facility] +---------+ : : [address] : : : : [id number] : : : : Phone: [phone] Echocardiogram Report + + :Name: AAKASH DARBY Study Date: 11/08/2021 Height: 67 in : :[facility] ReadingLocation: Weight: 159 lb : : Gender: Male BSA: 1.8 m2 : :: 1940 Age: 81 yrs BP: 122/68 mmHg: :Reason For Study: ASSESS LV FUNCTION : :Ordering Physician: RETA WESLEY : :Surinder Rizo Performed By: Thalia Watts : :Referring: RETA WESLEY D.O. : + + Interpretation Summary Left ventricular ejection fraction is estimated to be 25 +/- 5%. Mildly dilated LV size and normal wall thickness. There is basal inferior, mid-inferior, mid-inferoseptal akinesis; there is basal inferolateral, mid- inferolateral, distal inferior hypokinesis. Best mostion is demonstrated by anterior segments. There is a pacemaker lead in the right ventricle. There is moderate tricuspid regurgitation. The right ventricular systolic pressure is estimated to be at least 32 mmHg based on an estimated right atrial pressure of 3 mm Hg. Procedure: A two-dimensional transthoracic echocardiogram with color flow and Doppler was performed in limited views only to assess LV FUNCTION. The study quality was technically difficult. Comparison is made with the echocardiogram of 06/23/2021. The patient has a paced rhythm. The heart rate ranged between 70-74 bpm during the study. Left Ventricle: The left ventricle is borderline dilated. There is normal left ventricular wall thickness. Left ventricular ejection fraction is estimated to be 25 +/- 5%. Mildly dilated LV size and normal wall thickness. There is basal inferior, mid-inferior, mid-inferoseptal akinesis; there is basal inferolateral, mid-inferolateral, distal inferior hypokinesis. Best mostion is demonstrated by anterior segments. Compared to the prior exam, the left ventricular wall motion has not changed. Right Ventricle: There is a pacemaker lead in the right ventricle. Right ventricular systolic function is at the lower limits of normal. Atria: The left atrium is severely dilated. The right atrium is severely dilated. Tricuspid Valve: There is moderate tricuspid regurgitation. The right ventricular systolic pressure is estimated to be at least 32 mmHg based on an estimated right atrial pressure of 3 mm Hg. Great Vessels: The IVC is of normal diameter and collapses greater than 50% with a sniff. This suggests a low right atrial pressure of 3 mm Hg. Pericardium/ Pleura There is no pericardial effusion. There is no pleural effusion. MMode/2D Measurements & Calculations LVIDd: 5.9 cm LA A2 area: 29.7 cm2 LVIDs: 5.0 cm LA A4 area: 26.6 cm2 FS: 14.0 % LA length (vol): 6.7 cm EPSS: 1.9 cm LA vol: 99.9 ml IVSd: 0.98 cm LA vol index: 54.5 ml/m2 LVPWd: 0.66 cm LV zamarripa. diameter/BSA (cm/m^2): 3.2 LV sys. diameter/BSA (cm/m^2): 2.8 RA long axis: 5.9 cm TAPSE: 1.7 cm RA area: 26.7 cm2 RA vol: 102.9 ml RA : 56.1 ml/m2 IVC diam: 1.7 cm Doppler Measurements & Calculations TR max agustin: 271.2 cm/sec TR max P.4 mmHg Reading Physician:12:02 PM
--- NOTE | 2021-11-07 14:17 | DI.RAD.S_ITS ---
PROCEDURE: XR CHEST 1V INDICATIONS: Possible stroke TECHNIQUE: One view of the chest was acquired. COMPARISON: [facility], , XR CHEST 1V, 06/22/2021, 13:23. [facility], , CHEST 1 VIEW, 07/13/2016, 7:29. FINDINGS: Surgical changes and devices: Left chest wall pacer is seen with intact leads. The patient is status post median sternotomy and CABG. Lungs and pleura: Lungs are clear. No pleural effusions or pneumothorax. Mediastinum: Mediastinal contours appear normal. Heart size is normal. Bones and chest wall: Both shoulders and acromioclavicular joints have degenerative changes. No suspicious bony lesions. Overlying soft tissues appear unremarkable. IMPRESSION: No acute cardiopulmonary abnormality. Dictated by: Arturo Morris M.D. on 11/07/2021 at 14:40 Approved by: Arturo Morris M.D. on 11/07/2021 at 14:40
--- NOTE | 2021-11-07 14:17 | ED.DIZZY ---
HPI - Dizziness General Chief Complaint: Dizziness Stated Complaint: Light headed, double vision Time Seen by Provider: 11/07/21 14:12 Related Data Home Medications Medication Instructions Recorded Confirmed apixaban 5 mg tablet (Eliquis) 5 mg PO BID 11/07/21 11/10/21 atorvastatin 20 mg tablet 20 mg PO DAILY 11/07/21 11/10/21 bupropion HCl 75 mg tablet 75 mg PO BID 11/07/21 11/10/21 topiramate 200 mg tablet 200 mg PO BID 11/07/21 11/10/21 Previous Rx's Medication Instructions Recorded lamotrigine 200 mg tablet 200 mg PO BID #180 tabs 05/31/17 (Lamictal) losartan 25 mg tablet 12.5 mg PO DAILY 30 days #15 tabs 11/12/21 metoprolol succinate 25 mg 12.5 mg PO DAILY 30 days #15 tabs 11/12/21 tablet,extended release 24 hr Allergies Allergy/AdvReac Type Severity Reaction Status Date / Time No Known Drug Allergies Allergy Verified 11/10/21 10:53 Patient History Medical History Atrial fibrillation with controlled ventricular rate Bipolar disorder Cardiomyopathy CHF (congestive heart failure) Coronary artery disease due to lipid rich plaque Essential hypertension Essential tremor GERD (gastroesophageal reflux disease) Hyperlipidemia Obstructive sleep apnea Pacemaker Surgical History Hx of CABG Status post appendectomy Status post coronary artery bypass graft Family History Sister Age: 79 COPD (chronic obstructive pulmonary disease) Spouse Advanced dementia Social History household members: spouse Smoking Status: Former smoker alcohol intake: current Smoking Status: Never smoker Substance Use Type: does not use Exam Initial Vital Signs Initial Vital Signs: Vital Signs Temperature 98 F 11/07/21 14:18 Pulse Rate 69 11/07/21 14:18 Respiratory Rate 16 11/07/21 14:18 Blood Pressure 124/59 L 11/07/21 14:18 Pulse Oximetry 99 11/07/21 14:18 Oxygen Delivery Method 11/07/21 14:18 Course Orders Ordered: Discontinued Medications Acetaminophen (Acetaminophen 325 Mg Tablet) 650 mg PO Q6HR PRN PRN Reason: Fever/Mild Pain (1-3) Apixaban (Apixaban 5 Mg Tablet) 5 mg PO BID [facility] Last Admin: 11/08/21 09:00 Dose: 5 mg Documented By: LDV Aspirin (Aspirin 325 Mg Tablet) 325 mg PO NOW ONE Stop: 11/07/21 16:33 Last Admin: 11/07/21 17:27 Dose: 325 mg Documented By: RLS Aspirin (Aspirin Ec 81 Mg Tablet) 81 mg PO DAILY [facility] Last Admin: 11/08/21 09:03 Dose: Not Given Documented By: LDV Atorvastatin Calcium (Atorvastatin 20 Mg Tablet) 20 mg PO DAILY [facility] Last Admin: 11/08/21 09:00 Dose: 20 mg Documented By: LDV Bupropion HCl (Bupropion 75 Mg Tablet) 75 mg PO BID [facility] Last Admin: 11/08/21 09:00 Dose: 75 mg Documented By: Admin: 11/07/21 22:05 Dose: 75 mg Documented By: SH Carvedilol (Carvedilol 3.125 Mg Tablet) 6.25 mg PO DAILY [facility] Last Admin: 11/08/21 09:00 Dose: 6.25 mg Documented By: LDV Heparin Sodium (Porcine) (Heparin 5,000 Unit/Ml Vial) 5,000 unit SUBCUT BID [facility] Last Admin: 11/07/21 20:14 Dose: 5,000 unit Documented By: KEKE Sodium Chloride (Normal Saline 0.9%) 500 mls @ 1,000 mls/hr IV BOLUS ONE Stop: 11/07/21 14:47 Last Infusion: 11/07/21 16:00 Dose: 0 mls/hr Documented By: Admin: 11/07/21 15:30 Dose: 1,000 mls/hr Documented By: MLM Sodium Chloride (Normal Saline 0.9%) 1,000 mls @ 60 mls/hr IV CONT [facility] Stop: 11/08/21 05:59 Last Admin: 11/08/21 05:29 Dose: 60 mls/hr Documented By: Infusion: 11/08/21 05:29 Dose: 60 mls/hr Documented By: Infusion: 11/08/21 01:30 Dose: 60 mls/hr Documented By: Admin: 11/07/21 18:54 Dose: 100 mls/hr Documented By: HCW Lamotrigine (Lamotrigine 100 Mg Tablet) 200 mg PO BID [facility] Last Admin: 11/08/21 09:00 Dose: 200 mg Documented By: Admin: 11/07/21 21:24 Dose: 200 mg Documented By: KEKE Losartan Potassium (Losartan 25 Mg Tablet) 25 mg PO DAILY [facility] Last Admin: 11/08/21 09:01 Dose: 25 mg Documented By: LDV Metoprolol Succinate (Metoprolol Er 25 Mg Tablet) 25 mg PO BID [facility] Non-Formulary Medication (Carvedilol [Coreg]) 6.25 mg PO DAILY [facility] Non-Formulary Medication (Omeprazole) 20 mg PO DAILY [facility] Pantoprazole Sodium (Pantoprazole Dr 20 Mg Tablet) 20 mg PO 0600 [facility] Last Admin: 11/08/21 05:29 Dose: 20 mg Documented By: KEKE Topiramate (Topiramate 100 Mg Tablet) 200 mg PO BID [facility] Last Admin: 11/08/21 09:01 Dose: 200 mg Documented By: Admin: 11/07/21 21:24 Dose: 200 mg Documented By: KEKE Vital Signs Vital signs: Vital Signs - 8 hr 11/07/21 14:18 11/07/21 15:27 11/07/21 15:28 Temperature 98 F Pulse Rate 69 69 69 Respiratory Rate 16 Blood Pressure 124/59 L Pulse Oximetry 99 98 99 Oxygen Delivery Method Room Air 11/07/21 15:28 11/07/21 15:30 11/07/21 15:30 Temperature Pulse Rate 69 Respiratory Rate 21 Blood Pressure 142/64 H 119/61 Pulse Oximetry 100 Oxygen Delivery Method MDM - Dizziness Lab Data Result diagrams: 11/08/21 05:25 11/08/21 05:25 Labs: Lab Results 11/07/21 11/07/21 11/07/21 Range/Units 14:15 14:15 15:00 WBC 4.4 L (4.5-11.0) X10^3/uL RBC 3.67 L (4.5-5.9) X10^6/uL Hgb 12.7 L (13.5-17.5) g/dL Hct 37.4 L (41-53) % MCV 101.7 H (80-100) fL MCH 34.4 H (26-34) PG MCHC 33.9 (30-36) % RDW 13.8 (11.6-14.8) % Plt Count 138 L (150-400) X10^3/uL Neut % (Auto) 65.5 (50-75) % Lymph % (Auto) 18.4 L (25-40) % Mccormick % (Auto) 12.9 (3-14) % Eos % (Auto) 2.6 (2-4) % Baso % (Auto) 0.6 (0-2) % Neut # (Auto) 2900 (0207-8937) /uL Lymph # (Auto) 800 L (4167-3144) /uL Mccormick # (Auto) 600 (0-900) /uL Eos # (Auto) 100 (0-450) /uL Baso # (Auto) 0 (0-100) /uL PT 19.9 H (10.1-12.7) SECONDS INR 1.7 H (0.9-1.3) APTT 20 L (26-36) SECONDS Sodium 138 (137-145) mmol/L Potassium 4.1 (3.4-5.1) mmol/L Chloride 106 (98-107) mmol/L Carbon Dioxide 22 (22-32) mmol/L BUN 25 H (9-20) mg/dL Creatinine 1.38 H (0.66-1.25) mg/dL Estimated GFR 51 L (>60) mL/min BUN/Creatinine Ratio 18.1 (6-22) Glucose 89 (80-110) mg/dL Hemoglobin A1c (4.0-6.0) % Calcium 8.9 (8.4-10.2) mg/dL Magnesium 2.2 (1.6-2.3) mg/dL Total Bilirubin 1.2 (0.2-1.3) mg/dL AST 44 (17-59) IU/L ALT 32 (<50) IU/L Alkaline Phosphatase 66 (38-126) U/L Total Creatine Kinase 200 H (55-170) U/L CK-MB (CK-2) 2.58 H (<2.37) ng/mL CK-MB (CK-2) Rel Index 1.3 L (1.5-5.0) % Troponin I < 0.012 (0.01-0.034) ng/mL Total Protein 7.8 (6.3-8.2) g/dL Albumin 4.6 (3.5-5.0) g/dL Globulin 3.2 (1.7-4.1) g/dL Albumin/Globulin Ratio 1.4 (1.0-2.8) Vitamin B12 (239-931) pg/mL Folate (2.76-20.0) ng/mL TSH (0.47-4.68) uIU/mL SARS-CoV-2 (PCR) (Negative) 11/07/21 11/07/21 11/07/21 Range/Units 15:00 15:00 15:00 WBC (4.5-11.0) X10^3/uL RBC (4.5-5.9) X10^6/uL Hgb (13.5-17.5) g/dL Hct (41-53) % MCV (80-100) fL MCH (26-34) PG MCHC (30-36) % RDW (11.6-14.8) % Plt Count (150-400) X10^3/uL Neut % (Auto) (50-75) % Lymph % (Auto) (25-40) % Mccormick % (Auto) (3-14) % Eos % (Auto) (2-4) % Baso % (Auto) (0-2) % Neut # (Auto) (6988-2235) /uL Lymph # (Auto) (6633-4257) /uL Mccormick # (Auto) (0-900) /uL Eos # (Auto) (0-450) /uL Baso # (Auto) (0-100) /uL PT (10.1-12.7) SECONDS INR (0.9-1.3) APTT (26-36) SECONDS Sodium (137-145) mmol/L Potassium (3.4-5.1) mmol/L Chloride (98-107) mmol/L Carbon Dioxide (22-32) mmol/L BUN (9-20) mg/dL Creatinine (0.66-1.25) mg/dL Estimated GFR (>60) mL/min BUN/Creatinine Ratio (6-22) Glucose (80-110) mg/dL Hemoglobin A1c 5.3 (4.0-6.0) % Calcium (8.4-10.2) mg/dL Magnesium (1.6-2.3) mg/dL Total Bilirubin (0.2-1.3) mg/dL AST (17-59) IU/L ALT (<50) IU/L Alkaline Phosphatase (38-126) U/L Total Creatine Kinase (55-170) U/L CK-MB (CK-2) (<2.37) ng/mL CK-MB (CK-2) Rel Index (1.5-5.0) % Troponin I (0.01-0.034) ng/mL Total Protein (6.3-8.2) g/dL Albumin (3.5-5.0) g/dL Globulin (1.7-4.1) g/dL Albumin/Globulin Ratio (1.0-2.8) Vitamin B12 > 1000 H (239-931) pg/mL Folate > 20.0 H (2.76-20.0) ng/mL TSH 0.68 (0.47-4.68) uIU/mL SARS-CoV-2 (PCR) (Negative) 11/07/21 Range/Units 15:54 WBC (4.5-11.0) X10^3/uL RBC (4.5-5.9) X10^6/uL Hgb (13.5-17.5) g/dL Hct (41-53) % MCV (80-100) fL MCH (26-34) PG MCHC (30-36) % RDW (11.6-14.8) % Plt Count (150-400) X10^3/uL Neut % (Auto) (50-75) % Lymph % (Auto) (25-40) % Mccormick % (Auto) (3-14) % Eos % (Auto) (2-4) % Baso % (Auto) (0-2) % Neut # (Auto) (3145-1992) /uL Lymph # (Auto) (0512-2961) /uL Mccormick # (Auto) (0-900) /uL Eos # (Auto) (0-450) /uL Baso # (Auto) (0-100) /uL PT (10.1-12.7) SECONDS INR (0.9-1.3) APTT (26-36) SECONDS Sodium (137-145) mmol/L Potassium (3.4-5.1) mmol/L Chloride (98-107) mmol/L Carbon Dioxide (22-32) mmol/L BUN (9-20) mg/dL Creatinine (0.66-1.25) mg/dL Estimated GFR (>60) mL/min BUN/Creatinine Ratio (6-22) Glucose (80-110) mg/dL Hemoglobin A1c (4.0-6.0) % Calcium (8.4-10.2) mg/dL Magnesium (1.6-2.3) mg/dL Total Bilirubin (0.2-1.3) mg/dL AST (17-59) IU/L ALT (<50) IU/L Alkaline Phosphatase (38-126) U/L Total Creatine Kinase (55-170) U/L CK-MB (CK-2) (<2.37) ng/mL CK-MB (CK-2) Rel Index (1.5-5.0) % Troponin I (0.01-0.034) ng/mL Total Protein (6.3-8.2) g/dL Albumin (3.5-5.0) g/dL Globulin (1.7-4.1) g/dL Albumin/Globulin Ratio (1.0-2.8) Vitamin B12 (239-931) pg/mL Folate (2.76-20.0) ng/mL TSH (0.47-4.68) uIU/mL SARS-CoV-2 (PCR) Negative (Negative) ECG Data Interpretation: ECG taken it 2:08 p.m. shows a paced rhythm at 72 beats per minute. No acute ST or T-wave changes seen. Discharge Plan Departure Patient Disposition: Admitted As Inpatient Clinical Impression: Dizziness, Weakness Admit Date/Time: 11/07/21 18:11 Admit Provider: Oscar Rosenthal
--- NOTE | 2021-11-07 14:18 | DI.CT.S_ITS ---
PROCEDURE: CT HEAD/BRAIN WO CON INDICATIONS: dizziness TECHNIQUE: Noncontrast 4.5 mm thick angled axial sections acquired from the foramen magnum to the vertex, with coronal and sagittal reformats. For radiation dose reduction, the following was used: automated exposure control, adjustment of mA and/or kV according to patient size. COMPARISON: [facility], CT, CT HEAD/BRAIN WO CON, 06/22/2021, 14:03. FINDINGS: Image quality: Excellent. CSF spaces: Basal cisterns are patent. No extra-axial fluid collections. The ventricles are symmetric in size and shape. Brain: No intracranial bleeds or masses. There is cerebral volume loss for age, with resultant ventricular and sulcal prominence. There are periventricular and deep white matter chronic small vessel ischemic changes. There is intracranial internal carotid artery atherosclerosis. Skull and face: Calvarium and visualized facial bones appear intact, without suspicious lesions. Sinuses: Visualized sinuses and mastoids are clear. IMPRESSION: 1. No acute intracranial abnormality. 2. Cerebral volume loss and small vessel ischemic changes. Dictated by: Arturo Morris M.D. on 11/07/2021 at 14:41 Approved by: Arturo Morris M.D. on 11/07/2021 at 14:42
[2021-11-07 14:39] LABS: INR 1.7 (0.9-1.3); Prothrombin Time 19.9 SECONDS (10.1-12.7)
[2021-11-07 14:41] LABS: PTT Partial Thromboplastin Tim 20 SECONDS (26-36)
[2021-11-07 14:44] LABS: Alanine Aminotransferase 32 IU/L (<50); Albumin 4.6 g/dL (3.5-5.0); Albumin Globulin Ratio 1.4 (1.0-2.8); Alkaline Phosphatase 66 U/L (38-126); Aspartate Aminotransferase 44 IU/L (17-59); BUN Creatinine Ratio 18.1 (6-22); Bilirubin Total 1.2 mg/dL (0.2-1.3); Blood Urea Nitrogen 25 mg/dL (9-20); Calcium 8.9 mg/dL (8.4-10.2); Carbon Dioxide 22 mmol/L (22-32); Chloride 106 mmol/L (98-107); Creatine Kinase 200 U/L (55-170); Estimated Glomerular Filt Rate 51 mL/min (>60); Globulin 3.2 g/dL (1.7-4.1); Glucose 89 mg/dL (80-110); Magnesium 2.2 mg/dL (1.6-2.3); Potassium 4.1 mmol/L (3.4-5.1); Sodium 138 mmol/L (137-145); Total Protein 7.8 g/dL (6.3-8.2)
[2021-11-07 14:45] LABS: HEMOLYSIS 54 (0-50)
[2021-11-07 14:53] LABS: Troponin I < 0.012 ng/mL (0.01-0.034)
[2021-11-07 14:58] LABS: CKMB % Relative Index 1.3 % (1.5-5.0); Creatine Kinase MB 2.58 ng/mL (<2.37)
--- NOTE | 2021-11-07 15:14 | ED.DIZZY ---
HPI - Dizziness General Chief Complaint: Dizziness Stated Complaint: Light headed, double vision Time Seen by Provider: 11/07/21 14:12 Source: patient and family Mode of arrival: Ambulatory History of Present Illness HPI Narrative: This 81-year-old gentleman was last known well at 12:30 p.m. when he got into a car to travel over to [place] [place] to do some [place] on the beach. They got to the parking lot on [address] he could not stand or walk with a steady gait at that time. He felt very dizzy. He denies any illness leading up to this today. His daughter does report that yesterday was a very busy day for him and he did a large barbecue for a large group of friends gathered. His suffers from significant dementia and they were in the company of a caregiver. No fever, no cough, no nausea, no vomiting, no pain or headache or neck pain. Related Data Home Medications Medication Instructions Recorded Confirmed aspirin 81 mg tablet,delayed 81 mg PO QDAY ##0 04/10/16 06/22/21 release omeprazole 20 mg capsule,delayed 20 mg PO DAILY ##0 04/10/16 06/22/21 release carvedilol 6.25 mg tablet (Coreg) 6.25 mg PO 1-2XD ##0 08/15/16 06/22/21 losartan 25 mg tablet (Cozaar) 12.5 mg PO QDAY ##0 09/20/16 06/22/21 spironolactone 25 mg tablet 12.5 mg PO QDAY ##0 09/20/16 06/22/21 (Aldactone) [Vitamin B12] 15 ml PO QDAY ##0 03/14/17 06/22/21 primidone 50 mg tablet (Mysoline) 1 - 5 tab PO QDAY ##0 03/14/17 06/22/21 Disabled Parking Permit See Protocol DAILY 06/22/21 06/22/21 Previous Rx's Medication Instructions Recorded furosemide 40 mg tablet 40 mg PO Q DAY ##30 07/05/16 nystatin 100,000 unit/gram topical 1 grey topical BID ##30 03/14/17 cream lamotrigine 200 mg tablet 200 mg PO BID #180 tabs 05/31/17 (Lamictal) bupropion HCl 75 mg tablet 75 mg PO BID #60 tabs 04/10/18 Allergies Allergy/AdvReac Type Severity Reaction Status Date / Time No Known Drug Allergies Allergy Verified 04/06/20 13:19 Review of Systems Review of Systems Narrative: Complete review of systems is negative other than as noted above. Patient History Surgical History (Updated 07/10/17 @ 05:46 by Conversion Provider) Status post appendectomy Status post coronary artery bypass graft Family History (Updated 12/22/14 @ 00:00 by Conversion Provider) Sister Age: 79 COPD (chronic obstructive pulmonary disease) Social History household members: spouse Smoking Status: Never smoker alcohol intake: never Smoking Status: Never smoker alcohol intake frequency: holidays/special occasions only Substance Use Type: does not use Exam Narrative Exam Narrative: GENERAL: Alert, cooperative and in no distress. HEAD: Atraumatic. Normocephalic. EYES: Sclera are clear without icterus. Extraocular movements are full. ENT: No rhinorrhea. Oropharynx is moist. Mouth exam is benign. NECK: Supple. Full range of motion. CARDIOVASCULAR: Normal rate and rhythm without murmur gallop or rub. RESPIRATORY: Clear to auscultation. Breath sounds equal bilaterally. No wheezes, rales, or rhonchi. GASTROINTESTINAL: Abdomen soft, non-tender, nondistended. EXTREMITIES: No edema, full range of motion. No obvious trauma. BACK: Normal inspection, no CVA tenderness. NEURO: Nonfocal examination, normal speech, normal gait. SKIN: No rash or erythema of visible areas PSYCH: Normally oriented. Normal range of affect. Appropriate behavior Initial Vital Signs Initial Vital Signs: Vital Signs Temperature 98 F 11/07/21 14:18 Pulse Rate 69 11/07/21 14:18 Respiratory Rate 16 11/07/21 14:18 Blood Pressure 124/59 L 11/07/21 14:18 Pulse Oximetry 99 11/07/21 14:18 Oxygen Delivery Method 11/07/21 14:18 Scores NIH Stroke Scale Level of Conciousness: Alert, keenly responsive Ask month/age: Answers both questions correctly. Open/close eyes, close hand: Performs both tasks correctly Best gaze horizontal: Normal Visual [place]: No visual loss Facial palsy: Normal symetrical movement Left arm drift: No drift for full 10 sec Right arm drift: No drift for full 10 sec Left leg drift: No drift for full 5 sec Right leg drift: No drift for full 5 sec Limb ataxia: Absent Sensory on face/arms/legs: Normal, no sensory loss Best language: No aphasia, normal Dysarthria: Normal Extinction or inattention: No abnormality Total NIH Stroke scale score: 0 Citation:: His speech is a little bit unclear and the reading is not quite fluent but his daughter says that this is typical for him over many years. Course Course Decision to Admit Date: 11/07/21 Decision to Admit time: 16:31 Orders Ordered: ED Orders 11/07/21 14:15 Comprehensive Metabolic Panel Stat Magnesium Stat Partial Thromboplastin Time Stat Prothrombin Time INR Stat Troponin & CK Cardiac Panel Stat 11/07/21 14:17 XR chest 1V Stat 11/07/21 14:18 CT head/brain wo con Stat 11/07/21 15:00 Complete Blood Count AUTO DIFF Stat 11/07/21 15:54 COVID19 - ADMIT ([employer] swab/PCR) Stat Discontinued Medications Aspirin (Aspirin 325 Mg Tablet) 325 mg PO NOW ONE Stop: 11/07/21 16:33 Sodium Chloride (Normal Saline 0.9%) 500 mls @ 1,000 mls/hr IV BOLUS ONE Stop: 11/07/21 14:47 Last Infusion: 11/07/21 16:00 Dose: 0 mls/hr Documented By: Admin: 11/07/21 15:30 Dose: 1,000 mls/hr Documented By: STEPHEN Consultations Consultation #1: Spoke to Oscar marcos who accepts the patient. [id number] Vital Signs Vital signs: Vital Signs - 8 hr 11/07/21 14:18 11/07/21 15:27 11/07/21 15:28 Temperature 98 F Pulse Rate 69 69 69 Respiratory Rate 16 Blood Pressure 124/59 L Pulse Oximetry 99 98 99 Oxygen Delivery Method Room Air 11/07/21 15:28 11/07/21 15:30 11/07/21 15:30 Temperature Pulse Rate 69 Respiratory Rate 21 Blood Pressure 142/64 H 119/61 Pulse Oximetry 100 Oxygen Delivery Method MDM - Dizziness Lab Data Result diagrams: 11/07/21 15:00 11/07/21 14:15 Labs: Lab Results 11/07/21 11/07/21 11/07/21 Range/Units 14:15 14:15 15:00 WBC 4.4 L (4.5-11.0) X10^3/uL RBC 3.67 L (4.5-5.9) X10^6/uL Hgb 12.7 L (13.5-17.5) g/dL Hct 37.4 L (41-53) % MCV 101.7 H (80-100) fL MCH 34.4 H (26-34) PG MCHC 33.9 (30-36) % RDW 13.8 (11.6-14.8) % Plt Count 138 L (150-400) X10^3/uL Neut % (Auto) 65.5 (50-75) % Lymph % (Auto) 18.4 L (25-40) % [place] % (Auto) 12.9 (3-14) % Eos % (Auto) 2.6 (2-4) % Baso % (Auto) 0.6 (0-2) % Neut # (Auto) 2900 (1170-3319) /uL Lymph # (Auto) 800 L (8681-8688) /uL [place] # (Auto) 600 (0-900) /uL Eos # (Auto) 100 (0-450) /uL Baso # (Auto) 0 (0-100) /uL PT 19.9 H (10.1-12.7) SECONDS INR 1.7 H (0.9-1.3) APTT 20 L (26-36) SECONDS Sodium 138 (137-145) mmol/L Potassium 4.1 (3.4-5.1) mmol/L Chloride 106 (98-107) mmol/L Carbon Dioxide 22 (22-32) mmol/L BUN 25 H (9-20) mg/dL Creatinine 1.38 H (0.66-1.25) mg/dL Estimated GFR 51 L (>60) mL/min BUN/Creatinine Ratio 18.1 (6-22) Glucose 89 (80-110) mg/dL Calcium 8.9 (8.4-10.2) mg/dL Magnesium 2.2 (1.6-2.3) mg/dL Total Bilirubin 1.2 (0.2-1.3) mg/dL AST 44 (17-59) IU/L ALT 32 (<50) IU/L Alkaline Phosphatase 66 (38-126) U/L Total Creatine Kinase 200 H (55-170) U/L CK-MB (CK-2) 2.58 H (<2.37) ng/mL CK-MB (CK-2) Rel Index 1.3 L (1.5-5.0) % Troponin I < 0.012 (0.01-0.034) ng/mL Total Protein 7.8 (6.3-8.2) g/dL Albumin 4.6 (3.5-5.0) g/dL Globulin 3.2 (1.7-4.1) g/dL Albumin/Globulin Ratio 1.4 (1.0-2.8) Imaging Data Chest x-ray: Radiologist's Impression: IMPRESSION:? No acute cardiopulmonary abnormality. ? ? ? Dictated by: Arturo Morris M.D. on 11/07/2021 at 14:40 ? ? Approved by: Arturo Morris M.D. on 11/07/2021 at 14:40 ? CT scan - head: Radiologist's Impression: IMPRESSION:? 1. No acute intracranial abnormality. 2. Cerebral volume loss and small vessel ischemic changes.? Dictated by: Arturo Morris M.D. on 11/07/2021 at 14:41 ? ? Approved by: Arturo Morris M.D. on 11/07/2021 at 14:42 ? ECG Data Interpretation: ECG obtained at 2:08 p.m. shows a ventricular paced rhythm at 72 beats per minute. No acute ST or T-wave change. MDM Narrative Medical decision making narrative: Patient is suddenly weak today well on an outing. No focal neurologic deficit. Imaging is nonrevealing. Patient cannot ambulate without unsteadiness that is severe. Will admit for further workup and presumptive stroke. Discharge Plan Departure Patient Disposition: Admitted As Inpatient Clinical Impression: Dizziness, Weakness
[2021-11-07 15:24] LABS: Add Manual Diff / Slide Review NO; Basophils Absolute Auto 0 /uL (0-100); Basophils Percent Auto 0.6 % (0-2); Eosinophils Absolute Auto 100 /uL (0-450); Eosinophils Percent Auto 2.6 % (2-4); Hematocrit 37.4 % (41-53); Hemoglobin 12.7 g/dL (13.5-17.5); Lymphocytes Absolute Auto 800 /uL (1100-4500); Lymphocytes Percent Auto 18.4 % (25-40); Mean Corpuscular HGB Conc 33.9 % (30-36); Mean Corpuscular Hemoglobin 34.4 PG (26-34); Mean Corpuscular Volume 101.7 fL (80-100); Monocytes Absolute Auto 600 /uL (0-900); Monocytes Percent Auto 12.9 % (3-14); Neutrophils Absolute Auto 2900 /uL (1500-7000); Neutrophils Percent Auto 65.5 % (50-75); Platelet Count 138 X10^3/uL (150-400); Red Blood Cell Count 3.67 X10^6/uL (4.5-5.9); Red Cell Distribution Width 13.8 % (11.6-14.8); White Blood Cell Count 4.4 X10^3/uL (4.5-11.0)
[2021-11-07] MEDS: SODIUM CHLORIDE 0.9% 500 ML 1000 ML IV (15:30)
[2021-11-07 16:58] LABS: COVID19 - ADMIT (NP swab/PCR) Negative (Negative)
[2021-11-07] MEDS: ASPIRIN 325 MG TABLET PO (17:27)
[2021-11-07 18:37] LABS: Hemoglobin A1C% w Est Avg Glu 5.3 % (4.0-6.0)
[2021-11-07 18:51] LABS: TSH w/ Reflex to FT4 0.68 uIU/mL (0.47-4.68)
[2021-11-07] MEDS: SODIUM CHLORIDE 0.9% 1,000 ML 100 ML IV (18:54)
[2021-11-07 19:25] LABS: Folate > 20.0 ng/mL (2.76-20.0); Vitamin B12 > 1000 pg/mL (239-931)
[2021-11-07] MEDS: HEPARIN 5,000 UNIT/ML VIAL 5000 UNIT SUBCUT (20:14)
[2021-11-07 21:01] LABS: Appearance Urine UA CLEAR; Bilirubin Urine UA NEGATIVE (NEGATIVE); Color Urine UA YELLOW; Glucose Urine UA NEGATIVE (Negative); Ketones Urine UA NEGATIVE (NEGATIVE); Leukocyte Esterase Urine UA NEGATIVE (NEGATIVE); Nitrite Urine UA NEGATIVE (Negative); Occult Blood Urine UA NEGATIVE (Negative); Protein Urine UA NEGATIVE (Negative); Specific Gravity Urine UA <=1.005 (1.000-1.035); Urobilinogen Urine UA 0.2 E.U./dL (0.2)
[2021-11-07 21:08] LABS: Bacteria Urine None Seen; Culture Indicated Urine Cult Not Indicated; RBC Urine None Seen (0-5/HPF); WBC Urine None Seen (0-5/HPF)
[2021-11-07] MEDS: TOPIRAMATE 100 MG TABLET 200 MG PO (21:24)
[2021-11-07] MEDS: lamoTRIgine 100 MG TABLET 200 MG PO (21:24)
[2021-11-07] MEDS: buPROPion 75 MG TABLET PO (22:05)
[2021-11-07 22:10] LABS: Hematocrit 40.3 % (41-53); Hemoglobin 13.6 g/dL (13.5-17.5)
[2021-11-07 22:30] LABS: Troponin I 0.019 ng/mL (0.01-0.034)
[2021-11-07 23:21] LABS: HEMOLYSIS 18 (0-50); Iron 92 ug/dL (49-181)
[2021-11-07 23:32] LABS: Percent Iron Saturation 39 % (20-50); Total Iron Binding Capacity 236 ug/dL (261-462); Transferrin 173 mg/dL (206-381)
--- NOTE | 2021-11-08 00:32 | PM.HP.1 ---
History of Present Illness History of Present Illness Date Patient Seen: 11/07/21 Time Patient Seen: 17:51 Chief complaint: Light headed, double vision Narrative: Heron Soto is a 81yo male with a history of remote quintuple CABG (2003), hypertension, CHF, CAD of the [place] artery, cardiomyopathy, history of basal cell carcinoma, HLD, bradycardia, bipolar, Gerd, MARGARITO, essential tremor, atrial fibrillation (Coreg, Eliquis, and pacemaker)that presented to the ED following an episode mid day in which the patient was unable to get out of his car or walk due to severe dizziness. Last known well at 12:30 p.m. when he got into a car to travel over to [facility], once going to get out of the car he felt very dizzy, weakness, unsteady and was brought into the ED.?the patient notes that he experienced double vision with the dizziness, the room was spinning he was not, no vomiting, denies diaphoresis, chest pain, shortness of breath, felt generalized weakness due to the dizziness but no coordination deficit, numbness or tingling, no ataxia, dysarthria, no specific focal or lateral weakness, deafness or tinnitus, recent URI or ear infections, visual loss, or changes in his symptoms with coughing or sneezing. Patient denies any dysuria urgency frequency, hematuria, hematemesis, melena, any recent wounds or injuries or blood loss. He denies any recent illness, head or body trauma, or injury. The patient states that he was prescribed metoprolol XL 25 mg b.i.d. approximately 2 weeks ago, patient also takes Coreg, metoprolol, losartan, spirolactone, and Lasix. He reports to drinking approximately 64 oz fluid a day. The patient does report that he has frequent bouts of diarrhea weekly and had bouts of diarrhea today, including upon admit to the floor. His daughter reported in the ED yesterday was a very busy day for him and he did a large barbecue for a large group of friends gathered.? The patient verbalized he is also under increased severe stress due to his 's significant dementia, the patient does have the assistance of a caregiver.? Upon admit the patient is resting comfortably in bed and states that the vertigo and all symptoms have resolved at this time. But did just returned from the bathroom having had an additional episode of diarrhea. ?Patient notes that he frequently observes systolic blood pressures in or below 100 at home. Patient does have residual dysarthria from previous stroke Upon admit vital signs temp is 96.4?, BP 114/62, HR 70, RR 18, O2 saturation 98% on room air, BMI 24.9. Patient's WBC 4.4, mild anemia noted on initial lab work which is atypical for the patient HGB 12.7 HCT 37.4, RBC 3.67, MCV 101.7, MCH 34.4. Patient demonstrates mild JON BUN 25 and a creatinine of 1.38, GFR 51, total creatinine kinase 200, CK-22.58, CK RI 1.3, initial troponin is within normal limits, vitamin B12, folate, TSH are pending. NIH:[address] is negative for any intracranial acute processes. Patient's chest x-ray is negative for any acute cardiopulmonary processes. Patient's EKG notes a ventricular paced rhythm at a rate of [address] or T-wave changes. Patient's last echo was 06/2021 with an EF of 30-35%. Patient admitted for observation for vertigo, weakness, mild anemia, JON r/o possible TIA. Patient History Medical History (Updated 11/08/21 @ 01:05 by DAMARIS Hernandes) Atrial fibrillation with controlled ventricular rate Bipolar disorder Cardiomyopathy CHF (congestive heart failure) Coronary artery disease due to lipid rich plaque Essential hypertension Essential tremor GERD (gastroesophageal reflux disease) Hyperlipidemia Obstructive sleep apnea Pacemaker Surgical History (Updated 11/08/21 @ 01:03 by DAMARIS Hernandes) Hx of CABG Status post appendectomy Status post coronary artery bypass graft Family & Social History Family History (Updated 11/08/21 @ 01:05 by FERN Hernandes-ELENA) Sister Age: 79 COPD (chronic obstructive pulmonary disease) Spouse Advanced dementia Social History: household members spouse, and in [facility] Prior Living Arrangements House Safety & Behavioral: Feels Safe in Current Yes Environment Been Physically Hurt or No Threatened By a Person Tobacco & Substance use: Smoking Status Never smoker alcohol intake never alcohol intake frequency holiday/special occasion Substance Use Type does not use Meds Home Medications and Allergies Home Medications Medication Instructions Recorded Confirmed Type omeprazole 20 mg capsule,delayed 20 mg PO DAILY ##0 04/10/16 11/07/21 History release furosemide 40 mg tablet 40 mg PO Q DAY ##30 07/05/16 11/07/21 Rx carvedilol 6.25 mg tablet (Coreg) 6.25 mg PO DAILY ##0 08/15/16 11/07/21 History lamotrigine 200 mg tablet 200 mg PO BID #180 tabs 05/31/17 11/07/21 Rx (Lamictal) apixaban 5 mg tablet (Eliquis) 5 mg PO BID 11/07/21 11/07/21 History atorvastatin 20 mg tablet 20 mg PO DAILY 11/07/21 11/07/21 History bupropion HCl 75 mg tablet 75 mg PO BID 11/07/21 11/07/21 History losartan 25 mg tablet 25 mg PO DAILY 11/07/21 11/07/21 History metoprolol succinate 25 mg 25 mg PO BID 11/07/21 11/07/21 History tablet,extended release 24 hr spironolactone 25 mg tablet 12.5 mg PO DAILY 11/07/21 11/07/21 History topiramate 200 mg tablet 200 mg PO BID 11/07/21 11/07/21 History Allergies Allergy/AdvReac Type Severity Reaction Status Date / Time No Known Drug Allergies Allergy Verified 04/06/20 13:19 Review of Systems Review of Systems Narrative: All 12 point systems reviewed with the patient and are negative except otherwise documented. Exam Vital Signs (past 8 hours): - 11/07/21 17:07 11/07/21 17:30 11/07/21 17:31 Temperature Pulse Rate 72 69 Respiratory Rate 19 Blood Pressure 135/65 Pulse Oximetry 99 100 11/07/21 17:31 11/07/21 18:00 11/07/21 20:07 Temperature 96.4 F L Pulse Rate 69 69 70 Respiratory Rate 18 20 18 Blood Pressure 114/62 Pulse Oximetry 99 99 98 11/07/21 22:55 Temperature 96.8 F L Pulse Rate 68 Respiratory Rate 18 Blood Pressure 105/59 L Pulse Oximetry 95 Oxygen Delivery Method Room Air Narrative Exam Narrative: General: Patient is a thin elderly pleasant male, in no distress at this time. HEENT: Normocephalic, atraumatic, extraocular muscles intact, oral pharynx is clear and mucous membranes are moist. Neck is supple and symmetric, trachea is midline, no adenopathy, no thyroid enlargement, nontender, no masses palpated. Negative for JVD Chest: Non labored breathing without nasal flaring, retractions, or tachypnia Lungs: Auscultation of all lung [place] are clear without adventitious sounds, wheezes, rhonchi, or rales. Cardio: Bradycardic regular rate and rhythm without murmur, rubs, or gallops, no carotid bruit, no cardiac pulsations present. Abdomen: Soft nontender, negative for organomegaly, or masses. Bowel sounds are hyperactive present in all 4 quadrants without guarding or rebound, no CVA tenderness. Musculoskeletal: Muscle strength and tone are equal within normal limits, no deformity, crepitus, effusions, cyanosis, clubbing or edema present. Full range of motion intact radial and pedal pulses are normal. Skin: Warm dry and intact without rashes, ulcerations or petechiae. Neuro: Alert and orientated x3, strength is +5/5 in all extremities, sensation to touch intact, no gross deficits noted of cranial nerves. NIH:0 Psych: Patient has a well-kept appearance, appropriate affect, mental status attitude thought context and judgment are appropriate for age. Objective Labs Result Diagrams: 11/07/21 22:00 11/07/21 14:15 Labs: Laboratory Results - last 24 hr 11/07/21 11/07/21 11/07/21 14:15 14:15 15:00 WBC 4.4 L RBC 3.67 L Hgb 12.7 L Hct 37.4 L MCV 101.7 H MCH 34.4 H MCHC 33.9 RDW 13.8 Plt Count 138 L Neut % (Auto) 65.5 Lymph % (Auto) 18.4 L [place] % (Auto) 12.9 Eos % (Auto) 2.6 Baso % (Auto) 0.6 Neut # (Auto) 2900 Lymph # (Auto) 800 L [place] # (Auto) 600 Eos # (Auto) 100 Baso # (Auto) 0 PT 19.9 H INR 1.7 H APTT 20 L Sodium 138 Potassium 4.1 Chloride 106 Carbon Dioxide 22 BUN 25 H Creatinine 1.38 H Estimated GFR 51 L BUN/Creatinine Ratio 18.1 Glucose 89 Hemoglobin A1c Calcium 8.9 Magnesium 2.2 Iron TIBC % Saturation Transferrin Total Bilirubin 1.2 AST 44 ALT 32 Alkaline Phosphatase 66 Total Creatine Kinase 200 H CK-MB (CK-2) 2.58 H CK-MB (CK-2) Rel Index 1.3 L Troponin I < 0.012 Total Protein 7.8 Albumin 4.6 Globulin 3.2 Albumin/Globulin Ratio 1.4 Vitamin B12 Folate TSH Urine Color Urine Appearance Urine pH Ur Specific [place] Urine Protein Urine Glucose (UA) Urine Ketones Urine Occult Blood Urine Nitrate Urine Bilirubin Urine Urobilinogen Ur Leukocyte Esterase Urine RBC Urine WBC Urine Bacteria Ur Culture Indicated? SARS-CoV-2 (PCR) 11/07/21 11/07/21 11/07/21 15:00 15:00 15:00 WBC RBC Hgb Hct MCV MCH MCHC RDW Plt Count Neut % (Auto) Lymph % (Auto) [place] % (Auto) Eos % (Auto) Baso % (Auto) Neut # (Auto) Lymph # (Auto) [place] # (Auto) Eos # (Auto) Baso # (Auto) PT INR APTT Sodium Potassium Chloride Carbon Dioxide BUN Creatinine Estimated GFR BUN/Creatinine Ratio Glucose Hemoglobin A1c 5.3 Calcium Magnesium Iron TIBC % Saturation Transferrin Total Bilirubin AST ALT Alkaline Phosphatase Total Creatine Kinase CK-MB (CK-2) CK-MB (CK-2) Rel Index Troponin I Total Protein Albumin Globulin Albumin/Globulin Ratio Vitamin B12 > 1000 H Folate > 20.0 H TSH 0.68 Urine Color Urine Appearance Urine pH Ur Specific [place] Urine Protein Urine Glucose (UA) Urine Ketones Urine Occult Blood Urine Nitrate Urine Bilirubin Urine Urobilinogen Ur Leukocyte Esterase Urine RBC Urine WBC Urine Bacteria Ur Culture Indicated? SARS-CoV-2 (PCR) 11/07/21 11/07/21 11/07/21 15:54 20:35 22:00 WBC RBC Hgb Hct MCV MCH MCHC RDW Plt Count Neut % (Auto) Lymph % (Auto) [place] % (Auto) Eos % (Auto) Baso % (Auto) Neut # (Auto) Lymph # (Auto) [place] # (Auto) Eos # (Auto) Baso # (Auto) PT INR APTT Sodium Potassium Chloride Carbon Dioxide BUN Creatinine Estimated GFR BUN/Creatinine Ratio Glucose Hemoglobin A1c Calcium Magnesium Iron TIBC % Saturation Transferrin Total Bilirubin AST ALT Alkaline Phosphatase Total Creatine Kinase CK-MB (CK-2) CK-MB (CK-2) Rel Index Troponin I 0.019 Total Protein Albumin Globulin Albumin/Globulin Ratio Vitamin B12 Folate TSH Urine Color Yellow Urine Appearance Clear Urine pH 7.0 Ur Specific [place] <=1.005 Urine Protein Negative Urine Glucose (UA) Negative Urine Ketones Negative Urine Occult Blood Negative Urine Nitrate Negative Urine Bilirubin Negative Urine Urobilinogen 0.2 Ur Leukocyte Esterase Negative Urine RBC None seen Urine WBC None seen Urine Bacteria None seen Ur Culture Indicated? Cult not indicated SARS-CoV-2 (PCR) Negative 11/07/21 11/07/21 22:00 22:00 WBC RBC Hgb 13.6 Hct 40.3 L MCV MCH MCHC RDW Plt Count Neut % (Auto) Lymph % (Auto) [place] % (Auto) Eos % (Auto) Baso % (Auto) Neut # (Auto) Lymph # (Auto) [place] # (Auto) Eos # (Auto) Baso # (Auto) PT INR APTT Sodium Potassium Chloride Carbon Dioxide BUN Creatinine Estimated GFR BUN/Creatinine Ratio Glucose Hemoglobin A1c Calcium Magnesium Iron 92 TIBC 236 L % Saturation 39 Transferrin 173 L Total Bilirubin AST ALT Alkaline Phosphatase Total Creatine Kinase CK-MB (CK-2) CK-MB (CK-2) Rel Index Troponin I Total Protein Albumin Globulin Albumin/Globulin Ratio Vitamin B12 Folate TSH Urine Color Urine Appearance Urine pH Ur Specific [place] Urine Protein Urine Glucose (UA) Urine Ketones Urine Occult Blood Urine Nitrate Urine Bilirubin Urine Urobilinogen Ur Leukocyte Esterase Urine RBC Urine WBC Urine Bacteria Ur Culture Indicated? SARS-CoV-2 (PCR) Assessment & Plan Assessment & Plan narrative: Heron Soto is a 81yo male with a history of remote quintuple CABG (2003), hypertension, CHF, CAD of the [place] artery, cardiomyopathy, history of basal cell carcinoma, HLD, bradycardia, bipolar, Gerd, MARGARITO, essential tremor, atrial fibrillation (Coreg, Eliquis, and pacemaker)that presented to the ED following an episode mid day in which the patient was unable to get out of his car or walk due to severe dizziness, weakness, unsteady and was brought into the ED, and admitted for observation for vertigo, weakness, mild anemia, JON r/o possible TIA. Patient to be hydrated, to correct JON, monitor H/H and bleeding, PT/OT evaluation, medication re-evaluation. 1. Severe vertigo with weakness, acute on chronic, present on admission -I suspect this is likely due to hypotension/Bradycardia related to dehydration from a combination of blood pressure medications metoprolol 25mg BID, [id number] QD, and Coreg 6.25QD and diuretics of spirolactone 12.5QD and Lasix 40mg QD. And generalized deconditioning. Patient also has a prior admit history of bradycardia, dizziness, and weakness back in june in which a pacemaker was placed. My suspicions of a TIA are low at this point and unable to complete an MRI due the patient's pacemaker in place. Patient's NIH score have remained at 0. -ASA continue patient's Lipitor, Eliquis, -ordered BMP, BNP, lipids, A1c -PT/OT [id number] maneuvers -neuro checks Q shift -will hold patient's metoprolol, Lasix, spirolactone-patient had no edema on exam and appeared extremely dry. -orthostatic vital signs Q 4 hours while patient is awake -gentle rehydration NS at 60 cc HR 2. Hypotension, likely medication-induced, in the setting of essential hypertension, and pacemaker placement acute on chronic, present on admission -initial BP in ED was 142/64, repeat blood pressure is 119/61, upon admit 114/62, currently 105/59, heart rates ventricularly paced 72-69 -continue Coreg 6.25 mg daily, losartan 25 mg daily-holding metoprolol 25 mg b.i.d., spirolactone 12.5 q.day, and Lasix 40 mg q.day -Evaluate if patient's blood pressure improves with holding the metoprolol, to determine whether to stop or decrease dosage-with outpatient 2 week follow-up with Cardiology 3. Mild JON likely prerenal, acute, present on admission -likely secondary to fluid volume loss from possible over-diuresis and diarrhea. -Holding spirolactone 12.5 q.day, and Lasix 40 mg q.day -recommend considering decreasing Lasix dose to 20 mg a day and/or stopping spirolactone-with outpatient 2 week follow-up with Cardiology -gentle rehydration secondary to diarrhea/dehydration -orthostatic vital signs Q 4 hours while patient is awake -Monitor renal function -Do to frequent diarrhea- stool culture, H pylori ordered 4. Mild anemia, with thrombocytopenia, unknown etiology, acute, present on admission -likely secondary to inadequate nutrition and fluid intake -HGB 12.7, a HCT 37.4, RBC 3.67, MCV 101.7, MCH 34.4, platelets 138 -previous labs from June 2021 were all within normal limits Plt 210 -Monitor for bleeding, repeat H&H and CBC in a.m. -Do to reported frequent diarrhea-Occult Blood, stool culture, H pylori ordered -iron, TIBC, B12, folate, transferrin 5. Atrial fibrillation on Eliquis, rate controlled with pacemaker, chronic, present on admission -continue Eliquis patient placed on telemetry 6. Congestive heart failure, with worsening cardiomyopathy, chronic, present on admission -Echo June of 2021: Afib with variable rate. HR was 45-61 bpm during the study. Mildly dilated LV size and normal wall thickness. There is basal inferior, mid-inferior, mid-inferoseptal akinesis; there is basal inferolateral, mid- inferolateral, distal inferior hypokinesis. Best mostion is demonstrated by anterior segments. EF is 30-35% Severe LA enlargement; borderline RA enlargement. with worsening cardiomyopathy -continue Coreg 6.25 mg daily, losartan 25 mg daily-holding metoprolol 25 mg b.i.d., spirolactone 12.5 q.day, and Lasix 40 mg q.day -Monitor I & O, fluid overload, no edema found on exam, lung sounds clear. -BNP, Mag, Trend Trop x3- ordered 7. Hx of quintuple CABG 2003, remote, CAD of the [place] artery, chronic, present on admission -managed by cardiology 8. Essential tremor, chronic, stable, present on admission -continue topiramate 9. Bipolar disorder, chronic, present on admission -continue patient's Wellbutrin & lamictal Code status:Full Surrogate decision maker: Daughter Jazmin JANE PCR: Negative DVT/VTE prophylaxis: Continue patient's Eliquis and SCDs Disposition: Patient admitted overnight for observation, rehydration to correct JON dehydration from diarrhea, monitor for bleeding trach H&H, cessation of metoprolol and diuretics and evaluate hypotension and vertigo. I have utilized all available immediate resources to obtain, update, or review the patient's current medications. I confirmed that the patient's advanced care plan is present, Code status is documented and/or surrogate decision maker is listed in the patient's medical record. Time Spent With Patient Critical Care time: I spent a total of [] minutes of critical care time on this patient's care today; this time is exclusive of procedural time. Quality VTE Deep Vein Thrombosis/Pulmonary Embolism Present on Admission: No
[2021-11-08] MEDS: SODIUM CHLORIDE 0.9% 1,000 ML 60 ML IV (05:29)
[2021-11-08] MEDS: PANTOPRAZOLE DR 20 MG TABLET PO (05:29)
[2021-11-08 05:42] VITALS: BP 107/65; PULSE 73; RESP 17; TEMP 35.8; O2SAT 99
[2021-11-08 05:45] VITALS: BP 115/60; BP 120/65; PULSE 70; PULSE 73
[2021-11-08 05:46] LABS: Add Manual Diff / Slide Review NO; Basophils Absolute Auto 0 /uL (0-100); Basophils Percent Auto 0.5 % (0-2); Eosinophils Absolute Auto 200 /uL (0-450); Eosinophils Percent Auto 3.3 % (2-4); Hematocrit 35.8 % (41-53); Hemoglobin 12.1 g/dL (13.5-17.5); Lymphocytes Absolute Auto 900 /uL (1100-4500); Lymphocytes Percent Auto 19.3 % (25-40); Mean Corpuscular Hemoglobin 34.4 PG (26-34); Mean Corpuscular Volume 101.3 fL (80-100); Monocytes Absolute Auto 500 /uL (0-900); Monocytes Percent Auto 11.2 % (3-14); Neutrophils Absolute Auto 3200 /uL (1500-7000); Neutrophils Percent Auto 65.7 % (50-75); Platelet Count 133 X10^3/uL (150-400); Red Blood Cell Count 3.53 X10^6/uL (4.5-5.9); Red Cell Distribution Width 13.7 % (11.6-14.8); White Blood Cell Count 4.8 X10^3/uL (4.5-11.0)
[2021-11-08 05:58] LABS: BUN Creatinine Ratio 16.9 (6-22); Blood Urea Nitrogen 20 mg/dL (9-20); Calcium 8.6 mg/dL (8.4-10.2); Carbon Dioxide 21 mmol/L (22-32); Chloride 113 mmol/L (98-107); Estimated Glomerular Filt Rate > 60 mL/min (>60); Glucose 87 mg/dL (80-110); HEMOLYSIS < 15 (0-50); Potassium 4.3 mmol/L (3.4-5.1); Sodium 141 mmol/L (137-145)
[2021-11-08 06:00] LABS: Cholesterol 86 mg/dL (140-199); HDL Cholesterol 46 mg/dL (40-60); LDL Cholesterol Calculated 25 mg/dL (<100); Triglycerides 75 mg/dL (35-150)
[2021-11-08 06:05] LABS: Hemoglobin A1C% w Est Avg Glu 5.3 % (4.0-6.0)
[2021-11-08 06:06] LABS: NT-proBNP (BNP-Adult 18+) 3560 pg/mL (<450)
[2021-11-08 06:28] LABS: INR 1.4 (0.9-1.3); Prothrombin Time 15.7 SECONDS (10.1-12.7)
[2021-11-08 08:58] VITALS: BP 109/60; PULSE 70; RESP 18; TEMP 35.9; O2SAT 100
[2021-11-08 09:00] VITALS: BP 109/60; PULSE 70
[2021-11-08] MEDS: APIXABAN 5 MG TABLET PO (09:00)
[2021-11-08] MEDS: buPROPion 75 MG TABLET PO (09:00)
[2021-11-08] MEDS: ATORVASTATIN 20 MG TABLET PO (09:00)
[2021-11-08] MEDS: lamoTRIgine 100 MG TABLET 200 MG PO (09:00)
[2021-11-08] MEDS: carvediloL 3.125 MG TABLET 6.25 MG PO (09:00)
[2021-11-08 09:01] VITALS: BP 109/60
[2021-11-08] MEDS: LOSARTAN 25 MG TABLET PO (09:01)
[2021-11-08] MEDS: TOPIRAMATE 100 MG TABLET 200 MG PO (09:01)
--- NOTE | 2021-11-08 10:08 | OT.IP.EVAL ---
Past Medical History (Last Updated 11/08/21 @ 01:05 [facility] Atrial fibrillation with controlled ventricular rate Bipolar disorder Cardiomyopathy CHF (congestive heart failure) Coronary artery disease due to lipid rich plaque Essential hypertension Essential tremor GERD (gastroesophageal reflux disease) Hyperlipidemia Obstructive sleep apnea Pacemaker Surgical History (Last Updated 11/08/21 @ 01:03 by [facility] Hx of CABG Status post appendectomy Status post coronary artery bypass graft Occupational Therapy Inpatient Evaluation/Re-Eval M1 PT/OT-IP Prior Functional Status Start: 11/08/21 13:08 Freq: NEEDED Status: Active Protocol: Document 11/08/21 09:36 [facility] (Rec: 11/08/21 13:43 [facility] [id number]) Medical Review Prior Functional Status Communication Independent Mobility and Gait Independent and did not use a device to walk with. Activities of Daily Living and IADL's COmpletely independent with ADL, IADL, drives and takes care of his that is in the early stages of dementia. Prior Functional Level (Other details) Pt has caregivers that come 2x /week for 4 hours to assist with his 's needs. Social History Household Members spouse Living Arrangements House Number of Floors (Floors) One Floor Number of Stairs To Enter/Railing? 2 steps with right rail going up. Home Environment Standard Height Toilet,Walk in Shower Home Equipment Raised Toilet Seat Without Armrests,Shower Seat with Backrest,Hand Held Shower,Grab Bars In Shower M2 OT-IP Current Condition Start: 11/08/21 13:08 Freq: Status: Active Protocol: Document 11/08/21 09:36 [facility] (Rec: 11/08/21 13:43 [facility] [id number]) Occupational Therapy Current Condition Current Condition Evaluation Date 11/08/21 Treatment Diagnosis Severe vertigo/weakness Diagnosis Onset Date 11/07/21 M3 OT- IP Subjective and Pain Start: 11/08/21 13:08 Freq: Status: Active Protocol: Document 11/08/21 09:36 [facility] (Rec: 11/08/21 13:43 [facility] [id number]) OT- Subjective Occupational Therapy Visit Type Type Initial Evaluation Visit Start Time 09:36 Visit Stop Time 10:08 Total Visit Minutes 32 Occupational Therapy Visit Comments Patient Comments Pt agreed to get up for OT eval. Patient/Caregiver Goals TO go home. OT Pain Assessment Pain When Pain Assessed At Rest Pain Present Pain Present Denied Pain M4 OT- IP ADL's Start: 11/08/21 13:08 Freq: Status: Active Protocol: Document 11/08/21 09:36 [facility] (Rec: 11/08/21 13:43 [facility] [id number]) OT PXA-[id number]-Mmczphr Comments OT Self-Feeding Comments Not at meal time. OT ADL-Grooming General Evaluation Grooming Ability Independent Comments OT Grooming Comments Able to do while standing at the sink. OT ADL-Oral Care General Eval Oral Care Ability Independent OT ADL-Dressing General Eval Lower Body Dressing Ability Standby Assistance Comments OT Dressing Comments Close SBA due to pt's decreased dynamic balance but able to waqar/doff his socks with increased time. Pt states having more trouble then he usually does. OT ADL-Toileting Comments OT Toileting Comments Pt not having to go but able to get on and off the toilet on his own. OT ADL-Bathing Comments OT Bathing Comments NOt performed. Pt will greatly benefit to sit for showers at this time due to his decreased dynamic balance. M5 OT- IP IADL's Start: 11/08/21 13:08 Freq: Status: Active Protocol: Document 11/08/21 09:36 [facility] (Rec: 11/08/21 13:43 [facility] [id number]) OT-Instrumental Activities of Daily Living Home Safety Awareness Awareness of Need for Assistance at Home Good Awareness Ability to Problem Solve Emergency Able to Problem Solve Situations Home Safety Comments Pt seems to be thinking a little slower and would be best for someone to assist pt for needs as needed or be there for supervision. Driving Driving Concerns Identified Regarding Safety M6 OT- IP Functional Cognition Start: 11/08/21 13:08 Freq: Status: Active Protocol: Document 11/08/21 09:36 [facility] (Rec: 11/08/21 13:43 [facility] [id number]) Cognitive Factors Limiting Selfcare Function Cognitive Ability Level of Alertness Alert Patient Orientation Name,Place,Situation Attention Span Ability Capable of Focused Attention, Capable of Sustained Attention Ability to Follow Commands Able to Follow One Step Commands Memory Description Working Impaired Problem Solving Ability No deficits Noted Executive Function Ability Unable to Remember Details Cognitive Comments Cognitive Assessment Comments Pt able to follow commands for ADl and mobility needs independently. Pt able to answer all home safety questionairre with good accuracy. Pt having difficulty with Clarence Making Part B partially due to his right hand tremors. However pt still needing RIVKA for cues and scored 254 seconds which implies has severe impairments for task switching, executive functioning, mental flexibility, visual attention, and speed of processing. Strongly suggested that pt not drive at this time. Pt jokingly states, Just do not tell my kids. OT- Vision and Hearing OT- Hearing Assessment OT- Hearing Assessment WFL OT- Vision Assessment Vision History Cataracts Visual Acuity WFL Visual Attentiveness WFL Occular Pursuits WFL Visual Convergence WFL Visual Ochoa WFL M7 OT- IP Mobility and Balance Start: 11/08/21 13:08 Freq: Status: Active Protocol: Document 11/08/21 09:36 [facility] (Rec: 11/08/21 13:43 [facility] [id number]) OT- Bed Mobility Assessment Supine to Sit Supine to Sit Assist Standby Assistance Sit to Supine Sit to Supine Assist Standby Assistance Scooting Scooting to Edge of Bed Standby Assistance OT-Transfer Assessment Sit to and From Stand Sit to and from Stand Standby Assistance Transfers Transfer Ability Standby Assistance Technique Transfer Destination Bed,Chair Transfer Technique Stand Step Pivot Devices Transfer Assistive Devices None,Gait Belt Comments Mobility Comments SBA for all bed mobility and walking in the room without a device. OT- Balance Assessment Sitting Balance and Reactions Static Sitting Balance Ability Good Dynamic Sitting Balance Ability Fair Standing Balance and Reactions Static Standing Balance Ability Good Dynamic Standing Balance Ability Fair Comments Other Balance Tests/Deviations/Treatment Pt having difficulty with his : balance while leaning over to waqar/doff his socks and needing close SBA. Pt tends to hunch over when he walks and cues to standing taller. 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 M8 OT- IP Objective Assessments Start: 11/08/21 13:08 Freq: Status: Active Protocol: Document 11/08/21 09:36 [facility] (Rec: 11/08/21 13:43 [facility] [id number]) OT Gross Range of Motion Upper Extremity Range of Motion Assessment Within Functional Limits OT Strength Upper Extremity Strength Assessment Within Functional Limits OT- Coordination Assessment Upper Extremity Finger to Nose Test Within Functional Limits Finger Tapping Test Within Functional Limits OT-Muscle Tone Assessment Muscle Tone WNL Yes OT Sensation Assessment Comments Summary Comments Intact for light touch. M9 OT- IP Assessment and Plan Start: 11/08/21 13:08 Freq: Status: Active Protocol: Document 11/08/21 09:36 [facility] (Rec: 11/08/21 13:43 [facility] [id number]) OT Summary Assessment and Plan Potential Rehabilitation Potential Good Analytic Complexity at Evaluation Low Summary OT Impairments Balance,Functional Mobility, Dressing,Bathing,Activity Tolerance Progress Towards Goals Progressing Toward Goals,Slow Progress due to Cognition Assessment Summary Pt low complexity and main barriers are decreased dynamic balance and having difficulty with Clarence Making B which implies severe impairments for task switching, speed of processing, visual attention, mental flexibility, and executive functioning. Pt's score also affected by his right hand tremors. Pt would benefit from assist for driving needs, and possibly IADl needs as needed. Goals Dressing Goal Independent Toileting Goal Independent Bathing Goal Independent Toilet Transfer Goal Independent Shower Transfer Goal Independent Days to Meet Goals 5 Frequency of Treatment Frequency Of Treatment Once a Day Treatment Plan OT Treatment Plan ADL Training,Functional Cognition Training,Functional Mobility,Patient/Family Education,Discharge Planning Discharge Recommendations OT Discharge Recommendations Home with Assistance Transportation Needs at Discharge Private Vehicle
--- NOTE | 2021-11-08 10:18 | PM.DS.1 ---
History of Present Illness History of Present Illness Date Patient Seen: 11/08/21 Time Patient Seen: 09:00 Chief complaint: Light headed, double vision Narrative: Acute Renal Failure/ Acute Kidney Injury,Present on admission, Improving - Seemingly in setting of acute urinary obstruction and due to hydronephrosis - Obstruction relieved by Galdamez catheter, - Continue with IV fluids -Patient was thought to be constipated was prescribed laxatives however despite having multiple bowel movements patient continued at the same feelings of abdominal fullness -Patient became concerned came to the hospital for evaluation where blood work was performed and showed the patient had acute kidney injury secondary to urinary obstruction -CT scan showed that there is bladder outlet obstruction presumably caused by prostate enlargement? -Patient had Galdamez catheter placed and since then had 1500 immediately returned of urine -Nephrology was consulted current recommendations for patient to be monitored with Galdamez catheter and have his renal function assessed -Trend renal function, electrolytes - 11/12/21 discussed plan with patient to continue flomax, dc on 11/13/[address] and follow-up with PCP and urology.? ? 11/13/2021 now with light pink urine in the catheter. Will hold apixaban until that clears. ? ? Active Problems ? Hyperkalemia, POA Tx'ed with Loshreyasfl, resolved, monitor ? Acute urinary obstruction, Present on admission,?Resolved. In setting of acute prostatitis likely with acute obstruction, has now Galdamez, urine flowing, initially hematuria, clearing slowly -Patient had feelings of constipation for multiple days use or months -Patient was thought to be constipated was prescribed laxatives however despite having multiple bowel movements patient continued at the same feelings of abdominal fullness -Patient became concerned came to the hospital for evaluation where blood work was performed and showed the patient had acute kidney injury secondary to urinary obstruction -CT scan showed that there is bladder outlet obstruction presumably caused by prostate enlargement? -Patient had Galdamez catheter placed and since then had 1500 immediately returned of urine -Nephrology was consulted current recommendations for patient to be monitored with Galdamez catheter and have his renal function assessed ? Acute prostatitis with hematuria,Present on admission, Improved -??Blood PCR pos for Staph Epi but likely contaminant unless 2-4/4 bottles all come back positive Hematuria which also could be traumatic, is clearing slowly - Ceftriaxone -11/10. Vancomycin 11/11 - 11/12. - Augmentin for E. Coli UTI starting 11/13/21.? ? Holding apixaban, which may need to be stopped if its related to the hematuria. ?? Prostatic Hypertrophy, likely Benign, complicated with acute prostatitis On Tamsulosin, 0.8mg nightly, consider Finasteride, may need to discuss with Urology ? Hyponatremia Mild, received IV Saline solutions, monitor ? Anemia of unknown etiology most likely acute posthemorrhagic due to hematuria Mild, in setting of hematuria, monitor? ? Atrial fibrillation, persistent, longstanding Not in RVR, on Apixaban, Metoprolol, rate is controlled ? 11/13 apixaban on hold due to hematuria. ? Essential hypertension On Metoprolol, ?? Hyperkalemia, POA Tx'ed with Lokelma, resolved, monitor ? Neuropathy -Chronic condition present on admission? -We will continue patient's home dose of Cymbalta and gabapentin? Discharge Providers Provider Date of admission: 11/07/21 18:11 Discharge Date: 11/08/21 Primary care physician: Shane Huber MD Consults: 11/07/21 18:39 Consult to Occupational Therapy Evaluate & Treat Comment: Physician Instructions: Evaluate and treat Consult to Physical Therapy Evaluate & Treat Comment: Physician Instructions: Evaluate and Treat 11/07/21 21:09 Consult to Respiratory Therapy Evaluate & Treat Comment: may need CPAP MARGARITO Physician Instructions: Evaluate and treat Discharge provider: Oscar Rosenthal DO Summary Hospital Course Discharge Diagnosis: 1. Severe vertigo with weakness, acute on chronic, present on admission 2. Hypotension, likely medication-induced, in the setting of essential hypertension, and pacemaker placement acute on chronic, present on admission 3. Mild JON likely prerenal, acute, present on admission 4. Mild anemia, with thrombocytopenia, unknown etiology, acute, present on admission 5. Atrial fibrillation on Eliquis, rate controlled with pacemaker, chronic, present on admission 6. Congestive heart failure, with worsening cardiomyopathy, chronic, present on admission 7. Hx of quintuple CABG 2003, remote, CAD of the [place] artery, chronic, present on admission 8. Essential tremor, chronic, stable, present on admission 9. Bipolar disorder, chronic, present on admission Hospital Course: Admitted for vertigo, lightheadedness and fatigue. Found to be hypotensive due to being on several cardiac medications which were held and his BP improved and his symptoms resolved. Obtained echo which showed lowered EF of 25% from prior. 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 Lasix was held on discharge. Time Spent with Patient Time spent: Greater than 30 minutes Exam Vital Signs (past 8 hours): Oxygen Delivery Method Room Air Oxygen Flow Rate 0 Narrative Exam Narrative: General:? Patient is well developed and well nourished, in no distress at this time. HEENT:? Normocephalic, atraumatic, extraocular muscles intact, oral pharynx is clear and mucous membranes are moist. Neck: supple and symmetric, trachea is midline, no cervical adenopathy. Negative for JVD Chest:? Normal AP diameter and contour without kyphoscoliosis, no tachypnea, equal chest rise bilaterally. Lungs:? CTA b/l no wheezing rhonchi or rales. Cardio:?RRR no m/r/g. Abdomen: S NT ND. No CVA tenderness. Musculoskeletal:? Muscle strength and tone are equal within normal limits, no deformity. Extremities: No edema or joint effusions. No cyanosis or clubbing. Skin:? Pale,? Warm to touch,dry and intact without rashes, ulcerations or petechiae.? Neuro:? Alert and orientated x3,? sensation to touch intact in all extremities, no gross deficits noted of cranial nerves. Reports blurred vision but not double vision. Diffuse generalized weakness improved, remains +5/5 in all extremities Psych:? Patient has a well-kept appearance, appropriate affect, mental status attitude thought context and judgment are appropriate for age. Objective Labs Result Diagrams: 11/08/21 05:25 11/08/21 05:25 [facility] Medical History Atrial fibrillation with controlled ventricular rate Bipolar disorder Cardiomyopathy CHF (congestive heart failure) Coronary artery disease due to lipid rich plaque Essential hypertension Essential tremor GERD (gastroesophageal reflux disease) Hyperlipidemia Obstructive sleep apnea Pacemaker Surgical History Hx of CABG Status post appendectomy Status post coronary artery bypass graft Family History Sister Age: 79 COPD (chronic obstructive pulmonary disease) Spouse Advanced dementia Social History household members: spouse Smoking Status: Former smoker alcohol intake: current Discharge Plan Discharge Plan Patient Disposition: Home Provider Discharge Comment: You came in with dizziness and lightheadedness which I believe is due to low blood pressure from dehydration as your BP was 109/60. You received IV fluids and your symptoms improved and you did well with PT. I am holding your lasix until you can follow-up with your overhead crane inspector. We also got a new echo of your heart which shows worsened heart failure but not by much. I have provided a print out of this to show your overhead crane inspector at your next visit. Please attempt to stay as hydrated as possible. Discharge orders & Medications Prescriptions: Continued lamotrigine [Lamictal] 200 MG tablet 200 mg PO BID Qty: 180 3RF atorvastatin 20 mg tablet 20 mg PO DAILY Label Comments: TAKE ONE TABLET BY MOUTH ONE TIME DAILY bupropion HCl 75 mg tablet 75 mg PO BID Label Comments: Take one tablet by mouth twice a day Eliquis 5 mg tablet 5 mg PO BID Label Comments: TAKE ONE TABLET BY MOUTH TWICE DAILY topiramate 200 mg tablet 200 mg PO BID Label Comments: TAKE ONE TABLET BY MOUTH TWICE DAILY Discontinued furosemide 40 MG tablet 40 mg PO Q DAY Qty: 30 0RF No Action losartan 25 mg tablet 12.5 mg PO DAILY 30 Days Qty: 15 0RF metoprolol succinate 25 mg tablet extended release 24 hr 12.5 mg PO DAILY 30 Days Qty: 15 0RF Follow up/Referrals: Shane Huber MD [Primary Care Provider] - Visit Report/Discharge Packet Instructions: DI for Heart Failure Discharge Data Primary Care Provider: Shane Huber V Attending Provider: Oscar Rosenthal VTE Deep Vein Thrombosis/Pulmonary Embolism Present on Admission: No
--- NOTE | 2021-11-08 11:26 | CM.DANOTE ---
DCP: Case received, EMR reviewed and met with patient. Introduced self and role. Was able to obtain information regarding patient's baseline activity level prior to hospitalization, as well as her current living situation. DCP assessment completed with information currently available. Patient is an 81 year old male who admitted yesterday afternoon to the care of the hospitalist team. PCP: Dr. Flor. Payer: confirmed: Medicare/[facility]. Patient came to the hospital via private vehicle secondary to having some light headed episodes, double vision. According to notes, patient was visiting [facility] with patient's spouse (and her caregiver), looking for rocks, and patient developed some weakness and dizziness to the point that he was unable to stand up. Patient was noted to have mild JON, anemia and dehydration. Patient will also be working with P.T today. Met with patient in his room. He was in bed, alert and oriented. Confirmed that patient resides in [place] with his spouse, Kacy, who has dementia, and her caregiver. At his baseline, he is independent. P: DCP to continue to follow. Patient should be able to go home when he is deemed medically stable, and he will also work with P.T. Delia Chatman RN/Rehabilitation Tech Discharge Planning/Care Management CM Discharge Assessment Start: 11/08/21 11:22 Freq: Status: Active Protocol: Document 11/08/21 11:22 (Rec: 11/08/21 11:25 [id number]) Discharge Planning Assessment Assigned Cougar Hunter Delia Chatman RN/Rehabilitation Tech Advance Directives? No History Provided By Patient,Medical Record Prior Living Arrangements House Household Members spouse Type of transporation used prior to Drives own vehicle admit Independent with ADL's Yes Is patient alert and oriented? Yes Caregiver for Another Yes: Patient's spouse has dementia, but has caregiver Barriers to Discharge No Discharge Plan Home Transportation Arrangement Caregiver Referrals Initiated None needed Whiteboard Updated in Patient Room with Yes name and ext. # of [place]ar [place] Review Status In Process Next Review Type Continued Stay Review
[2021-11-08 12:51] VITALS: BP 109/59; PULSE 70; RESP 18; TEMP 36.2; O2SAT 98
--- NOTE | 2021-11-08 15:03 | PC.NURSE ---
Discharge Note Patient A&O, VSS, RA, no complaints of pain/discomfort. Discharge packet reviewed with patient, all questions/concerns addressed. PIV/TELE discontinued. Patient able to dress self and pack all belongings.
== END 2021-11-08 13:30 | disposition home or self-care (01) ==
LOC: ED 17:12 → AC 18:12
PROVIDERS: Nurse Practitioner Family; Admitting Provider Student in an Organized Health Care Education/Training Program; Emergency Provider Family Medicine Addiction Medicine; Family Provider Psychiatry & Neurology Neurology; PCP Internal Medicine; Referring Provider Family Medicine Addiction Medicine; Visit Provider Student in an Organized Health Care Education/Training Program
DX: R42 Dizziness and giddiness (principal); I95.9 Hypotension, unspecified; N17.9 Acute kidney failure, unspecified; D69.6 Thrombocytopenia, unspecified; D64.9 Anemia, unspecified; I48.20 Chronic atrial fibrillation, unspecified; I50.9 Heart failure, unspecified; I42.9 Cardiomyopathy, unspecified; I25.10 Atherosclerotic heart disease of native coronary artery without angina pectoris; I11.0 Hypertensive heart disease with heart failure; R25.1 Tremor, unspecified; F31.9 Bipolar disorder, unspecified; R53.1 Weakness; E78.5 Hyperlipidemia, unspecified; K21.9 Gastro-esophageal reflux disease without esophagitis; Z95.0 Presence of cardiac pacemaker; Z79.01 Long term (current) use of anticoagulants; Z95.1 Presence of aortocoronary bypass graft; Z20.822 Contact with and (suspected) exposure to COVID-19
CPT/HCPCS: 36415; 70450; 71045; 80048; 80053; 80061; 81001; 82550; 82553; 82607; 82746; 83036; 83540; 83550; 83735; 83880; 84443; 84484; 85014; 85018; 85025; 85610; 85730; 87635; 93005; 93307; 96372; 97165; 99284; 99285; C9803; G0378; J1644

== ENCOUNTER 2021-11-10 10:42 | Observation (INO) | payer MEDICARE, OTHER, SELFPAY ==
[2021-11-07 18:18] VITALS: BMI 24.9
[2021-11-10] VITALS (14 sets, daily range): BP systolic 111–127; BP diastolic 52–66; PULSE 64–73; RESP 16–23; TEMP 36.3–36.8; O2SAT 97–100; BMI 22.8; BMI 22.7
--- NOTE | 2021-11-10 11:14 | ED_ITS ---
HPI - Neuro Symptoms/Deficit General Chief Complaint: Neuro Symptoms/Deficit Stated Complaint: Double vision, weakness- sent over by Eye docs Time Seen by Provider: 11/10/21 10:47 Source: patient Mode of arrival: Wheelchair Limitations: no limitations History of Present Illness HPI Narrative: Patient is an 81-year-old male. History of high blood pressure. Also has a history of congestive heart failure. Has a pacemaker in place. Is on Eliquis. On Sunday of this week started to have issues with double vision and weakness in his legs. Was seen here in the emergency department earlier this week and was admitted overnight and was subsequently discharged home. He had medication changes made during this time as there was some thought that maybe this was a orthostatic issue given the Lasix that he was on. He was also changed on some of his other blood pressure medication. He comes to the emergency department today for worsening of his symptoms. He states that since Sunday his symptoms have not gone away however today they got acutely worse. He feels like his double vision is worse. He states that now he can not stand without assistance. He went to the eye doctor this morning to talk to them about his double vision was sent to the ER. He is no chest pain. No shortness of breath. No numbness and tingling in his arms are legs. No abdominal pain. No change in urine nor bowel movements. No rashes. He is never had a stroke in the past per his report. 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 On Anticoagulants: Yes (eliquis) Related Data Home Medications Medication Instructions Recorded Confirmed omeprazole 20 mg capsule,delayed 20 mg PO DAILY ##0 04/10/16 11/07/21 release carvedilol 6.25 mg tablet (Coreg) 6.25 mg PO DAILY ##0 08/15/16 11/07/21 apixaban 5 mg tablet (Eliquis) 5 mg PO BID 11/07/21 11/07/21 atorvastatin 20 mg tablet 20 mg PO DAILY 11/07/21 11/07/21 bupropion HCl 75 mg tablet 75 mg PO BID 11/07/21 11/07/21 losartan 25 mg tablet 25 mg PO DAILY 11/07/21 11/07/21 metoprolol succinate 25 mg 25 mg PO BID 11/07/21 11/07/21 tablet,extended release 24 hr spironolactone 25 mg tablet 12.5 mg PO DAILY 11/07/21 11/07/21 topiramate 200 mg tablet 200 mg PO BID 11/07/21 11/07/21 Previous Rx's Medication Instructions Recorded lamotrigine 200 mg tablet 200 mg PO BID #180 tabs 05/31/17 (Lamictal) Allergies Allergy/AdvReac Type Severity Reaction Status Date / Time No Known Drug Allergies Allergy Verified 11/10/21 10:53 Review of Systems Constitutional Constitutional: Denies chills, Denies fatigue, Denies fever(s), Denies headache(s) and Reports weakness Eyes Eyes: Reports diplopia ENT Ears, Nose, Mouth, and Throat: Denies vertigo, Denies dizziness, Denies headache(s) and Denies sore throat Cardiovascular Cardiovascular: Denies chest pain, Denies rapid heart rate, Denies irregular heart rhythm, Denies lightheadedness and Denies dyspnea Respiratory Respiratory: Denies cough and Denies dyspnea Gastrointestinal Gastrointestinal: Denies abdominal pain, Denies nausea and Denies vomiting Genitourinary Genitourinary: Denies dysuria Musculoskeletal Musculoskeletal: Denies arthralgias, Denies joint swelling, Denies numbness and Denies tingling Comments: Lower extremity weakness Integumentary/Breasts Skin/Breast: Denies rash Neurologic Neurologic: Denies abnormal speech, Denies vertigo, Denies dizziness, Denies headache(s), Denies numbness, Reports other visual disturbances, Denies tingling and Reports weakness Psychiatric Psychiatric: Reports system reviewed and no additional complaints, except as documented Endocrine Endocrine: Denies fatigue Hematologic/Lymphatic On Anticoagulants: Yes (eliquis) Allergic/Immunologic Allergic/Immunologic: Reports system reviewed and no additional complaints, except as documented Patient History Medical History Atrial fibrillation with controlled ventricular rate Bipolar disorder Cardiomyopathy CHF (congestive heart failure) Coronary artery disease due to lipid rich plaque Essential hypertension Essential tremor GERD (gastroesophageal reflux disease) Hyperlipidemia Obstructive sleep apnea Pacemaker Surgical History (Updated 11/08/21 @ 01:03 by DAMARIS Hernandes) Hx of CABG Status post appendectomy Status post coronary artery bypass graft Family History (Updated 11/08/21 @ 01:05 by DAMARIS Hernandes) Sister Age: 79 COPD (chronic obstructive pulmonary disease) Spouse Advanced dementia Social History household members: spouse Smoking Status: Never smoker alcohol intake: never Smoking Status: Never smoker alcohol intake frequency: holidays/special occasions only Substance Use Type: does not use Exam Initial Vital Signs Initial Vital Signs: Vital Signs Temperature 97.9 F 11/10/21 10:48 Pulse Rate 69 11/10/21 10:48 Respiratory Rate 20 11/10/21 10:48 Blood Pressure 117/57 L 11/10/21 10:48 Pulse Oximetry 100 11/10/21 10:48 Oxygen Delivery Method 11/10/21 10:48 Const General: cooperative, healthy appearing, comfortable and well developed HENCA Head: normal to inspection and normocephalic Eyes Other: Pupils equal round reactive 4 mm bilateral. Extraocular movements intact. No nystagmus. No conjunctivitis. Chest Chest: normal inspection of the chest Resp Effort & Inspection: normal respiratory effort Auscultation: clear to auscultation bilaterally Cardio Rate: regular rate Rhythm: regular rhythm GI Inspection: normal to inspection Palpation: soft and No tender Skin General: no rashes or lesions noted Neuro General: patient alert, patient awake, patient oriented x3 and moves all extremities Cognition: normal cognition Speech: speech normal Sensory Exam: no sensory deficits noted Other: Subjective binocular and monocular double vision. Extraocular muscles are i ntact. Remainder of his cranial nerves are intact. Patient does have ataxia with ambulating. Extrem General: normal to inspection and capillary refill normal Psych Appearance: grossly normal and well kempt Scores GCS [place] coma scale eye opening: Spontaneous [place] coma scale verbal response: Orientated [place] coma scale motor response: Obey commands [place] coma scale total score: 15 NIH Stroke Scale Level of Conciousness: Alert, keenly responsive Ask month/age: Answers both questions correctly. Open/close eyes, close hand: Performs both tasks correctly Best gaze horizontal: Normal Visual [place]: No visual loss Facial palsy: Normal symetrical movement Left arm drift: No drift for full 10 sec Right arm drift: No drift for full 10 sec Left leg drift: No drift for full 5 sec Right leg drift: No drift for full 5 sec Limb ataxia: Absent Sensory on face/arms/legs: Normal, no sensory loss Best language: No aphasia, normal Dysarthria: Normal Extinction or inattention: No abnormality Total NIH Stroke scale score: 0 Course Orders Ordered: ED Orders 11/10/21 10:56 EKG-12 Lead Stat 11/10/21 11:15 CT head/brain wo con Stat 11/10/21 12:01 Complete Blood Count AUTO DIFF Stat Comprehensive Metabolic Panel Stat Ethanol (ETOH) Stat Lipase Stat Magnesium Stat NT-proBNP (BNP-Adult 18+) Stat Partial Thromboplastin Time Stat Phosphorous Stat Prothrombin Time INR Stat Thyroid Stimulating Hormone Stat Troponin & CK Cardiac Panel Stat 11/10/21 12:45 Consult to Physical Therapy Evaluate & Treat 11/10/21 12:46 Consult to Hospitalist Service Stat Vital Signs Vital signs: Vital Signs - 8 hr 11/10/21 10:48 11/10/21 10:49 11/10/21 10:49 Temperature 97.9 F Pulse Rate 69 73 Respiratory Rate 20 Blood Pressure 117/57 L 117/57 L Pulse Oximetry 100 100 Oxygen Delivery Method Room Air 11/10/21 11:00 11/10/21 11:00 11/10/21 11:30 Temperature Pulse Rate 69 69 Respiratory Rate 22 18 Blood Pressure 127/57 L Pulse Oximetry 100 100 Oxygen Delivery Method 11/10/21 12:00 11/10/21 12:30 11/10/21 13:00 Temperature Pulse Rate 69 69 69 Respiratory Rate 20 18 23 Blood Pressure Pulse Oximetry 100 100 100 Oxygen Delivery Method MDM - Neuro Symptoms/Deficit Lab Data Result diagrams: 11/10/21 12:01 11/10/21 12:01 Labs: Lab Results 11/10/21 11/10/21 11/10/21 Range/Units 12:01 12:01 12:01 WBC 5.1 (4.5-11.0) X10^3/uL RBC 3.48 L (4.5-5.9) X10^6/uL Hgb 12.0 L (13.5-17.5) g/dL Hct 35.9 L (41-53) % MCV 103.3 H (80-100) fL MCH 34.4 H (26-34) PG MCHC 33.3 (30-36) % RDW 13.7 (11.6-14.8) % Plt Count 139 L (150-400) X10^3/uL Neut % (Auto) 65.1 (50-75) % Lymph % (Auto) 15.6 L (25-40) % [place] % (Auto) 14.4 H (3-14) % Eos % (Auto) 4.1 H (2-4) % Baso % (Auto) 0.8 (0-2) % Neut # (Auto) 3300 (4573-2577) /uL Lymph # (Auto) 800 L (4712-2205) /uL [place] # (Auto) 700 (0-900) /uL Eos # (Auto) 200 (0-450) /uL Baso # (Auto) 0 (0-100) /uL PT 20.6 H (10.1-12.7) SECONDS INR 1.8 H (0.9-1.3) APTT 36 (26-36) SECONDS Sodium 140 (137-145) mmol/L Potassium 4.3 (3.4-5.1) mmol/L Chloride 113 H (98-107) mmol/L Carbon Dioxide 22 (22-32) mmol/L BUN 18 (9-20) mg/dL Creatinine 1.22 (0.66-1.25) mg/dL Estimated GFR 60 (>60) mL/min BUN/Creatinine Ratio 14.8 (6-22) Glucose 95 (80-110) mg/dL Calcium 9.0 (8.4-10.2) mg/dL Phosphorus (2.3-3.7) mg/dL Magnesium 2.1 (1.6-2.3) mg/dL Total Bilirubin 0.4 (0.2-1.3) mg/dL AST 36 (17-59) IU/L ALT 25 (<50) IU/L Alkaline Phosphatase 77 (38-126) U/L Total Creatine Kinase (55-170) U/L CK-MB (CK-2) CK-MB (CK-2) Rel Index Troponin I (0.01-0.034) ng/mL NT-Pro-B Natriuret Pep (<450) pg/mL Total Protein 6.7 (6.3-8.2) g/dL Albumin 3.9 (3.5-5.0) g/dL Globulin 2.8 (1.7-4.1) g/dL Albumin/Globulin Ratio 1.4 (1.0-2.8) Lipase 78 (23-300) U/L TSH (0.47-4.68) uIU/mL Ethyl Alcohol < 10 ( - 10) mg/dL 11/10/21 11/10/21 Range/Units 12:01 12:01 WBC (4.5-11.0) X10^3/uL RBC (4.5-5.9) X10^6/uL Hgb (13.5-17.5) g/dL Hct (41-53) % MCV (80-100) fL MCH (26-34) PG MCHC (30-36) % RDW (11.6-14.8) % Plt Count (150-400) X10^3/uL Neut % (Auto) (50-75) % Lymph % (Auto) (25-40) % [place] % (Auto) (3-14) % Eos % (Auto) (2-4) % Baso % (Auto) (0-2) % Neut # (Auto) (0299-2426) /uL Lymph # (Auto) (3895-2883) /uL [place] # (Auto) (0-900) /uL Eos # (Auto) (0-450) /uL Baso # (Auto) (0-100) /uL PT (10.1-12.7) SECONDS INR (0.9-1.3) APTT (26-36) SECONDS Sodium (137-145) mmol/L Potassium (3.4-5.1) mmol/L Chloride (98-107) mmol/L Carbon Dioxide (22-32) mmol/L BUN (9-20) mg/dL Creatinine (0.66-1.25) mg/dL Estimated GFR (>60) mL/min BUN/Creatinine Ratio (6-22) Glucose (80-110) mg/dL Calcium (8.4-10.2) mg/dL Phosphorus 3.7 (2.3-3.7) mg/dL Magnesium (1.6-2.3) mg/dL Total Bilirubin (0.2-1.3) mg/dL AST (17-59) IU/L ALT (<50) IU/L Alkaline Phosphatase (38-126) U/L Total Creatine Kinase 87 (55-170) U/L CK-MB (CK-2) TNP CK-MB (CK-2) Rel Index TNP Troponin I < 0.012 (0.01-0.034) ng/mL NT-Pro-B Natriuret Pep 2640 H (<450) pg/mL Total Protein (6.3-8.2) g/dL Albumin (3.5-5.0) g/dL Globulin (1.7-4.1) g/dL Albumin/Globulin Ratio (1.0-2.8) Lipase (23-300) U/L TSH 1.26 (0.47-4.68) uIU/mL Ethyl Alcohol ( - 10) mg/dL Point of Care Testing Glucose POC [address] scan - head: Radiologist's Impression: [address] [address] [address] Scan Report Signed Patient: Heron Soto MR#: [id number] : 1940 Acct:[id number] Age/Sex: 81 / M Date of Service: 11/10/21 Loc: ED Accession Number: [id number] ?? Procedure: CT head/brain wo con Ordering Provider: Obdulio Lugo D.O. PROCEDURE:? CT HEAD/BRAIN WO CON ? INDICATIONS:? Double vision/weakness worsening ? TECHNIQUE:? Noncontrast 4.5 mm thick angled axial sections acquired from the foramen magnum to the vertex, with coronal and sagittal reformats.? For radiation dose reduction, the following was used:? automated exposure control, adjustment of mA and/or kV according to patient size.? ? COMPARISON:? [facility], CT, CT HEAD/BRAIN WO CON, 11/07/2021, 14:29. ? FINDINGS:? Image quality:? Excellent.? ? CSF spaces:? Basal cisterns are patent.? No extra-axial fluid collections.? The ventricles are symmetric in size and shape.? ? Brain:? No intracranial bleeds or masses.? There is cerebral volume loss for age, with resultant ventricular and sulcal prominence.? There are periventricular and deep white matter chronic small vessel ischemic changes.? There is intracranial internal carotid artery atherosclerosis.? ? Skull and face:? Calvarium and visualized facial bones appear intact, without suspicious lesions.? ? Sinuses:? Visualized sinuses and mastoids are clear.? ? IMPRESSION:? No acute finding. ? ? Dictated by: Christoph Lindquist M.D. on 11/10/2021 at 11:35 ? ? Approved by: Christoph Lindquist M.D. on 11/10/2021 at 11:36?? ECG Data Attestation: I personally reviewed and interpreted this ECG as follows: Interpretation: Ventricular paced Rate is 70 MDM Narrative Medical decision making narrative: Patient has had symptoms for the past 4 Days But it did acutely worsen earlier today. He currently can not stand without 2 person assistance. He has an NIH score of 0. His visual symptoms are subjective but are binocular. Patient can not get an MRI because of his pacemaker. He is not hypotensive. Afebrile. I do suspect CVA add potentially worsening today. Discussed the case with Dr. Harp. Will admit for further evaluation and treatment. I also discussed this with the patient. He expressed understanding agreement as well. Discharge Plan Departure Patient Disposition: Admitted As Inpatient Clinical Impression: CVA (cerebral vascular accident), Diplopia, Ataxia Admit Date/Time: 11/10/21 13:11 Admit Provider: Janusz Harp
--- NOTE | 2021-11-10 11:15 | DI.CT.S_ITS ---
PROCEDURE: CT HEAD/BRAIN WO CON INDICATIONS: Double vision/weakness worsening TECHNIQUE: Noncontrast 4.5 mm thick angled axial sections acquired from the foramen magnum to the vertex, with coronal and sagittal reformats. For radiation dose reduction, the following was used: automated exposure control, adjustment of mA and/or kV according to patient size. COMPARISON: [facility], CT, CT HEAD/BRAIN WO CON, 11/07/2021, 14:29. FINDINGS: Image quality: Excellent. CSF spaces: Basal cisterns are patent. No extra-axial fluid collections. The ventricles are symmetric in size and shape. Brain: No intracranial bleeds or masses. There is cerebral volume loss for age, with resultant ventricular and sulcal prominence. There are periventricular and deep white matter chronic small vessel ischemic changes. There is intracranial internal carotid artery atherosclerosis. Skull and face: Calvarium and visualized facial bones appear intact, without suspicious lesions. Sinuses: Visualized sinuses and mastoids are clear. IMPRESSION: No acute finding. Dictated by: Christoph Lindquist M.D. on 11/10/2021 at 11:35 Approved by: Christoph Lindquist M.D. on 11/10/2021 at 11:36
[2021-11-10 12:20] LABS: Add Manual Diff / Slide Review NO; Basophils Absolute Auto 0 /uL (0-100); Basophils Percent Auto 0.8 % (0-2); Eosinophils Absolute Auto 200 /uL (0-450); Eosinophils Percent Auto 4.1 % (2-4); Hematocrit 35.9 % (41-53); Lymphocytes Absolute Auto 800 /uL (1100-4500); Lymphocytes Percent Auto 15.6 % (25-40); Mean Corpuscular HGB Conc 33.3 % (30-36); Mean Corpuscular Hemoglobin 34.4 PG (26-34); Mean Corpuscular Volume 103.3 fL (80-100); Monocytes Absolute Auto 700 /uL (0-900); Monocytes Percent Auto 14.4 % (3-14); Neutrophils Absolute Auto 3300 /uL (1500-7000); Neutrophils Percent Auto 65.1 % (50-75); Platelet Count 139 X10^3/uL (150-400); Red Blood Cell Count 3.48 X10^6/uL (4.5-5.9); Red Cell Distribution Width 13.7 % (11.6-14.8); White Blood Cell Count 5.1 X10^3/uL (4.5-11.0)
[2021-11-10 12:26] LABS: INR 1.8 (0.9-1.3); Prothrombin Time 20.6 SECONDS (10.1-12.7)
[2021-11-10 12:29] LABS: PTT Partial Thromboplastin Tim 36 SECONDS (26-36)
[2021-11-10 12:30] LABS: Creatine Kinase 87 U/L (55-170); Phosphorous 3.7 mg/dL (2.3-3.7)
[2021-11-10 12:32] LABS: Alanine Aminotransferase 25 IU/L (<50); Albumin 3.9 g/dL (3.5-5.0); Albumin Globulin Ratio 1.4 (1.0-2.8); Alkaline Phosphatase 77 U/L (38-126); Aspartate Aminotransferase 36 IU/L (17-59); BUN Creatinine Ratio 14.8 (6-22); Bilirubin Total 0.4 mg/dL (0.2-1.3); Blood Urea Nitrogen 18 mg/dL (9-20); Carbon Dioxide 22 mmol/L (22-32); Chloride 113 mmol/L (98-107); Estimated Glomerular Filt Rate 60 mL/min (>60); Ethanol (ETOH) < 10 mg/dL; Globulin 2.8 g/dL (1.7-4.1); Glucose 95 mg/dL (80-110); HEMOLYSIS < 15 (0-50); Lipase 78 U/L (23-300); Magnesium 2.1 mg/dL (1.6-2.3); Potassium 4.3 mmol/L (3.4-5.1); Sodium 140 mmol/L (137-145); Total Protein 6.7 g/dL (6.3-8.2)
[2021-11-10 12:43] LABS: NT-proBNP (BNP-Adult 18+) 2640 pg/mL (<450); Troponin I < 0.012 ng/mL (0.01-0.034)
[2021-11-10 13:13] LABS: Thyroid Stimulating Hormone 1.26 uIU/mL (0.47-4.68)
[2021-11-10 15:00] LABS: COVID19 -Nasal RAPID Negative (Negative)
--- NOTE | 2021-11-10 16:37 | P.HP_ITS ---
History of Present Illness History of Present Illness Date Patient Seen: 11/10/21 Chief complaint: Double vision, weakness- sent over by Eye docs Narrative: Heron Soto is a 81yo male with a history of remote quintuple CABG (2003), hypertension, CHF, CAD of the [place] artery, cardiomyopathy, history of basal cell carcinoma, HLD, bradycardia, bipolar, Gerd, MARGARITO, essential tremor, atrial fibrillation (Coreg, Eliquis, and pacemaker) that presented to the ED with continued diplopia. He was recently admitted for possible TIA but symptoms did improve per patient but this morning he went to visit his opthalmologist and again felt dizzy and had double vision. He denies focal weakness, but feels diffusely weak and had difficulty ambulating. He denies slurred speech or confusion. He denies loss of bowel or bladder. He does not feel like the room is spinning or vertiginous symptoms but is predominantly weak when standing. He has had diarrhea for the past few months, liquidy and brown in appearance, for which he has had reported evaluation by his PCP. Daughter reports a 30 lb weight loss. Symptoms do improve with immodium. He denied abdominal pain or fever. Patient History Medical History Atrial fibrillation with controlled ventricular rate Bipolar disorder Cardiomyopathy CHF (congestive heart failure) Coronary artery disease due to lipid rich plaque Essential hypertension Essential tremor GERD (gastroesophageal reflux disease) Hyperlipidemia Obstructive sleep apnea Pacemaker Surgical History Hx of CABG Status post appendectomy Status post coronary artery bypass graft Family & Social History Family History Sister Age: 79 COPD (chronic obstructive pulmonary disease) Spouse Advanced dementia Social History: household members spouse Prior Living Arrangements House Safety & Behavioral: Feels Safe in Current Yes Environment Been Physically Hurt or No Threatened By a Person Tobacco & Substance use: Tobacco type cigars Smoking Status Former smoker alcohol intake current alcohol intake frequency holiday/special occasion Substance Use Type does not use Meds Home Medications and Allergies Home Medications Medication Instructions Recorded Confirmed Type lamotrigine 200 mg tablet 200 mg PO BID #180 tabs 05/31/17 11/10/21 Rx (Lamictal) apixaban 5 mg tablet (Eliquis) 5 mg PO BID 11/07/21 11/10/21 History atorvastatin 20 mg tablet 20 mg PO DAILY 11/07/21 11/10/21 History bupropion HCl 75 mg tablet 75 mg PO BID 11/07/21 11/10/21 History losartan 25 mg tablet 25 mg PO DAILY 11/07/21 11/10/21 History metoprolol succinate 25 mg 25 mg PO BID 11/07/21 11/10/21 History tablet,extended release 24 hr spironolactone 25 mg tablet 12.5 mg PO DAILY 11/07/21 11/10/21 History topiramate 200 mg tablet 200 mg PO BID 11/07/21 11/10/21 History furosemide 20 mg tablet 20 mg PO DAILY 11/10/21 11/10/21 History Allergies Allergy/AdvReac Type Severity Reaction Status Date / Time No Known Drug Allergies Allergy Verified 11/10/21 10:53 Review of Systems Review of Systems Narrative: All other systems reviewed with the patient and are negative unless otherwise stated. Exam Vital Signs (past 8 hours): - 11/10/21 10:48 11/10/21 10:49 11/10/21 10:49 Temperature 97.9 F Pulse Rate 69 73 Respiratory Rate 20 Blood Pressure 117/57 L 117/57 L Pulse Oximetry 100 100 Oxygen Delivery Method Room Air Oxygen Flow Rate 11/10/21 11:00 11/10/21 11:00 11/10/21 11:30 Temperature Pulse Rate 69 69 Respiratory Rate 22 18 Blood Pressure 127/57 L Pulse Oximetry 100 100 Oxygen Delivery Method Oxygen Flow Rate 11/10/21 12:00 11/10/21 12:30 11/10/21 13:00 Temperature Pulse Rate 69 69 69 Respiratory Rate 20 18 23 Blood Pressure Pulse Oximetry 100 100 100 Oxygen Delivery Method Oxygen Flow Rate 11/10/21 13:30 11/10/21 14:00 11/10/21 14:49 Temperature 97.4 F L Pulse Rate 69 69 64 Respiratory Rate 22 17 19 Blood Pressure 124/64 Pulse Oximetry 99 99 99 Oxygen Delivery Method Oxygen Flow Rate 0 11/10/21 16:11 Temperature Pulse Rate Respiratory Rate Blood Pressure Pulse Oximetry 99 Oxygen Delivery Method Room Air Oxygen Flow Rate Oxygen Delivery Method Room Air Oxygen Flow Rate 0 Narrative Exam Narrative: General:? Patient is well developed and well nourished, in no distress at this time. HEENT:? Normocephalic, atraumatic, extraocular muscles intact, oral pharynx is clear and mucous membranes are moist. Neck: supple and symmetric, trachea is midline, no cervical adenopathy. Negative for JVD Chest:? Normal AP diameter and contour without kyphoscoliosis, no tachypnea, equal chest rise bilaterally. Lungs:? CTA b/l no wheezing rhonchi or rales. Cardio:?RRR no m/r/g. Abdomen: S NT ND. No CVA tenderness. Musculoskeletal:? Muscle strength and tone are equal within normal limits, no deformity. Extremities: No edema or joint effusions. No cyanosis or clubbing. Skin:? Pale,? Warm to touch,dry and intact without rashes, ulcerations or petechiae.? Neuro:? Alert and orientated x3,? sensation to touch intact in all extremities, no gross deficits noted of cranial nerves. Reports double vision. Diffuse generalized weakness but +5/5 Psych:? Patient has a well-kept appearance, appropriate affect, mental status attitude thought context and judgment are appropriate for age. Objective ECG Impression: Biventricular paced rhythm as interpreted by me. Labs Result Diagrams: 11/10/21 12:11/10/21 12:01 Labs: Laboratory Results - last 24 hr 11/10/21 11/10/21 11/10/21 12: 12: 12:01 WBC 5.1 RBC 3.48 L Hgb 12.0 L Hct 35.9 L MCV 103.3 H MCH 34.4 H MCHC 33.3 RDW 13.7 Plt Count 139 L Neut % (Auto) 65.1 Lymph % (Auto) 15.6 L [place] % (Auto) 14.4 H Eos % (Auto) 4.1 H Baso % (Auto) 0.8 Neut # (Auto) 3300 Lymph # (Auto) 800 L [place] # (Auto) 700 Eos # (Auto) 200 Baso # (Auto) 0 PT 20.6 H INR 1.8 H APTT 36 Sodium 140 Potassium 4.3 Chloride 113 H Carbon Dioxide 22 BUN 18 Creatinine 1.22 Estimated GFR 60 BUN/Creatinine Ratio 14.8 Glucose 95 Calcium 9.0 Phosphorus Magnesium 2.1 Total Bilirubin 0.4 AST 36 ALT 25 Alkaline Phosphatase 77 Total Creatine Kinase CK-MB (CK-2) CK-MB (CK-2) Rel Index Troponin I NT-Pro-B Natriuret Pep Total Protein 6.7 Albumin 3.9 Globulin 2.8 Albumin/Globulin Ratio 1.4 Lipase 78 TSH Ethyl Alcohol < 10 SARS-CoV-2 (PCR) 11/10/21 11/10/21 11/10/21 12:01 12:01 14:25 WBC RBC Hgb Hct MCV MCH MCHC RDW Plt Count Neut % (Auto) Lymph % (Auto) [place] % (Auto) Eos % (Auto) Baso % (Auto) Neut # (Auto) Lymph # (Auto) [place] # (Auto) Eos # (Auto) Baso # (Auto) PT INR APTT Sodium Potassium Chloride Carbon Dioxide BUN Creatinine Estimated GFR BUN/Creatinine Ratio Glucose Calcium Phosphorus 3.7 Magnesium Total Bilirubin AST ALT Alkaline Phosphatase Total Creatine Kinase 87 CK-MB (CK-2) TNP CK-MB (CK-2) Rel Index TNP Troponin I < 0.012 NT-Pro-B Natriuret Pep 2640 H Total Protein Albumin Globulin Albumin/Globulin Ratio Lipase TSH 1.26 Ethyl Alcohol SARS-CoV-2 (PCR) Negative Assessment & Plan Assessment & Plan narrative: 1. Diplopia, CVA - suspect acute CVA, possible posterior involvement with dizziness. Unable to perform MRI given PPM in place. Head CT without hemorrhage. - continue home eliquis, as source is likely embolic. - continue PT/OT evaluations 2. Weakness and diarrhea. - suspect in the setting of acute infarct, may be related to recent diarrhea and hypotension given 30 lb weight loss with diarrhea. - hold home BP medications - PT / OT evaluations - rule out c. diff, start immodium if negative for symptom relief. 3. Chronic systolic heart failure - will restart home metoprolol and losartan if able given weakness. Will see if there is benefit currently holding these. Resume likely at lower doses. - hold home aldactone. - no current CHF symptoms. 4. paroxysmal atrial fibrillation, history of bradycardia with PPM placement. - hold beta brendan for now, continue eliquis, and continue telemetry. 5. Bipolar disorder - continue home medications. no psychiatric symptoms currently. Code: Full, surrogate is patient's daughter DVT: On eliquis Dispo: Admit under inpatient status as his stay is expected to exceed two midnights. I have utilized all available immediate resources to obtain, update, or review the patient's current medications. Time Spent With Patient Critical Care time: I spent a total of [] minutes of critical care time on this patient's care today; this time is exclusive of procedural time. Quality VTE Deep Vein Thrombosis/Pulmonary Embolism Present on Admission: No
[2021-11-10] MEDS: lamoTRIgine 100 MG TABLET 200 MG PO (20:51)
[2021-11-10] MEDS: APIXABAN 5 MG TABLET PO (20:52)
[2021-11-10] MEDS: SODIUM CHLORIDE 0.9% FLUSH 10 ML IV (20:52)
[2021-11-10] MEDS: TOPIRAMATE 100 MG TABLET 200 MG PO (20:52)
[2021-11-10] MEDS: buPROPion 75 MG TABLET PO (20:52)
[2021-11-11] VITALS (9 sets, daily range): BP systolic 104–119; BP diastolic 50–59; PULSE 65–101; RESP 16–18; TEMP 36.4–36.9; O2SAT 94–100
[2021-11-11 06:22] LABS: Add Manual Diff / Slide Review NO; Basophils Absolute Auto 0 /uL (0-100); Basophils Percent Auto 0.6 % (0-2); Eosinophils Absolute Auto 200 /uL (0-450); Eosinophils Percent Auto 3.3 % (2-4); Hematocrit 38.4 % (41-53); Hemoglobin 12.9 g/dL (13.5-17.5); Lymphocytes Absolute Auto 1000 /uL (1100-4500); Lymphocytes Percent Auto 15.4 % (25-40); Mean Corpuscular HGB Conc 33.5 % (30-36); Mean Corpuscular Hemoglobin 34.4 PG (26-34); Mean Corpuscular Volume 102.7 fL (80-100); Monocytes Absolute Auto 600 /uL (0-900); Monocytes Percent Auto 8.8 % (3-14); Neutrophils Absolute Auto 4800 /uL (1500-7000); Neutrophils Percent Auto 71.9 % (50-75); Platelet Count 149 X10^3/uL (150-400); Red Blood Cell Count 3.74 X10^6/uL (4.5-5.9); Red Cell Distribution Width 13.8 % (11.6-14.8); White Blood Cell Count 6.7 X10^3/uL (4.5-11.0)
[2021-11-11 06:32] LABS: BUN Creatinine Ratio 16.2 (6-22); Blood Urea Nitrogen 17 mg/dL (9-20); Calcium 9.4 mg/dL (8.4-10.2); Carbon Dioxide 23 mmol/L (22-32); Chloride 112 mmol/L (98-107); Estimated Glomerular Filt Rate > 60 mL/min (>60); Glucose 92 mg/dL (80-110); HEMOLYSIS < 15 (0-50); Magnesium 2.2 mg/dL (1.6-2.3); Potassium 4.4 mmol/L (3.4-5.1); Sodium 141 mmol/L (137-145)
[2021-11-11] MEDS: ATORVASTATIN 20 MG TABLET PO (09:37)
[2021-11-11] MEDS: lamoTRIgine 100 MG TABLET 200 MG PO ×2 (09:37→20:34)
[2021-11-11] MEDS: SODIUM CHLORIDE 0.9% FLUSH 10 ML IV ×2 (09:37→20:35)
[2021-11-11] MEDS: buPROPion 75 MG TABLET PO ×2 (09:37→20:34)
[2021-11-11] MEDS: TOPIRAMATE 100 MG TABLET 200 MG PO ×2 (09:37→20:33)
[2021-11-11] MEDS: APIXABAN 5 MG TABLET PO ×2 (09:37→20:34)
--- NOTE | 2021-11-11 10:04 | OT.IP.EVAL ---
Past Medical History (Last Reviewed 11/10/21 @ 16:37 by Janusz Harp DO) Atrial fibrillation with controlled ventricular rate Bipolar disorder Cardiomyopathy CHF (congestive heart failure) Coronary artery disease due to lipid rich plaque Essential hypertension Essential tremor GERD (gastroesophageal reflux disease) Hyperlipidemia Obstructive sleep apnea Pacemaker Surgical History (Last Reviewed 11/10/21 @ 16:37 by Janusz Harp DO) Hx of CABG Status post appendectomy Status post coronary artery bypass graft Occupational Therapy Inpatient Evaluation/Re-Eval M1 PT/OT-IP Prior Functional Status Start: 11/11/21 10:10 Freq: NEEDED Status: Active Protocol: Document 11/11/21 10:14 [facility] (Rec: 11/11/21 10:59 [facility] [id number]) Medical Review Prior Functional Status Communication independent Mobility and Gait independent with no devices Activities of Daily Living and IADL's Independent with ADL, IADL, drives and helps to take care of his who has dementia. Social History Household Members spouse Living Arrangements House Number of Stairs To Enter/Railing? 2 steps with right rail. Home Environment Standard Height Toilet,Walk in Shower Home Equipment Front Wheel Walker,Raised Toilet Seat w/Armrests,Shower Seat without Backrest,Hand Held Shower,Grab Bars In Shower M2 OT-IP Current Condition Start: 11/11/21 10:10 Freq: Status: Active Protocol: Document 11/11/21 10:14 [facility] (Rec: 11/11/21 10:59 [facility] [id number]) Occupational Therapy Current Condition Current Condition Evaluation Date 11/11/21 Treatment Diagnosis Suspect CVA, diplopia Diagnosis Onset Date 11/10/21 M3 OT- IP Subjective and Pain Start: 11/11/21 10:10 Freq: Status: Active Protocol: Document 11/11/21 10:14 [facility] (Rec: 11/11/21 10:59 [facility] [id number]) OT- Subjective Occupational Therapy Visit Type Type Initial Evaluation Visit Start Time 08:58 Visit Stop Time 10:04 Total Visit Minutes 66 Occupational Therapy Visit Comments Patient Comments Pt agreed to get up. Patient/Caregiver Goals To go home. OT Pain Assessment Pain When Pain Assessed At Rest Pain Present Pain Present Denied Pain M4 OT- IP ADL's Start: 11/11/21 10:10 Freq: Status: Active Protocol: Document 11/11/21 10:14 [facility] (Rec: 11/11/21 10:59 [facility] [id number]) OT [id number] Comments OT Self-Feeding Comments Per pt had to issues while eating his breakfast earlier. OT ADL-Grooming General Evaluation Grooming Ability Independent OT ADL-Oral Care General Eval Oral Care Ability Independent OT ADL-Dressing General Eval Lower Body Dressing Ability Standby Assistance,Minimal Assistance Comments OT Dressing Comments Pt able to waqar/doff his socks while seated. At this time if not using a FWW for balance needs would need RIVKA for balance for LB dressing needs. OT ADL-Toileting General Evaluation Toileting Ability Standby Assistance Comments OT Toileting Comments Pt able to toilet with SBA and use of FWW for balance. OT ADL-Bathing Comments OT Bathing Comments Pt states now open to using the shower stool at home for showers. M5 OT- IP IADL's Start: 11/11/21 10:10 Freq: Status: Active Protocol: Document 11/11/21 10:14 [facility] (Rec: 11/11/21 10:59 [facility] [id number]) OT-Instrumental Activities of Daily Living Deficits IADL Deficits Identified Deficits Home Safety Awareness Awareness of Need for Assistance at Home Good Awareness Ability to Problem Solve Emergency Able to Problem Solve Situations Home Safety Comments Due to pt's decreased dynamic balance, blurred vision and decreased executive functioning, pt will benefit from / assist. Medication Management Medication Management Comments Pt would benefit from supervision for safety. Pt currently sets up his medications in a pill box, but takes his out of the bottles. Money Management Money Management Comments Pt would benefit from supervision. Meal Preparation Meal Preparation Caregiver Provides Assist Aircraft Stress Analyst Aircraft Stress Analyst Caregiver Provides Assist Driving Driving Concerns Identified Regarding Safety M6 OT- IP Functional Cognition Start: 11/11/21 10:10 Freq: Status: Active Protocol: Document 11/11/21 10:14 [facility] (Rec: 11/11/21 10:59 [facility] [id number]) Cognitive Factors Limiting Selfcare Function Cognitive Ability Level of Alertness Alert Patient Orientation Name,Age,Birthday,Month,Date, Year,Day of Week,Place, Situation Ability to Follow Commands Able to Follow One Step Commands Memory Description Short Term Impaired,Working Impaired Safety Awareness No Deficits Noted Problem Solving Ability Needs Assist to Identify Solutions Executive Function Ability Unable to Remember Details Cognitive Tests SLUMS Pt scored 25/30 which implies mild neurocognitive disorder, pt able to recall 14/15 animals in one minute, able to recall 4/5 objects after one minute, no able to say 4 digit numbers backwards, and able to answer 3/4 questions right after a paragraph read. Cognitive Comments Cognitive Assessment Comments Pt a bit forgetful and having difficulty with STM. Pt scored 244 seconds on [place] MAking Part B which implies severe deficits for visual attention, speed of processing, mental flexibility, task switching, executive functioning. Pt needing increased time to give answers for home safety situations. when initially asked, what he would do if he ran out of medications, pt replied, Call 911. Then therapist stated, Are you sure? Pt then able to state, call his pharmacy. OT- Vision and Hearing OT- Vision Assessment Visual Acuity Glasses For Reading Visual Attentiveness WFL Occular Pursuits WFL Visual Convergence WFL Visual Ochoa WFL Diplopia Present Vision Assessment Comments Pt states now has blurred vision for distance. M7 OT- IP Mobility and Balance Start: 11/11/21 10:10 Freq: Status: Active Protocol: Document 11/11/21 10:14 [facility] (Rec: 11/11/21 10:59 [facility] [id number]) OT- Bed Mobility Assessment Rolling Type of Rolling Roll to Left Supine to Sit Supine to Sit Assist Standby Assistance Sit to Supine Sit to Supine Assist Standby Assistance OT-Transfer Assessment Sit to and From Stand Sit to and from Stand Contact Guard Assistance Transfers Transfer Ability Contact Guard Assistance Technique Transfer Destination Bed,Chair Transfer Technique Stand Step Pivot Devices Transfer Assistive Devices Gait Belt,Front Wheeled Walker Comments Mobility Comments BP supine 106/83 , sitting 108 /41, and standing 114/50 and no symptom of dizziness noted. Pt increased time to get out of bed- per pt much harder to do now then before. CGA to stand to FWW. CLose SBA with FWW , pt tends to lean the FWW to the right and needing cues to stay in the middle of the FWW. Attempted to take a few step with out the FWW and pt unable and states feels too unsteady. OT- Balance Assessment Sitting Balance and Reactions Static Sitting Balance Ability Good Dynamic Sitting Balance Ability Fair Standing Balance and Reactions Static Standing Balance Ability Fair Dynamic Standing Balance Ability Poor M8 OT- IP Objective Assessments Start: 11/11/21 10:10 Freq: Status: Active Protocol: Document 11/11/21 10:14 [facility] (Rec: 11/11/21 10:59 [facility] [id number]) OT Gross Range of Motion Upper Extremity Range of Motion ROM Impairments Pt bilateral shoulders 0-95 for shoulder flexion. OT Strength Comments Strength Comments WFL from elbow to distal 5/5, NT in shoulders due to chronic back pain. OT- Coordination Assessment Upper Extremity Finger to Nose Test Within Functional Limits Finger Tapping Test Within Functional Limits Comments Coordination Comments Pt needing slight increased time more than left hand for finger to nose and finger tapping. OT-Muscle Tone Assessment Muscle Tone WNL Yes OT Sensation Assessment Comments Summary Comments Intact for light touch Edema Edema Absent M9 OT- IP Assessment and Plan Start: 11/11/21 10:10 Freq: Status: Active Protocol: Document 11/11/21 10:14 [facility] (Rec: 11/11/21 10:59 [facility] [id number]) OT Summary Assessment and Plan Potential Rehabilitation Potential Good Analytic Complexity at Evaluation Moderate Summary OT Impairments Pain,Balance,Functional Cognition,Functional Mobility, Dressing,Toileting,Bathing, Toilet Transfers,Shower Transfers,Activity Tolerance Progress Towards Goals Slow Progress due to Medical Issues,Slow Progress due to Activity Tolerance,Slow Progress due to Cognition Assessment Summary Pt here for suspected CVA per medical chart and main barriers are steps, decreased balance, decreased executive problem solving, and blurred/ double vision when looking in the distance. Pt now needing use of FWW for balance needs as very unsteady on his feet and is a high fall risk. Pt scored 244 sec. on [place] Making Part B which implies severe deficits for visual attention, speed of processing , executive functioning, task switching, and mental flexibility. Pt at times slow to respond to questions. Prior pt was completely independent per pt and even felt at 90% when leaving the hospital last time for a similar episode and states was back at 100% when he got home. Pt would benefit from acute rehab if able to qualify, however pt at this time insistent of going home to take of his and therefore would suggest for pt to have 24/ available assist and home health. Goals Grooming Goal Independent Dressing Goal Independent Toileting Goal Independent Toilet Transfer Goal Independent Shower Transfer Goal Independent OT-Other Goals Goals based on prior level of function without use of devices. Days to Meet Goals 15 Frequency of Treatment Frequency Of Treatment Once a Day Treatment Plan OT Treatment Plan ADL Training,Functional Cognition Training,Functional Mobility,Patient/Family Education,Discharge Planning Other Treatment Recommendations and Next shower Treatment Focus Discharge Recommendations OT Discharge Recommendations Home with / Assist Available,Home Health,Acute Rehab Home Equipment Needs FWW Transportation Needs at Discharge Private Vehicle,Wheelchair/ Cabulance
--- NOTE | 2021-11-11 12:11 | CM.DANOTE ---
Patient is an 81 yo male who was Readmit on 11/10/21 for Double Vision. Pt has MCR and [employer] for insurance and his PCP is Dr. Shane Huber. EMR was reviewed. Per , pt with hx of CABG, CHF, pacemaker and admitted for ongoing Diplopia and CVA r/o. Pt was recently admitted for TIA workup and discharged back to home 11/07/21. SW met bedside with pt and explained role and he confirms he lives in [place] and is primary CG to his spouse who has dementia and they have a CG that comes in the assist but is not 02/10. Pt's Dtr is local and supportive and works at [employer]. [employer] Consult ordered as pt with ongoing diarrhea and 30 lb weight loss and may meet Inpt criteria for severe calorie malnutrition. OT arrived to complete initial Eval and PT is pending and per OT pt less steady on his feet and memory slower than admission a few days ago but scored 25/30 on SLUMS. May benefit from Acute Inpt Rehab if pt meets criteria. SW called Ann at [facility]pt [facility] and confirmed pt would not need to be Inpt Status to meet criteria and they are willing to review to determine if pt meets Acute rehab qualifications. Request Facesheet, H&P, PT/OT eval, and MAR. NEGAR faxed requested documents to review to determine if pt meets criteria before discussing this option bedside with pt. Plan: SW to follow closely for further PT/OT and for [facility] Acute Rehab review to determine if this could be an option for pt at d/c prior to discussing discharge planning with pt. ЮЛИЯ Bradley Discharge Planning/Care Management CM Discharge Assessment Start: 11/11/21 12:08 Freq: Status: Active Protocol: Document 11/11/21 12:08 [facility] (Rec: 11/11/21 12:11 [id number]) Discharge Planning Assessment Assigned Pig Lead Melter Helper ЮЛИЯ Clayton DPOA/Assigned Designee Name Dtdolores Perry Contact Information [phone] Advance Directives? No Advance Directives on File Yes History Provided By Patient,Medical Record Has Patient been admitted in last 30 Yes days? Comment Here last Nov 07, 2021 a couple days ago for TIA workup Prior Living Arrangements House Household Members spouse Type of transporation used prior to Drives own vehicle admit Independent with ADL's Yes Is patient alert and oriented? Yes: some memory issues now Caregiver for Another Yes: demented spouse DME Already Rented / Owned FWW / Walker Patient/Family Preference Home with Home Health Comment HH vs Acute Rehab Barriers to Discharge No Discharge Plan Home with Home Health Transportation Arrangement Caregiver or Dtr if home or even Acute Rehab Referrals Initiated Other Additional Comment [facility] Acute Rehab reviewing in case pt qualifies and willing to go Whiteboard Updated in Patient Room with Yes name and ext. # of Pig Lead Melter Helper Review Status In Process Please Provide Date Initial DC 11/11/21 Assessment Was Performed Next Review Type Continued Stay Review
--- NOTE | 2021-11-11 15:32 | PT.IIE ---
Current Diagnoses Cerebral infarction, unspecified (11/10/21) Surgical History (Last Reviewed 11/10/21 @ 16:37 by Janusz Harp DO) Hx of CABG Status post appendectomy Status post coronary artery bypass graft Medical History (Last Reviewed 11/10/21 @ 16:37 by Janusz Harp DO) Atrial fibrillation with controlled ventricular rate Bipolar disorder Cardiomyopathy CHF (congestive heart failure) Coronary artery disease due to lipid rich plaque Essential hypertension Essential tremor GERD (gastroesophageal reflux disease) Hyperlipidemia Obstructive sleep apnea Pacemaker Physical Therapy Inpatient Evaluation/Re-Eval M1 PT/OT-IP Prior Functional Status Start: 11/11/21 10:10 Freq: NEEDED Status: Active Protocol: Document 11/11/21 15:32 [facility] (Rec: 11/11/21 15:56 [facility] [id number]) Medical Review Prior Functional Status Medical History Reviewed Yes Diet/Fluid Consistency Regular Communication WFL, reading glasses, had cataract surgery both eyes Mobility and Gait independent with no devices, active in community Activities of Daily Living and IADL's Independent with ADL, IADL, drives and helps to take care of his who has dementia. Prior Functional Level (Other details) Hired someone to mow the grass . His also has a hired caregiver who can do the driving as needed. Social History Household Members spouse Living Arrangements House Number of Floors (Floors) One Floor Number of Stairs To Enter/Railing? 2 steps to enter with one rail Home Equipment Front Wheel Walker Employment Status Retired Additional Social History Comment his has a FWW at home but is not using it so pt can use it as needed at discharge M2 PT-IP Current Condition Start: 11/11/21 15:32 Freq: NEEDED Status: Active Protocol: Document 11/11/21 15:32 [facility] (Rec: 11/11/21 15:56 DL [id number]) Physical Therapy Current Condition Current Condition Evaluation Date 11/11/21 Treatment Diagnosis double vision, CVA, impaired balance and gait Onset Date 11/10/21 M3 PT-IP Subjective Start: 11/11/21 15:32 Freq: NEEDED Status: Active Protocol: Document 11/11/21 15:32 [facility] (Rec: 11/11/21 15:56 DL [id number]) Subjective Physical Therapy Visit Type Type Initial Evaluation Visit Start Time 15:00 Visit Stop Time 15:32 Total Visit Minutes 32 Number of LOGGING SPECIALIST Visits 0 Physical Therapy Visit Comments Patient Comments He reports his vision is still blurry. He describes feeling unsteady in standing and during gait Patient Goals Discharge home M4 PT-IP Mobility and Gait Start: 11/11/21 15:32 Freq: NEEDED Status: Active Protocol: Document 11/11/21 15:32 [facility] (Rec: 11/11/21 15:56 DLM [id number]) PT-Bed Mobility Assessment Rolling Level of Assist Independent Supine to Sit Supine to Sit Independent Sit to Supine Sit to Supine Independent Scooting Scooting to Edge of Bed Independent Scooting Up and Down in Bed Independent PT-Transfer Assessment Sit to and From Stand Sit to and from Stand Independent,Use of Upper Extremities Equipment Transfer Assistive Device None,Gait Belt,Front Wheeled Walker Transfers Transfer Destination Bed Transfer Technique Stand Step Pivot Transfer Ability Level of Assist Standby Assistance,Use of Upper Extremities Comments Mobility Comments He is able to perform sit- stand without device with wide base of support and decreased stability with initial standing. Once standing he can stabalize and resumes a more normal PARADISE. He describes feeling unsteady Gait Assessment Gait Gait Assistance Required: Standby Assistance Distance (Feet) 300 Assistive Devices Assistive Device Gait Belt,Front Wheeled Walker Gait Deviations General Gait Pattern Wide Based Gait Factors Limiting Gait Function Factors Limiting Gait Function Decreased Activity Tolerance, Poor Balance Comments Gait Comments Gait pace is slow but steady. He has a mild ataxia that is managed by UE support on the FWW. Gait trail performed in his room without a device but he demonstrates decreased balance and he widens his PARADISE with decreased stride length. Pt reports he feels safer with the FWW at this time. Stair Climbing Assessment Evaluation Level of Assist On Stairs Standby Assistance Devices Stair Climbing Assistive Devices Left Railing Technique/Endurance Stair Climbing Direction Ascend and Descend Stair Climbing Technique Step Over Step Number of Steps Climbed 3 Query Text: Stair Climbing Set # Repetitions (reps) 2 Comments Stair Climbing Comments one trial of gait with bilateral rails and the second trial with one rail PT-Balance Assessment Sitting Balance and Reactions Static Sitting Balance Ability Good Dynamic Sitting Balance Ability Good Standing Balance and Reactions Static Standing Balance Ability Fair Dynamic Standing Balance Ability Fair Device Used none Balance Tests Single Limb Standing right 5-8 sec, left shows increased sway holds 2-3 sec Romberg increased sway with eyes closed Tandem Standing unable to hold Comments Other Balance Tests/Deviations/Treatment standing in narrow PARADISE with : eyes open and head motions- no LOB M5 PT-IP Objective Assessments Start: 11/11/21 15:32 Freq: NEEDED Status: Active Protocol: Document 11/11/21 15:32 [facility] (Rec: 11/11/21 15:56 DL [id number]) Orientation Orientation/Cognition Level of Alertness Alert Orientation Name,Age,Birthday,Month,Date, Year,Day of Week,Place, Situation Language Function Ability No Deficits Noted Safety Awareness Understands Safety Issues Memory Description No Deficits Noted Comments he appears reluctant to make changes in his life to manage his new deficits, he continues to report blurry vision, no dizziness during this visit Gross Range of Motion Upper Extremity ROM Assessment Within Functional Limits Lower Extremity ROM Assessment Within Functional Limits Strength Upper Extremity Strength Assessment Within Functional Limits Lower Extremity Strength Assessment Within Functional Limits Coordination Assessment Gross Coordination Gross Coordination Impaired Assessment Foot Tapping Test Minimal Impairment Heel on Rey Test Minimal Impairment Coordination Comments mild tremulous movements, mild decreased speed of rapid alternating Sensation Assessment Sensation Gross Sensation WNL Muscle Tone Muscle Tone WNL Yes M6 PT-IP Treatment Start: 11/11/21 15:32 Freq: NEEDED Status: Active Protocol: Document 11/11/21 15:32 [facility] (Rec: 11/11/21 15:56 DL [id number]) Physical Therapy Treatment Education Education Provided Safety Other Treatments Other Treatment Performed pt plans to use his 's walker at discharge since she does not need it. His and her caregiver are visiting at bedside during this visit. M7 PT-IP Assessment and Plan Start: 11/11/21 15:32 Freq: NEEDED Status: Active Protocol: Document 11/11/21 15:32 [facility] (Rec: 11/11/21 15:56 [facility] [id number]) PT Summary Assessment and Plan Potential Rehabilitation Potential Good Status of Condition at Evaluation Evolving Summary Impairments Balance,Coordination,Transfers ,Gait Assessment Summary Mr Soto is alert and resting in bed. He continues to report blurry vision today. No change in his vision with activity. No dizziness during this visit. Clinical testing shows decreased standing balance and decreased coordination that are affecting his gait. He needs a FWW for gait to compensate for his decreased balance at this time. He does not use an assistive device at baseline. He is not cleared to return to driving at this time due to altered vision. He expresses the desire to return home with his . He will need continuing physical therapy to address his new balance and coordination deficits. Recommend he start with home health therapy to assess his home safety and progress to out-pt PT as needed. He will be home bound at discharge since he will not be able to drive. Goals Transfer Goal Independent,Cane,Front Wheeled Walker Gait Goal Independent,Cane,Front Wheel Walker Gait Distance 150 feet Days to Meet Goals 2 Frequency of Treatment Frequency Of Treatment Twice a Day Treatment Plan Physical Therapy Treatment Plan Transfer Training,Gait Training,Therapeutic Exercise, Balance Retraining,Discharge Planning,Neuromuscular Re-ed, Coordination Retraining Other Recommendations and Next Treatment try a cane, focus on improving Focus balance, monitor vision Precautions Other Precautions fall risk Recommendations To Nursing Amount of Assist Needed Standby Assistance Discharge Recommendations PT Discharge Recommendations Home with Assistance,Home Health Transportation Needs at Discharge Private Vehicle
--- NOTE | 2021-11-11 17:19 | PM.PN.1 ---
Subjective Subjective Date Patient Seen: 11/11/21 Interval history: Continues to have weakness overall today, but improved slightly. Feels better. No longer double vision today but has double vision. Exam Vital Signs (past 8 hours): - 11/11/21 11:45 11/11/21 12:00 11/11/21 16:00 Temperature 98.2 F Pulse Rate 70 Respiratory Rate 18 Blood Pressure 119/56 L Pulse Oximetry 100 97 99 Oxygen Delivery Method Room Air Room Air 11/11/21 16:07 Temperature 97.8 F Pulse Rate 69 Respiratory Rate 18 Blood Pressure 104/54 L Pulse Oximetry 99 Oxygen Delivery Method Oxygen Delivery Method Room Air Oxygen Flow Rate 0 Narrative Exam Narrative: General:? Patient is well developed and well nourished, in no distress at this time. HEENT:? Normocephalic, atraumatic, extraocular muscles intact, oral pharynx is clear and mucous membranes are moist. Neck: supple and symmetric, trachea is midline, no cervical adenopathy. Negative for JVD Chest:? Normal AP diameter and contour without kyphoscoliosis, no tachypnea, equal chest rise bilaterally. Lungs:? CTA b/l no wheezing rhonchi or rales. Cardio:?RRR no m/r/g. Abdomen: S NT ND. No CVA tenderness. Musculoskeletal:? Muscle strength and tone are equal within normal limits, no deformity. Extremities: No edema or joint effusions. No cyanosis or clubbing. Skin:? Pale,? Warm to touch,dry and intact without rashes, ulcerations or petechiae.? Neuro:? Alert and orientated x3,? sensation to touch intact in all extremities, no gross deficits noted of cranial nerves. Reports blurred vision but not double vision. Diffuse generalized weakness improved, remains +5/5 Psych:? Patient has a well-kept appearance, appropriate affect, mental status attitude thought context and judgment are appropriate for age. Objective Labs Result Diagrams: 11/11/21 06:13 11/11/21 06:13 Labs: Laboratory Results - last 24 hr 11/11/21 11/11/21 06:13 06:13 WBC 6.7 RBC 3.74 L Hgb 12.9 L Hct 38.4 L MCV 102.7 H MCH 34.4 H MCHC 33.5 RDW 13.8 Plt Count 149 L Neut % (Auto) 71.9 Lymph % (Auto) 15.4 L [place] % (Auto) 8.8 Eos % (Auto) 3.3 Baso % (Auto) 0.6 Neut # (Auto) 4800 Lymph # (Auto) 1000 L [place] # (Auto) 600 Eos # (Auto) 200 Baso # (Auto) 0 Sodium 141 Potassium 4.4 Chloride 112 H Carbon Dioxide 23 BUN 17 Creatinine 1.05 Estimated GFR > 60 BUN/Creatinine Ratio 16.2 Glucose 92 Calcium 9.4 Magnesium 2.2 PFSH Medical History Atrial fibrillation with controlled ventricular rate Bipolar disorder Cardiomyopathy CHF (congestive heart failure) Coronary artery disease due to lipid rich plaque Essential hypertension Essential tremor GERD (gastroesophageal reflux disease) Hyperlipidemia Obstructive sleep apnea Pacemaker Surgical History Hx of CABG Status post appendectomy Status post coronary artery bypass graft Family History Sister Age: 79 COPD (chronic obstructive pulmonary disease) Spouse Advanced dementia Social History household members: spouse Smoking Status: Former smoker alcohol intake: current Assessment & Plan Assessment & Plan narrative: 1. Diplopia, acute visual changes CVA - suspect acute CVA, possible posterior involvement with dizziness. Unable to perform MRI given PPM in place. Head CT without hemorrhage. - continue home eliquis, as source is likely embolic. - continue PT/OT evaluations 2. Weakness and diarrhea. - suspect in the setting of acute infarct, may be related to recent diarrhea and hypotension from medications given 30 lb weight loss with diarrhea. - continue to hold home BP medications given normotension today. - PT / OT evaluations - rule out c. diff, start immodium if negative for symptom relief. though no diarrheal episodes thus far. - Dietary consultation for possible protein calorie malnutrition. 3. Chronic systolic heart failure - will restart home metoprolol and losartan if able given weakness. Will see if there is benefit currently holding these. Resume likely at lower doses. - hold home aldactone. - no current CHF symptoms. 4. paroxysmal atrial fibrillation, history of bradycardia with PPM placement. - hold beta brendan for now, continue eliquis, and continue telemetry. 5. Bipolar disorder - continue home medications. no psychiatric symptoms currently. Code: Full, surrogate is patient's daughter DVT: On eliquis Dispo: Admit under inpatient status as his stay is expected to exceed two midnights. I have utilized all available immediate resources to obtain, update, or review the patient's current medications. Time Spent With Patient Critical Care time: I spent a total of [] minutes of critical care time on this patient's care today; this time is exclusive of procedural time. Quality VTE Deep Vein Thrombosis/Pulmonary Embolism Present on Admission: No
--- NOTE | 2021-11-11 17:25 | DIET.CONS ---
Addendum entered by Brandi Spears 11/24/21 09:26: Severe chronic protein calorie malnutrition r/t reported stress aeb pt report of chronic diarrhea, nutrition focused physical exam indicating muscle and fat wasting, and severe wt loss >10% in 6 months. Original Note: Dietary Consultation Note Admission Date: 11/10/2021 13:11 Assessment: 81 y/o M admitted with diplopia. RD consulted for reported 30# weight loss. Jairo reports stress with his 's dementia diagnosis. He attributes his weight loss and chronic diarrhea over the last 6 months to this. Despite the reported weight loss from stress, he endorses a good appetite, no skipped meals, no changes to his diet recently. Good PO during admission of 100%. Based on diet recall, very interesting that he has lost so much weight in 6 months. Reports UBW as 79-82kg. This would indicate a 11-14 kg or 14-17% weight loss over 6 months (severe). NFPE: depressed temples and orbital region. Slight boxed shoulder. Diet Recall: 12p: 1 toast and 1egg with 8oz whole milk 3-5p: 1-2 fruit 8p: 2c pasta, 6-7oz pro and salad ; 2c casserole ; steak and 2c potatoes and salad ; 2 tacos Sn: nothing or popcorn bag or 5-6 cookies Ht: 172.72 cm Wt: 67.9 kg BMI: 22.7 UBW: 79-82 kg Last BM: 11/10/21 (11/10/21 14:51) MNA: 11 Stephen Score: 21 Diet: 11/10/21 Lunch Heart Healthy Diet Diet Modifications: Nutrition Percent Meal Consumed 100% 11/11/21 13:29 Percent Meal Consumed 100% 11/10/21 18:00 Labs: RBC 3.74 X10^6/uL (4.5-5.9) L 11/11/21 06:13 Hgb 12.9 g/dL (13.5-17.5) L 11/11/21 06:13 Hct 38.4 % (41-53) L 11/11/21 06:13 Creatinine 1.05 mg/dL (0.66-1.25) 11/11/21 06:13 NT-Pro-B Natriuret Pep 2640 pg/mL (<450) H 11/10/21 12:01 Nutrition Diagnosis: Chronic protein calorie malnutrition r/t reported stress aeb pt report of chronic diarrhea, nutrition focused physical exam indicating muscle and fat wasting, and severe wt loss >10% in 6 months. Interventions: High kcal ONS to support protein needs EER: 101g PRO (1.5g/kg per malnutrition) [id number] kcals (30kcal/kg per BMI) Monitoring/Evaluations: ONS tolerance, wt Electronically Signed by: Brandi Spears 11/11/21 17:25 Clinical Dietitian [address] [address]
[2021-11-12] VITALS: BP 110/55; PULSE 70; RESP 17; TEMP 36.3; O2SAT 96
[2021-11-12 04:00] VITALS: BP 109/60; PULSE 70; RESP 17; TEMP 36.3; O2SAT 99
[2021-11-12 05:48] LABS: Add Manual Diff / Slide Review NO; Basophils Absolute Auto 100 /uL (0-100); Basophils Percent Auto 0.9 % (0-2); Eosinophils Absolute Auto 200 /uL (0-450); Eosinophils Percent Auto 3.8 % (2-4); Hemoglobin 14.1 g/dL (13.5-17.5); Lymphocytes Absolute Auto 1100 /uL (1100-4500); Lymphocytes Percent Auto 18.7 % (25-40); Mean Corpuscular HGB Conc 33.5 % (30-36); Mean Corpuscular Hemoglobin 34.5 PG (26-34); Mean Corpuscular Volume 102.9 fL (80-100); Monocytes Absolute Auto 700 /uL (0-900); Monocytes Percent Auto 11.2 % (3-14); Neutrophils Absolute Auto 3900 /uL (1500-7000); Neutrophils Percent Auto 65.4 % (50-75); Platelet Count 159 X10^3/uL (150-400); Red Blood Cell Count 4.08 X10^6/uL (4.5-5.9); White Blood Cell Count 5.9 X10^3/uL (4.5-11.0)
[2021-11-12 05:55] LABS: BUN Creatinine Ratio 22.6 (6-22); Blood Urea Nitrogen 24 mg/dL (9-20); Calcium 9.4 mg/dL (8.4-10.2); Carbon Dioxide 20 mmol/L (22-32); Chloride 111 mmol/L (98-107); Estimated Glomerular Filt Rate > 60 mL/min (>60); Glucose 98 mg/dL (80-110); HEMOLYSIS 36 (0-50); Magnesium 2.3 mg/dL (1.6-2.3); Potassium 4.2 mmol/L (3.4-5.1); Sodium 139 mmol/L (137-145)
[2021-11-12 07:51] VITALS: BP 112/54; PULSE 70; RESP 18; TEMP 36.1; O2SAT 96
--- NOTE | 2021-11-12 08:35 | P.DS_ITS ---
History of Present Illness History of Present Illness Date Patient Seen: 11/12/21 Time Patient Seen: 08:38 Chief complaint: Double vision, weakness- sent over by [facility] Narrative: Heron Soto is a 81yo male with a history of remote quintuple CABG (2003), hypertension, CHF, CAD of the [place] artery, cardiomyopathy, history of basal cell carcinoma, HLD, bradycardia, bipolar, Gerd, MARGARITO, essential tremor, atrial fibrillation (Coreg, Eliquis, and pacemaker) that presented to the ED with continued diplopia. He was recently admitted for possible TIA but symptoms did improve per patient but this morning he went to visit his opthalmologist and again felt dizzy and had double vision. He denies focal weakness, but feels diffusely weak and had difficulty ambulating. He denies slurred speech or confusion. He denies loss of bowel or bladder. He does not feel like the room is spinning or vertiginous symptoms but is predominantly weak when standing. He has had diarrhea for the past few months, liquidy and brown in appearance, for which he has had reported evaluation by his PCP. Daughter reports a 30 lb weight loss. Symptoms do improve with immodium. He denied abdominal pain or fever. Discharge Providers Provider Date of admission: 11/10/21 13:11 Discharge Date: 11/12/21 Primary care physician: Shane Huber MD Consults: 11/10/21 12:45 Consult to Physical Therapy Evaluate & Treat Comment: Physician Instructions: Evaluate and Treat 11/10/21 16:18 Consult to Occupational Therapy Evaluate & Treat Comment: Physician Instructions: Evaluate and treat Consult to Physical Therapy Evaluate & Treat Comment: Physician Instructions: Evaluate and Treat 11/11/21 10:15 Consult to Dietitian, Adult Routine Comment: Reason For Exam: 30 lb weight loss reported Discharge provider: Janusz Harp DO Summary Hospital Course Discharge Diagnosis: 1. Diplopia, acute visual changes CVA 2. Weakness and diarrhea. 3. Chronic systolic heart failure 4. paroxysmal atrial fibrillation, history of bradycardia with PPM placement. 5. Bipolar disorder Hospital Course: This is an 81 year old male with PMH of chronic systolic heart failure, paroxysmal atrial fibrillation, bradycardia with PPM placement, bipolar disorder who was admitted with diplopia and weakness, suspected in the setting of a rece nt CVA. Patient had been admitted recently for possible TIA. MRI could not be performed due to patient's PPM. His home BP medications were held given concern for possible orthostasis. His symptoms slowly improved over the course of admission, though he still has some blurry vision and not diplopia. He did not wish to go to acute rehab or SNF for continued therapy, choosing to go home instead. He was discharged home with home health for continued PT/OT. His BP was normal off of medications. I recommend continued outpatient evaluation for his chronic diarrhea. For his heart failure will reduce metoprolol and losartan to lower doses. Time Spent with Patient Time spent: Greater than 30 minutes Exam Vital Signs (past 8 hours): - 11/12/21 04:00 11/12/21 07:51 Temperature 97.4 F L 96.9 F L Pulse Rate 70 70 Respiratory Rate 17 18 Blood Pressure 109/60 112/54 L Pulse Oximetry 99 96 Oxygen Flow Rate 0 0 Oxygen Delivery Method Room Air Oxygen Flow Rate 0 Narrative Exam Narrative: General:? Patient is well developed and well nourished, in no distress at this t bharat. HEENT:? Normocephalic, atraumatic, extraocular muscles intact, oral pharynx is clear and mucous membranes are moist. Neck: supple and symmetric, trachea is midline, no cervical adenopathy. Negative for JVD Chest:? Normal AP diameter and contour without kyphoscoliosis, no tachypnea, equal chest rise bilaterally. Lungs:? CTA b/l no wheezing rhonchi or rales. Cardio:?RRR no m/r/g. Abdomen: S NT ND. No CVA tenderness. Musculoskeletal:? Muscle strength and tone are equal within normal limits, no deformity. Extremities: No edema or joint effusions. No cyanosis or clubbing. Skin:? Pale,? Warm to touch,dry and intact without rashes, ulcerations or petechiae.? Neuro:? Alert and orientated x3,? sensation to touch intact in all extremities, no gross deficits noted of cranial nerves. Reports blurred vision but not double vision. Diffuse generalized weakness improved, remains +5/5 in all extremities Psych:? Patient has a well-kept appearance, appropriate affect, mental status attitude thought context and judgment are appropriate for age. Objective Labs Result Diagrams: 11/12/21 05:18 11/12/21 05:18 Labs: Laboratory Results - last 24 hr 11/12/21 11/12/21 05:18 05:18 WBC 5.9 RBC 4.08 L Hgb 14.1 Hct 42.0 MCV 102.9 H MCH 34.5 H MCHC 33.5 RDW 14.0 Plt Count 159 Neut % (Auto) 65.4 Lymph % (Auto) 18.7 L [place] % (Auto) 11.2 Eos % (Auto) 3.8 Baso % (Auto) 0.9 Neut # (Auto) 3900 Lymph # (Auto) 1100 [place] # (Auto) 700 Eos # (Auto) 200 Baso # (Auto) 100 Sodium 139 Potassium 4.2 Chloride 111 H Carbon Dioxide 20 L BUN 24 H Creatinine 1.06 Estimated GFR > 60 BUN/Creatinine Ratio 22.6 H Glucose 98 Calcium 9.4 Magnesium 2.3 PFSH Medical History Atrial fibrillation with controlled ventricular rate Bipolar disorder Cardiomyopathy CHF (congestive heart failure) Coronary artery disease due to lipid rich plaque Essential hypertension Essential tremor GERD (gastroesophageal reflux disease) Hyperlipidemia Obstructive sleep apnea Pacemaker Surgical History Hx of CABG Status post appendectomy Status post coronary artery bypass graft Family History Sister Age: 79 COPD (chronic obstructive pulmonary disease) Spouse Advanced dementia Social History household members: spouse Smoking Status: Former smoker alcohol intake: current Discharge Plan Discharge Plan Patient Disposition: Home Health Service Provider Discharge Comment: You were admitted to the hospital with a possible stroke. You improved with time and a major reduction in your home medications. 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 Discharge home with home health, recommend home PT/OT. Discharge orders & Medications Prescriptions: New losartan 25 mg tablet 12.5 mg PO DAILY 30 Days Qty: 15 0RF metoprolol succinate 25 mg tablet extended release 24 hr 12.5 mg PO DAILY 30 Days Qty: 15 0RF Continued lamotrigine [Lamictal] 200 MG tablet 200 mg PO BID Qty: 180 3RF atorvastatin 20 mg tablet 20 mg PO DAILY Label Comments: TAKE ONE TABLET BY MOUTH ONE TIME DAILY bupropion HCl 75 mg tablet 75 mg PO BID Label Comments: Take one tablet by mouth twice a day Beni 5 mg tablet 5 mg PO BID Label Comments: TAKE ONE TABLET BY MOUTH TWICE DAILY topiramate 200 mg tablet 200 mg PO BID Label Comments: TAKE ONE TABLET BY MOUTH TWICE DAILY Discontinued losartan 25 mg tablet 25 mg PO DAILY Label Comments: TAKE ONE TABLET BY MOUTH ONE TIME DAILY. DO NOT TAKE IF SYSTOLIC BLOOD PRESSURE IS LESS THAN 100 MMHG. metoprolol succinate 25 mg tablet extended release 24 hr 25 mg PO BID Label Comments: TAKE ONE TABLET BY MOUTH TWICE DAILY spironolactone 25 mg tablet 12.5 mg PO DAILY Label Comments: TAKE 1/2 TABLET BY MOUTH EVERY DAY furosemide 20 mg tablet 20 mg PO DAILY Label Comments: TAKE ONE TABLET BY MOUTH ONE TIME DAILY Follow up/Referrals: Shane Huber MD [Primary Care Provider] - Diet/Activity/Treatments Diet: Diet as Tolerated Activity: As tolerated Discharge Data Primary Care Provider: Shane Huber V Quality VTE Deep Vein Thrombosis/Pulmonary Embolism Present on Admission: No MIPS - Admit I confirm the patient?s Advance Care Plan is present, Code status is documented, Surrogate decision maker is in patient?s record [If Yes, STOP here]: Yes MIPS - DC The patient has current or prior documentation of left ventricular ejection fraction (LVEF) less than 40%, or moderate or severely depressed left ventri cular systolic function.: Yes A. The patient was prescribed or already taking an Angiotensin-Converting Enzyme (ABDON) Inhibitor, or Angiotensin Receptor Helen (ARB).: Yes B. The patient was prescribed or already taking a beta-helen. [If Yes to Both A & B, STOP here]: Yes
[2021-11-12 09:19] VITALS: O2SAT 96
[2021-11-12] MEDS: TOPIRAMATE 100 MG TABLET 200 MG PO (09:27)
[2021-11-12] MEDS: APIXABAN 5 MG TABLET PO (09:27)
[2021-11-12] MEDS: buPROPion 75 MG TABLET PO (09:27)
[2021-11-12] MEDS: lamoTRIgine 100 MG TABLET 200 MG PO (09:27)
[2021-11-12] MEDS: ATORVASTATIN 20 MG TABLET PO (09:27)
--- NOTE | 2021-11-12 09:42 | OT.IP.TRT ---
Current Diagnoses Cerebral infarction, unspecified (11/10/21) Occupational Therapy Treatment Note M2 OT-IP Current Condition Start: 11/11/21 10:10 Freq: Status: Active Protocol: Document 11/11/21 10:14 [facility] (Rec: 11/11/21 10:59 [facility] [id number]) Occupational Therapy Current Condition Current Condition Evaluation Date 11/11/21 Treatment Diagnosis Suspect CVA, diplopia Diagnosis Onset Date 11/10/21 M3 OT- IP Subjective and Pain Start: 11/11/21 10:10 Freq: Status: Active Protocol: Document 11/12/21 09:42 [facility] (Rec: 11/12/21 09:54 [facility] [id number]) OT- Subjective Occupational Therapy Visit Type Type Treatment Note Visit Start Time 08:50 Visit Stop Time 09:42 Total Visit Minutes 52 Occupational Therapy Visit Comments Patient Comments Pt states feels at 75% to his baseline and fells his main issue is blurred/double vision when looking into the distance. Patient/Caregiver Goals To go home. OT Pain Assessment Pain When Pain Assessed At Rest Pain Present Pain Present Denied Pain M4 OT- IP ADL's Start: 11/11/21 10:10 Freq: Status: Active Protocol: Document 11/12/21 09:42 [facility] (Rec: 11/12/21 09:54 [facility] [id number]) OT [id number] General Evaluation Self-Feeding Ability Independent OT ADL-Grooming General Evaluation Grooming Ability Independent OT ADL-Oral Care General Eval Oral Care Ability Independent Comments Oral Care Comments While standing with no device. OT ADL-Dressing General Eval Lower Body Dressing Ability Standby Assistance Comments OT Dressing Comments Close SBA while standing and leaning against the wall to waqar his jeans. Suggested for safety best to start by sitting down to waqar his pants over his feet for safety. OT ADL-Toileting General Evaluation Toileting Ability Independent Comments OT Toileting Comments Pt able to independently use the toilet for all his needs. OT ADL-Bathing Comments OT Bathing Comments Pt insistent to shower at home and wanting to not take the heart leads off until able to get into the shower at home so that the water will help for the stickers to come off easier. Driving Driving Concerns Identified Regarding Safety M6 OT- IP Functional Cognition Start: 11/11/21 10:10 Freq: Status: Active Protocol: Document 11/12/21 09:42 [facility] (Rec: 11/12/21 09:54 [facility] [id number]) Cognitive Factors Limiting Selfcare Function Cognitive Comments Cognitive Assessment Comments Pt scored 208 seconds on TRail Making Part B implies severe deficits for visual attention, speed of processing, mental flexibility, task switching, executive functioning. Pt needing less vc to complete the task from MAXvc to MINvc today. Pt having increased right hand tremors which impending the speed of the assessment by approx 25% of the time. Pt aware that he will not be driving at this time. Pt having much quicker responses for home safety situations today. OT- Vision and Hearing OT- Vision Assessment Vision Assessment Comments Pt states blurred vision for distance. M7 OT- IP Mobility and Balance Start: 11/11/21 10:10 Freq: Status: Active Protocol: Document 11/12/21 09:42 [facility] (Rec: 11/12/21 09:54 [facility] [id number]) OT-Transfer Assessment Sit to and From Stand Sit to and from Stand Independent Transfers Transfer Ability Independent Technique Transfer Destination Bed,Chair,Toilet Transfer Technique Stand Step Pivot Devices Transfer Assistive Devices None Comments Mobility Comments Pt now able to walk in the room with flexed posture due to chronic back pain and appears back to baseline for mobility needs on even surfaces. OT- Balance Assessment Sitting Balance and Reactions Static Sitting Balance Ability Normal Dynamic Sitting Balance Ability Good Standing Balance and Reactions Static Standing Balance Ability Good Dynamic Standing Balance Ability Fair+ M8 OT- IP Objective Assessments Start: 11/11/21 10:10 Freq: Status: Active Protocol: Document 11/11/21 10:14 [facility] (Rec: 11/11/21 10:59 [facility] [id number]) OT Gross Range of Motion Upper Extremity Range of Motion ROM Impairments Pt bilateral shoulders 0-95 for shoulder flexion. OT Strength Comments Strength Comments WFL from elbow to distal 5/5, NT in shoulders due to chronic back pain. OT- Coordination Assessment Upper Extremity Finger to Nose Test Within Functional Limits Finger Tapping Test Within Functional Limits Comments Coordination Comments Pt needing slight increased time more than left hand for finger to nose and finger tapping. OT-Muscle Tone Assessment Muscle Tone WNL Yes OT Sensation Assessment Comments Summary Comments Intact for light touch Edema Edema Absent M9 OT- IP Assessment and Plan Start: 11/11/21 10:10 Freq: Status: Active Protocol: Document 11/12/21 09:42 [facility] (Rec: 11/12/21 09:54 [facility] [id number]) OT Summary Assessment and Plan Potential Rehabilitation Potential Good Analytic Complexity at Evaluation Moderate Summary Progress Towards Goals Progressing Toward Goals Assessment Summary Pt still having difficult with blurred/double vision for distances but his mobility much improved today without a device. Pt states that he will not drive and that his family and caregiver will be available to assist him. Pt will benefit from outpt PT for high level balance needs and be beneficial to get his eyes checks again. Goals Dressing Goal Independent Bathing Goal Independent Shower Transfer Goal Independent Days to Meet Goals 3 Frequency of Treatment Frequency Of Treatment Once a Day Treatment Plan OT Treatment Plan ADL Training,Functional Cognition Training,Functional Mobility,Patient/Family Education,Discharge Planning Discharge Recommendations OT Discharge Recommendations Home with Assistance, Outpatient PT Transportation Needs at Discharge Private Vehicle
== END 2021-11-12 10:22 | disposition home health service (06) ==
LOC: ED 13:08 → LABOR 13:34 → AC 11-11 14:08 → LABOR 11-15 07:54
PROVIDERS: Admitting Provider Internal Medicine; Emergency Provider Emergency Medicine; Family Provider Psychiatry & Neurology Neurology; PCP Internal Medicine; Referring Provider Emergency Medicine; Visit Provider Internal Medicine
DX: I63.9 Cerebral infarction, unspecified (principal); I50.22 Chronic systolic (congestive) heart failure; H53.2 Diplopia; I48.0 Paroxysmal atrial fibrillation; R19.7 Diarrhea, unspecified; F31.9 Bipolar disorder, unspecified; E78.5 Hyperlipidemia, unspecified; I25.10 Atherosclerotic heart disease of native coronary artery without angina pectoris; I11.0 Hypertensive heart disease with heart failure; R29.700 NIHSS score 0; Z95.0 Presence of cardiac pacemaker; Z87.891 Personal history of nicotine dependence; Z20.822 Contact with and (suspected) exposure to COVID-19; Z95.1 Presence of aortocoronary bypass graft; Z79.01 Long term (current) use of anticoagulants
CPT/HCPCS: 36415; 70450; 71045; 80048; 80053; 80061; 80320; 81001; 82550; 82553; 82607; 82746; 82962; 83036; 83540; 83550; 83690; 83735; 83880; 84100; 84443; 84484; 85014; 85018; 85025; 85610; 85730; 87635; 93005; 93307; 96372; 97129; 97162; 97165; 97166; 97530; 97535; 99284; C9803; G0378; J1644

== ENCOUNTER → 2022-07-28 14:19 | Outpatient (CLI) | payer MEDICARE, OTHER, SELFPAY ==
[2021-11-10 14:51] VITALS: BMI 22.7
[2022-07-28 14:54] LABS: Hematocrit 41.2 % (41-53); Hemoglobin 13.9 g/dL (13.5-17.5); Mean Corpuscular HGB Conc 33.7 % (30-36); Mean Corpuscular Hemoglobin 34.3 PG (26-34); Mean Corpuscular Volume 101.8 fL (80-100); Platelet Count 172 X10^3/uL (150-400); Red Blood Cell Count 4.04 X10^6/uL (4.5-5.9); Red Cell Distribution Width 14.2 % (11.6-14.8); White Blood Cell Count 6.6 X10^3/uL (4.5-11.0)
[2022-07-28 15:50] LABS: Alanine Aminotransferase 35 IU/L (<50); Albumin 4.6 g/dL (3.5-5.0); Albumin Globulin Ratio 1.6 (1.0-2.8); Alkaline Phosphatase 96 U/L (38-126); Aspartate Aminotransferase 36 IU/L (17-59); Blood Urea Nitrogen 19 mg/dL (9-20); Calcium 9.6 mg/dL (8.4-10.2); Carbon Dioxide 20 mmol/L (22-32); Chloride 109 mmol/L (98-107); Cholesterol 106 mg/dL (140-199); Estimated Glomerular Filt Rate 52 mL/min (>60); Globulin 2.9 g/dL (1.7-4.1); Glucose 100 mg/dL (80-110); HDL Cholesterol 55 mg/dL (40-60); HEMOLYSIS < 15 (0-50); LDL Cholesterol Calculated 41 mg/dL (<100); Potassium 4.4 mmol/L (3.4-5.1); Sodium 141 mmol/L (137-145); Total Protein 7.5 g/dL (6.3-8.2); Triglycerides 49 mg/dL (35-150)
[2022-07-28 16:18] LABS: TSH w/ Reflex to FT4 1.38 uIU/mL (0.47-4.68)
[2022-07-31 16:07] LABS: Lamotrigine Lamictal 13.4 ug/mL (2.0-20.0)
== END ==
PROVIDERS: Family Provider Psychiatry & Neurology Neurology; PCP Internal Medicine; Referring Provider Internal Medicine; Visit Provider Internal Medicine
DX: E78.2 Mixed hyperlipidemia (principal); I48.20 Chronic atrial fibrillation, unspecified; I50.22 Chronic systolic (congestive) heart failure; F31.9 Bipolar disorder, unspecified
CPT/HCPCS: 36415; 80053; 80061; 80175; 84443; 85027

== ENCOUNTER → 2022-09-01 14:51 | Outpatient (CLI) | payer MEDICARE, OTHER, SELFPAY ==
[2021-11-10 14:51] VITALS: BMI 22.7
--- NOTE | 2022-09-01 | DI.ECHO.S_ITS ---
[facility]---------+ [facility] +---------+ : : [address] : [address] : : : : [id number] : : : : Phone: [phone]---------+ Echocardiogram Report + + :Name: AAAKSH DARBY Study Date: 09/01/2022 Height: 67 in : :[facility] ReadingLocation: Weight: 155 lb : : Gender: Male BSA: 1.8 m2 : :: 1940 Age: 82 yrs BP: 127/75 mmHg: :Reason For Study: Ischemic Cardiomyopathy : :Ordering Physician: Winnie Morgan Performed By: Judi Osei : :Referring: WINNIE MORGAN : + + Interpretation Summary The study quality was technically difficult. Left ventricular ejection fraction is estimated to be 30 +/- 5%. Inferior, inferolateral wall motion abnormality consistant with prior The right ventricular systolic function is normal. The IVC is of normal diameter and collapses less than 50% with a sniff. This suggests a right atrial pressure of 8 mm Hg. Moderate biatrial enlargement. There is mild aortic valve sclerosis, without significant stenosis. Procedure: A two-dimensional transthoracic echocardiogram with color flow and Doppler was performed. Comparison is made with the echocardiogram of 11/08/2021. A contrast injection of Definity was performed to improve assessment of LV function. The study quality was technically difficult. The patient has a paced rhythm. Left Ventricle: The left ventricle is normal in size. Left ventricular ejection fraction is estimated to be 30 +/- 5%. There is basal inferior, mid- inferior, mid-inferoseptal akinesis; there is basal inferolateral, mid- inferolateral, distal inferior hypokinesis. Right Ventricle: The right ventricle is mildly dilated. The right ventricular systolic function is normal. Atria: The left atrium is moderately dilated. The right atrium is moderately dilated. There is no Doppler evidence for an interatrial shunt. Mitral Valve: The mitral valve is normal. There is moderate mitral annular calcification. There is no mitral valve stenosis. There is trace mitral regurgitation. Aortic Valve: The aortic valve is trileaflet. The aortic valve opens well. There is mild aortic valve sclerosis. There is no aortic valve stenosis. There is mild aortic regurgitation. Tricuspid Valve: The tricuspid valve is normal. There is no tricuspid stenosis. There is mild tricuspid regurgitation. Pulmonic Valve: The pulmonic valve leaflets are thin and pliable; valve motion is normal. There is no pulmonic valvular stenosis. There is trace pulmonic regurgitation. Great Vessels: The aortic root is normal size. The ascending aorta is normal in size. The pulmonary artery is normal size. The IVC is of normal diameter and collapses less than 50% with a sniff. This suggests a right atrial pressure of 8 mm Hg. Pericardium/ Pleura There is no pericardial effusion. There is no pleural effusion. MMode/2D Measurements & Calculations LVIDd: 5.2 cm LVOT diam: 1.9 cm LVIDs: 5.5 cm Ao root diam: 2.9 cm FS: -5.8 % asc Aorta Diam: 3.2 cm IVSd: 1.1 cm LVPWd: 1.3 cm LV zamarripa. diameter/BSA (cm/m^2): 2.9 LV sys. diameter/BSA (cm/m^2): 3.0 LA A2 area: 20.7 cm2 RA long axis: 5.3 cm LA A4 area: 21.1 cm2 RA area: 18.6 cm2 LA length (vol): 5.8 cm RA vol: 54.9 ml LA vol: 64.5 ml RA : 30.3 ml/m2 LA vol index: 35.5 ml/m2 RVD1 (basal): 4.6 cm LVLs ap4: 6.5 cm LVLd ap2: 7.6 cm TAPSE_phl: 1.7 cm LVLs ap2: 6.3 cm Doppler Measurements & Calculations Ao V2 max: 117.0 cm/sec LVOT Max Andrés: 50.7 cm/sec Ao V2 mean: 85.8 cm/sec LV V1 max P.0 mmHg Ao max P.0 mmHg LV V1 VTI: 10.9 cm Ao mean P.0 mmHg ОЛЬГА(I,D): 1.2 cm2 Ao V2 VTI: 25.1 cm ОЛЬГА(V,D): 1.2 cm2 sev ratio: 0.43 ОЛЬГА indexed to BSA (cm^2/m^2): 0.68 AI P1/2t: 378.3 msec AI dec slope: 295.0 cm/sec2 TR max andrés: 255.2 cm/sec SV(LVOT): 30.9 ml TR max P.2 mmHg PA V2 max: 62.7 cm/sec PA V2 mean: 49.2 cm/sec PA mean P.0 mmHg PA pr(Accel): 49.3 mmHg AV P1/2t-pr_phl: 378.0 msec AV VR_phl: 0.43 ОЛЬГА(VTI)/BSA_phl: 0.68 Reading Physician:LEONEL
== END ==
PROVIDERS: Family Provider Psychiatry & Neurology Neurology; PCP Internal Medicine; Referring Provider Internal Medicine Cardiovascular Disease; Visit Provider Internal Medicine Cardiovascular Disease
DX: I25.5 Ischemic cardiomyopathy (principal); I08.3 Combined rheumatic disorders of mitral, aortic and tricuspid valves
CPT/HCPCS: 93306; Q9957

== ENCOUNTER → 2023-02-05 16:06 | Outpatient (CLI) | payer MEDICARE, OTHER, SELFPAY ==
[2021-11-10 14:51] VITALS: BMI 22.7
[2023-02-05 17:00] LABS: BUN Creatinine Ratio 7.8 (6-22); Blood Urea Nitrogen 10 mg/dL (9-20); Calcium 10.1 mg/dL (8.4-10.2); Carbon Dioxide 25 mmol/L (22-32); Chloride 109 mmol/L (98-107); Estimated Glomerular Filt Rate 55 mL/min (>60); Glucose 104 mg/dL (80-110); Potassium 4.5 mmol/L (3.4-5.1); Sodium 143 mmol/L (137-145)
[2023-02-05 17:16] LABS: HEMOLYSIS < 15 (0-50)
== END ==
PROVIDERS: Family Provider Psychiatry & Neurology Neurology; PCP Internal Medicine; Referring Provider Internal Medicine; Visit Provider Internal Medicine
DX: R79.89 Other specified abnormal findings of blood chemistry (principal)
CPT/HCPCS: 36415; 80048

== ENCOUNTER → 2023-10-03 15:11 | Outpatient (CLI) | payer MEDICARE, OTHER, SELFPAY ==
[2021-11-10 14:51] VITALS: BMI 22.7
--- NOTE | 2023-10-03 15:14 | DI.RAD.S_ITS ---
PROCEDURE: XR CHEST 2V INDICATIONS: cough/covid TECHNIQUE: 2 views of the chest were acquired. COMPARISON: July 13, 2016. 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 Wire sutures noted in the sternum.. Lungs and pleura: Patchy airspace disease present in the right lower lobe which may represent developing pneumonia. No consolidation. No pleural effusion. The upper lungs are clear. Mediastinum: Mediastinal contours are normal. Heart size is slightly enlarged. Bones and chest wall: No suspicious bony abnormalities. Soft tissues appear unremarkable. IMPRESSION: Right lower lung patchy airspace disease, likely representing developing pneumonia. Dictated by: Jack Ramachandran M.D. on 10/04/2023 at 13:29 Approved by: Jack Ramachandran M.D. on 10/04/2023 at 13:33
[2023-10-03 16:24] LABS: Hemoglobin 13.4 g/dL (13.5-17.5); Mean Corpuscular HGB Conc 33.5 % (30-36); Mean Corpuscular Hemoglobin 34.5 PG (26-34); Mean Corpuscular Volume 102.9 fL (80-100); Platelet Count 156 X10^3/uL (150-400); Red Blood Cell Count 3.88 X10^6/uL (4.5-5.9); Red Cell Distribution Width 14.6 % (11.6-14.8); White Blood Cell Count 6.1 X10^3/uL (4.5-11.0)
[2023-10-03 16:59] LABS: Alanine Aminotransferase 33 IU/L (<50); Albumin 4.3 g/dL (3.5-5.0); Albumin Globulin Ratio 1.8 (1.0-2.8); Alkaline Phosphatase 131 U/L (38-126); Aspartate Aminotransferase 35 IU/L (17-59); BUN Creatinine Ratio 17.5 (6-22); Bilirubin Total 0.4 mg/dL (0.2-1.3); Blood Urea Nitrogen 28 mg/dL (9-20); Calcium 9.3 mg/dL (8.4-10.2); Carbon Dioxide 18 mmol/L (22-32); Chloride 113 mmol/L (98-107); Cholesterol 90 mg/dL (140-199); Estimated Glomerular Filt Rate 42 mL/min (>60); Globulin 2.4 g/dL (1.7-4.1); Glucose 85 mg/dL (80-110); HDL Cholesterol 49 mg/dL (40-60); HEMOLYSIS < 15 (0-50); LDL Cholesterol Calculated 25 mg/dL (<100); Potassium 4.6 mmol/L (3.4-5.1); Sodium 142 mmol/L (137-145); Total Protein 6.7 g/dL (6.3-8.2); Triglycerides 79 mg/dL (35-150)
[2023-10-03 17:29] LABS: Prostate Specific Antigen 1.32 ng/mL (0.10-4.00)
[2023-10-03 17:30] LABS: TSH w/ Reflex to FT4 1.54 uIU/mL (0.47-4.68)
[2023-10-06 08:13] LABS: Lamotrigine Lamictal 3.9 ug/mL (2.0-20.0)
== END ==
PROVIDERS: Family Provider Psychiatry & Neurology Neurology; PCP Internal Medicine; Referring Provider Internal Medicine; Visit Provider Internal Medicine
DX: Z20.822 Contact with and (suspected) exposure to COVID-19 (principal); R05.8 Other specified cough; N18.31 Chronic kidney disease, stage 3a; N40.1 Benign prostatic hyperplasia with lower urinary tract symptoms; N13.8 Other obstructive and reflux uropathy; E78.2 Mixed hyperlipidemia; F31.9 Bipolar disorder, unspecified; Z95.0 Presence of cardiac pacemaker
CPT/HCPCS: 36415; 71046; 80053; 80061; 80175; 84153; 84443; 85027

== ENCOUNTER → 2024-03-11 10:13 | Outpatient (CLI) | payer MEDICARE, OTHER, SELFPAY ==
[2021-11-10 14:51] VITALS: BMI 22.7
[2024-03-11 10:46] LABS: Add Manual Diff / Slide Review NO; Basophils Absolute Auto 100 /uL (0-100); Basophils Percent Auto 0.7 % (0-2); Eosinophils Absolute Auto 200 /uL (0-450); Eosinophils Percent Auto 2.6 % (2-4); Hematocrit 41.4 % (41-53); Hemoglobin 13.8 g/dL (13.5-17.5); Lymphocytes Absolute Auto 900 /uL (1100-4500); Lymphocytes Percent Auto 9.4 % (25-40); Mean Corpuscular HGB Conc 33.3 % (30-36); Mean Corpuscular Hemoglobin 34.5 PG (26-34); Mean Corpuscular Volume 103.6 fL (80-100); Monocytes Absolute Auto 1400 /uL (0-900); Monocytes Percent Auto 14.9 % (3-14); Neutrophils Absolute Auto 6600 /uL (1500-7000); Neutrophils Percent Auto 72.4 % (50-75); Platelet Count 227 X10^3/uL (150-400); White Blood Cell Count 9.2 X10^3/uL (4.5-11.0)
[2024-03-11 11:21] LABS: Alanine Aminotransferase 29 IU/L (<50); Albumin 4.3 g/dL (3.5-5.0); Albumin Globulin Ratio 1.6 (1.0-2.8); Alkaline Phosphatase 140 U/L (38-126); Aspartate Aminotransferase 35 IU/L (17-59); BUN Creatinine Ratio 13.3 (6-22); Bilirubin Total 0.6 mg/dL (0.2-1.3); Blood Urea Nitrogen 23 mg/dL (9-20); Carbon Dioxide 23 mmol/L (22-32); Chloride 105 mmol/L (98-107); Estimated Glomerular Filt Rate 39 mL/min (>60); Globulin 2.7 g/dL (1.7-4.1); Glucose 92 mg/dL (80-110); HEMOLYSIS < 15 (0-50); Sodium 138 mmol/L (137-145)
[2024-03-11 11:25] LABS: Potassium 5.4 mmol/L (3.4-5.1)
== END ==
PROVIDERS: Family Provider Psychiatry & Neurology Neurology; PCP Internal Medicine; Referring Provider Physician Assistant; Visit Provider Physician Assistant
DX: K52.9 Noninfective gastroenteritis and colitis, unspecified (principal)
CPT/HCPCS: 36415; 80053; 85025

== ENCOUNTER → 2024-03-14 13:02 | Outpatient (CLI) | payer MEDICARE, OTHER, SELFPAY ==
[2021-11-10 14:51] VITALS: BMI 22.7
[2024-03-14 14:24] LABS: HEMOLYSIS < 15 (0-50); Potassium 4.8 mmol/L (3.4-5.1)
== END ==
PROVIDERS: Family Provider Psychiatry & Neurology Neurology; PCP Internal Medicine; Referring Provider Physician Assistant; Visit Provider Physician Assistant
DX: E87.5 Hyperkalemia (principal)
CPT/HCPCS: 36415; 84132

== ENCOUNTER → 2024-04-08 14:40 | Outpatient (CLI) | payer MEDICARE, OTHER, SELFPAY ==
[2021-11-10 14:51] VITALS: BMI 22.7
[2024-04-08 16:04] LABS: Carbon Dioxide 21 mmol/L (22-32); Chloride 107 mmol/L (98-107); HEMOLYSIS < 15 (0-50); Potassium 4.2 mmol/L (3.4-5.1); Sodium 139 mmol/L (137-145)
[2024-04-08 16:06] LABS: BUN Creatinine Ratio 18.8 (6-22); Blood Urea Nitrogen 24 mg/dL (9-20); Calcium 9.5 mg/dL (8.4-10.2); Estimated Glomerular Filt Rate 56 mL/min (>60); Glucose 85 mg/dL (80-110)
== END ==
PROVIDERS: Family Provider Psychiatry & Neurology Neurology; PCP Internal Medicine; Referring Provider Internal Medicine; Visit Provider Internal Medicine
DX: N18.31 Chronic kidney disease, stage 3a (principal)
CPT/HCPCS: 36415; 80048

== ENCOUNTER → 2024-10-07 15:24 | Outpatient (CLI) | payer MEDICARE, OTHER, SELFPAY ==
[2021-11-10 14:51] VITALS: BMI 22.7
[2024-10-07 16:29] LABS: Hematocrit 38.6 % (41-53); Hemoglobin 12.9 g/dL (13.5-17.5); Mean Corpuscular HGB Conc 33.5 % (30-36); Mean Corpuscular Hemoglobin 34.5 PG (26-34); Mean Corpuscular Volume 102.8 fL (80-100); Platelet Count 196 X10^3/uL (150-400)
[2024-10-07 17:06] LABS: Alanine Aminotransferase 16 IU/L (<50); Albumin 4.4 g/dL (3.5-5.0); Albumin Globulin Ratio 1.6 (1.0-2.8); Alkaline Phosphatase 111 U/L (38-126); Blood Urea Nitrogen 11 mg/dL (9-20); Calcium 9.6 mg/dL (8.4-10.2); Carbon Dioxide 19 mmol/L (22-32); Chloride 111 mmol/L (98-107); Cholesterol 99 mg/dL (140-199); Estimated Glomerular Filt Rate 51 mL/min (>60); Globulin 2.8 g/dL (1.7-4.1); Glucose 97 mg/dL (70-99); HDL Cholesterol 48 mg/dL (40-60); HEMOLYSIS < 15 (0-50); Potassium 4.2 mmol/L (3.4-5.1); Sodium 142 mmol/L (137-145); Total Protein 7.2 g/dL (6.3-8.2); Triglycerides 99 mg/dL (35-150)
[2024-10-07 17:37] LABS: Prostate Specific Antigen 1.50 ng/mL (0.10-4.00); TSH w/ Reflex to FT4 0.90 uIU/mL (0.47-4.68)
[2024-10-07 17:59] LABS: Vitamin B12 Reflex MMA if <400 514 pg/mL (239-931)
[2024-10-10 10:36] LABS: Lamotrigine Lamictal 14.3 ug/mL (2.0-20.0)
== END ==
PROVIDERS: PCP Internal Medicine; Referring Provider Internal Medicine; Visit Provider Internal Medicine
DX: I48.20 Chronic atrial fibrillation, unspecified (principal); E78.2 Mixed hyperlipidemia; N40.1 Benign prostatic hyperplasia with lower urinary tract symptoms; N13.8 Other obstructive and reflux uropathy; F31.70 Bipolar disorder, currently in remission, most recent episode unspecified
CPT/HCPCS: 36415; 80053; 80061; 80175; 80201; 82607; 84153; 84443; 85027

== ENCOUNTER → 2024-10-16 13:59 | Outpatient (CLI) | payer MEDICARE, OTHER, SELFPAY ==
[2021-11-10 14:51] VITALS: BMI 22.7
--- NOTE | 2024-10-16 14:00 | DI.CT.S_ITS ---
PROCEDURE: CT HEAD/BRAIN WO CON INDICATIONS: dementia TECHNIQUE: Noncontrast 4.5 mm thick angled axial sections acquired from the foramen magnum to the vertex, with coronal and sagittal reformats. For radiation dose reduction, the following was used: automated exposure control, adjustment of mA and/or kV according to patient size. COMPARISON: [facility], MR, MR BRAIN WITHOUT CONTRAST, 12/17/2023, 10:12. [facility], CT, CT HEAD WITHOUT CONTRAST, 12/15/2023, 11:16. [facility], CT, CT ANGIO HEAD AND NECK, 12/14/2023, 15:13. [facility], CT, CT HEAD WITHOUT CONTRAST, 12/14/2023, 15:13. [facility], CT, CT HEAD/BRAIN WO CON, 11/10/2021, 11:25. FINDINGS: Image quality: Diagnostic. CSF spaces: Basal cisterns are patent. No extra-axial fluid collections. The ventricles are symmetric in size and shape. Brain: No intracranial bleeds or mass effect. There is cerebral volume loss, with resultant ventricular and sulcal prominence. There are periventricular and deep white matter chronic small vessel ischemic changes. There is intracranial internal carotid artery atherosclerosis. Skull and face: Calvarium and visualized facial bones appear intact, without suspicious lesions. Sinuses: Visualized sinuses and mastoids are clear. IMPRESSION: Noncontrast head CT similar to the priors. Dictated by: Kel Lin M.D. on 10/16/2024 at 17:46 Approved by: Kel Lin M.D. on 10/16/2024 at 17:48
== END ==
PROVIDERS: PCP Internal Medicine; Referring Provider Internal Medicine; Visit Provider Internal Medicine
DX: G31.84 Mild cognitive impairment of uncertain or unknown etiology (principal); R97.8 Other abnormal tumor markers; R19.7 Diarrhea, unspecified; M79.604 Pain in right leg; M79.605 Pain in left leg
CPT/HCPCS: 36415; 70450; 82378; 86140

== ENCOUNTER → 2024-10-16 16:21 | Outpatient (CLI) | payer MEDICARE, OTHER, SELFPAY ==
[2021-11-10 14:51] VITALS: BMI 22.7
[2024-10-16 18:52] LABS: Carcinoembryonic Antigen 2.3 ng/mL (0.1-3.0)
== END ==
PROVIDERS: PCP Internal Medicine; Referring Provider Physician Assistant; Visit Provider Physician Assistant
DX: R97.8 Other abnormal tumor markers (principal); R19.7 Diarrhea, unspecified
CPT/HCPCS: 36415; 82378; 86140